=== PATIENT | male | born 1950 | race Two or more races ===

== ENCOUNTER 2016-05-26 11:25 | Emergency (ER) | payer MEDICARE, MEDICAID ==
[2016-05-26] MEDS ORDERED: Sodium Chloride 0.9% 10 ML Syringe FLUSH PRN (11:28)
[2016-05-26 11:50] VITALS: BP 121/64
--- NOTE | 2016-05-26 11:56 | CT ---
Head CT Technique: Multiple axial sections through the brain were obtained. Intravenous contrast was not utilized. Comparison: No previous study. Findings: Artifact identified within the left side of the suprasellar cistern compatible with surgical clip from aneurysm repair. Previous left-sided craniotomy is seen. Encephalomalacia change is noted within the left temporal lobe. Ventricles along with basal cisterns and sulci over convexities are moderately prominent. Low density is noted within the left frontal lobe also felt to represent encephalomalacia. Minimal diminished density is noted within the periventricular white matter compatible with small vessel ischemic demyelination change. No other abnormal parenchymal densities are seen. No evidence of intracranial hemorrhage. Bone window settings were reviewed which shows slight mucosal thickening within the right side of the sphenoid sinus which is felt to be incidental. No acute calvarial abnormality is seen. Impression: 1. Artifact from aneurysm clip located within the left side of the suprasellar cistern. 2. Encephalomalacia within the left frontal and left temporal lobe. Mild small vessel ischemic change is noted within the periventricular white matter. 3. Other incidental findings. Nothing acute is identified. Diagnostic code #2
--- NOTE | 2016-05-26 12:04 | CR ---
Chest: Portable view of the chest was obtained. Comparison: No previous study. Heart size and mediastinum are within normal limits. Lungs are clear with no acute infiltrates. Bony structures are grossly intact. Impression: 1. Nothing acute is identified on portable chest x-ray. Diagnostic code #1
--- NOTE | 2016-05-26 13:11 | EDM.PDOC ---
ED HPI NEURO - General Chief Complaint: Neurological Problem Stated Complaint: [facility] Time Seen by Provider: 05/26/16 11:28 Source of Information: Reports: EMS, [facility] records History Limitations: Reports: Altered mental status - History of Present Illness INITIAL COMMENTS - FREE TEXT/NARRATIVE: The patient presents from [facility] in [place] with neurological complaints. He came by [place] [facility]. He has a history of an cerebral aneurysm and bleed with surgery. He has some cognitive deficits from that. This morning they noted that he was leaning more to the left side when sitting and standing. They were concerned he had another stroke. He has a productive cough but no fever. When I asked him if anything hurts, he said to get out of my room. He had no other complaints here. Timing/Duration: Reports: Hour(s): Location (Neuro Complaint): Reports: other (Leaning to the left) Quality (Neuro Complaint): Reports: weakness Severity: mild Improves with: Reports: None Worsens with: Reports: None Associated Symptoms: Reports: no other symptoms - Related Data Allergies/ADRs: Allergies Allergy/AdvReac Type Severity Reaction Status Date / Time No Known Allergies Allergy Verified 05/26/16 11:34 Home Meds: Home Meds Acetaminophen [Tylenol] 650 mg PO Q4H PRN 05/26/16 [History] Ascorbate Calcium [Vitamin C] 500 mg PO TID 05/26/16 [History] Aspirin 81 mg PO DAILY 05/26/16 [History] Azithromycin [IJD: Azithromycin] 250 mg PO DAILY #6 tab 05/26/16 [Rx] LORazepam [Ativan] 0.5 mg PO BID 05/26/16 [History] Loperamide HCl [Imodium A-D] 4 mg PO ONETIME 05/26/16 [History] Magnesium Hydroxide [Milk of Magnesia] 30 ml PO DAILY PRN 05/26/16 [History] fentaNYL [Duragesic] 25 mcg TOP Q72H 05/26/16 [History] risperiDONE 0.5 mg PO DAILY 05/26/16 [History] risperiDONE 1 mg PO DAILY 05/26/16 [History] Past Medical History Cardiovascular History: Reports: Aneurysm, Blood clots/VTE/DVT Gastrointestinal History: Reports: Chronic constipation Genitourinary History: Reports: Chronic renal insuffiency Neurological History: Reports: Cerebral aneurysms Psychiatric History: Reports: Anxiety, Dementia, Schizophrenia - Past Surgical History Musculoskeletal Surgical History: Reports: Other (see below) Other Musculoskeletal Surgeries/Procedures:: rotator cuff tear Social & Family History - Tobacco Use Smoking Status *Q: Unknown Ever Smoked - Caffeine Use Caffeine Use: Reports: None - Recreational Drug Use Recreational Drug Use: No ED ROS GENERAL - Review of Systems Review Of Systems: See Below Constitutional: Reports: no symptoms HEENT: Reports: No symptoms Respiratory: Reports: No Symptoms Cardiovascular: Reports: No symptoms Endocrine: Reports: no symptoms GI/Abdominal: Reports: No symptoms : Reports: no symptoms Musculoskeletal: Reports: no symptoms Neurological: Reports: Other (Leaning to the left) ED EXAM, NEURO - Physical Exam Exam: See Below Exam Limited By: Altered mental status (slightly confused) Ears: normal external exam Nose: normal inspection Head Exam: atraumatic, normocephalic Neck: normal inspection Respiratory/Chest: no respiratory distress, rhonchi (Cleared after coughing) Cardiovascular: regular rate, rhythm, no edema, no murmur GI/Abdominal: soft, non tender, no organomegaly, no mass Neurological: alert, other (Generalized weakness. He will talke but will not answer my questions.) EKG INTERPRETATION EKG Date: 05/26/16 Time: 11:40 Rhythm: NSR Rate (beats/min): 91 [place]: normal P-wave: present QRS: normal ST-T: normal QT: normal Course - Vital Signs Last Recorded V/S: Last Vital Signs Temp 97.4 F 05/26/16 11:44 Pulse 91 05/26/16 11:44 Resp 16 05/26/16 11:44 BP 121/64 05/26/16 11:44 Pulse Ox 92 L 05/26/16 11:44 - Orders/Labs/Meds Orders: Active Orders 24 hr Category Date Time Status Cardiac Monitoring [RC] . DIRECTED Care 05/26/16 11:28 Active EKG Documentation Completion [RC] STAT Care 05/26/16 11:28 Active Oxygen Therapy [RC] PRN Care 05/26/16 11:28 Active Peripheral IV Care [RC] . DIRECTED Care 05/26/16 11:29 Active Sodium Chloride 0.9% [Saline Flush] Med 05/26/16 11:28 Active 10 ml FLUSH ASDIRECTED PRN Peripheral IV Insertion Adult [OM.PC] Stat Oth 05/26/16 11:28 Ordered Medication Orders Sodium Chloride (Saline Flush) 10 ml FLUSH ASDIRECTED PRN PRN Reason: Keep Vein Open Last Admin: 05/26/16 11:58 Dose: 10 ml Labs: Laboratory Tests 05/26/16 05/26/16 05/26/16 Range/Units 11:54 11:54 12:25 WBC 12.24 H (4.23-9.07) K/mm3 RBC 3.79 L (4.63-6.08) M/mm3 Hgb 12.2 L (13.7-17.5) gm/L Hct 37.8 L (40.1-51.0) % MCV 99.7 H (79.0-92.2) fl MCH 32.2 (25.7-32.2) pg MCHC 32.3 (32.2-35.5) g/dl RDW Std Deviation 45.8 H (35.1-43.9) fL Plt Count 256 (163-337) K/mm3 MPV 9.7 (9.4-12.3) fl Neut % (Auto) 81.3 H (34.0-67.9) % Lymph % (Auto) 8.5 L (21.8-53.1) % [place] % (Auto) 6.9 (5.3-12.2) % Eos % (Auto) 3.0 (0.8-7.0) Baso % (Auto) 0.1 (0.1-1.2) % Neut # (Auto) 9.94 H (1.78-5.38) K/mm3 Lymph # (Auto) 1.04 L (1.32-3.57) K/mm3 [place] # (Auto) 0.85 H (0.30-0.82) K/mm3 Eos # (Auto) 0.37 (0.04-0.54) K/mm3 Baso # (Auto) 0.01 (0.01-0.08) K/mm3 Manual Slide Review Abnormal smear Sodium 142 (136-145) mEq/L Potassium 4.5 (3.5-5.1) mEq/L Chloride 105 (98-107) mEq/L Carbon Dioxide 28 (21-32) mEq/L Anion Gap 13.5 (5-15) BUN 23 H (7-18) mg/dL Creatinine 1.4 H (0.7-1.3) mg/dL Est Cr Clr Drug Dosing TNP Estimated GFR (MDRD) 50 (>60) mL/min BUN/Creatinine Ratio 16.4 (14-18) Glucose 98 (80-115) mg/dL Calcium 9.7 (8.5-10.1) mg/dL Total Bilirubin 0.5 (0.2-1.0) mg/dL AST 32 (15-37) U/L ALT 32 (16-63) U/L Alkaline Phosphatase 47 (46-116) U/L Troponin I < 0.017 (0.00-0.056) ng/mL Total Protein 7.8 (6.4-8.2) g/dl Albumin 3.7 (3.4-5.0) g/dl Globulin 4.1 gm/dL Albumin/Globulin Ratio 0.9 L (1-2) Urine Color Yellow (Yellow) Urine Appearance Clear (Clear) Urine pH 6.0 (5.0-8.0) Ur Specific [place] 1.025 (1.005-1.030) Urine Protein 1+ H (Negative) Urine Glucose (UA) Negative (Negative) Urine Ketones 2+ H (Negative) Urine Occult Blood Trace-lysed H (Negative) Urine Nitrite Negative (Negative) Urine Bilirubin 1+ H (Negative) Urine Urobilinogen 0.2 (0.2-1.0) Ur Leukocyte Esterase Negative (Negative) Urine RBC 0-5 (0-5) /hpf Urine WBC 0-5 (0-5) /hpf Ur Epithelial Cells Not seen (0-5) /hpf Urine Bacteria Few (FEW) /hpf Urine Mucus Few (FEW) /hpf Meds: Medications Generic Name Dose Route Start Last Admin Trade Name Freq PRN Reason Stop Dose Admin Sodium Chloride 10 ml 05/26/16 11:28 05/26/16 11:58 Saline Flush FLUSH 10 ml ASDIRECTED PRN Administration Keep Vein Open - Re-Assessments/Exams Free Text/Narrative Re-Assessment/Exam: 05/26/16 13:12 I ordered an IV saline lock, oxygen, EKG, CXR, CT of his head, labs and UA. His EKG shows a NSR with no acute changes. His CXR shows nothing acute. His CT of his head shows artifact from aneurysm clip located within the left side of the suprasellar cistern. Encephalomalacia within the left frontal and left temporal lobe. Mild small vessel ischemic change is noted within the periventricular white matter. Nothing acute is identified. His WBC was elevated at 12.24. His Hgb was a little low at 12.2. His creatinine was elevated at 1.4. His troponin was negative. His UA was negative for UTI. I feel he has some bronchitis and may benefit from some zithromax. 05/26/16 13:23 The patient is up walking around and doing good. I will discharge him back to the detention. Departure - Departure Time of Disposition: 13:20 Disposition: Home, Self-Care 01 Condition: good Clinical Impression: Weakness, Bronchitis Prescriptions: Azithromycin [IJD: Azithromycin] 250 mg PO DAILY #6 tab Referrals: Eze Steve MD [Primary Care Provider] - 1 Week Forms: ED Department Discharge Additional Instructions: Take the zithromax 2 pills on day 1 and 1 pill on day 2 through 5. Take your medication as prescribed. Please return if you are worse. - My Orders Last 24 Hours: My Active Orders 05/26/16 11:28 Cardiac Monitoring [RC] . DIRECTED EKG Documentation Completion [RC] STAT Oxygen Therapy [RC] PRN Sodium Chloride 0.9% [Saline Flush] 10 ml FLUSH ASDIRECTED PRN Peripheral IV Insertion Adult [OM.PC] Stat 05/26/16 11:29 Peripheral IV Care [RC] . DIRECTED - Assessment/Plan Last 24 Hours: My Active Orders 05/26/16 11:28 Cardiac Monitoring [RC] . DIRECTED EKG Documentation Completion [RC] STAT Oxygen Therapy [RC] PRN Sodium Chloride 0.9% [Saline Flush] 10 ml FLUSH ASDIRECTED PRN Peripheral IV Insertion Adult [OM.PC] Stat 05/26/16 11:29 Peripheral IV Care [RC] . DIRECTED
== END 2016-05-26 14:20 | disposition home or self-care (01) ==
LOC: JD.ED 11:25
DX: R53.1 Weakness (principal); J40 Bronchitis, not specified as acute or chronic; N18.9 Chronic kidney disease, unspecified; F41.9 Anxiety disorder, unspecified; F03.90 Unspecified dementia, unspecified severity, without behavioral disturbance, psychotic disturbance, mood disturbance, and anxiety; F20.9 Schizophrenia, unspecified; Z98.890 Other specified postprocedural states; Z79.2 Long term (current) use of antibiotics; Z79.899 Other long term (current) drug therapy; Z79.82 Long term (current) use of aspirin
CPT/HCPCS: 36415; 70450; 71010; 80053; 81001; 84484; 85025; 93005; 99285; J7050

== ENCOUNTER 2016-08-14 15:22 | Inpatient (IN) | payer MEDICARE, MEDICAID ==
--- NOTE | 2016-08-14 16:33 | EDM.PDOC ---
ED HPI GENERAL MEDICAL PROBLEM - General Chief Complaint: Lower Extremity Injury/Pain Stated Complaint: FEVER, UNABLE TO WALK Time Seen by Provider: 08/14/16 15:50 Source of Information: Reports: Fpc Records History Limitations: Reports: Altered Mental Status - History of Present Illness INITIAL COMMENTS - FREE TEXT/NARRATIVE: Patient is a 66-year-old male with a history of Alzheimer's dementia who presents from [facility] with concerns of inability to walk and having a fever. Staff notes patient had a fever of 100.0F and was given Tylenol earlier in the day. He reports to the ED with temperature on admission of 97.6. Patient has felt warm to touch per staff. In addition patient has a lesion to the right ear. They've been treating with Silvadene. It has only mild redness noted. No drainage noted. Unclear how lesion started. There was no recent fall. Patient is normally able to ambulate on his own accord with no difficulties. Patient has a history of cerebral aneurysms nonruptured with aneurysm clipping, anxiety, dementia, schizophrenia, bipolar, anemia, chronic kidney disease, DVTs , and bilateral rotator cuff tears. He is on a multitude of medications please see list. 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 - Related Data Allergies Allergy/AdvReac Type Severity Reaction Status Date / Time No Known Allergies Allergy Verified 08/14/16 15:58 Home Meds: Home Meds Acetaminophen [Tylenol] 650 mg PO Q4H PRN 05/26/16 [History] Ascorbate Calcium [Vitamin C] 500 mg PO TID 05/26/16 [History] Aspirin 81 mg PO DAILY 05/26/16 [History] Magnesium Hydroxide [Milk of Magnesia] 30 ml PO DAILY PRN 05/26/16 [History] fentaNYL [Duragesic] 12 mcg TOP Q72H 05/26/16 [History] risperiDONE 1 mg PO DAILY 05/26/16 [History] Sennosides/Docusate Sodium [Senna-Docusate Sodium] 1 tab PO QAM 08/14/16 [ History] Silver Sulfadiazine [Silvadene 1% Cream 20 GM] 1 TOP BID 08/15/16 [History] Past Medical History Cardiovascular History: Reports: Aneurysm, Blood Clots/VTE/DVT Gastrointestinal History: Reports: Chronic Constipation Genitourinary History: Reports: Chronic Renal Insuffiency Neurological History: Reports: Cerebral Aneurysms Psychiatric History: Reports: Anxiety, Dementia, Schizophrenia - Past Surgical History Musculoskeletal Surgical History: Reports: Other (See Below) Social & Family History - Tobacco Use Smoking Status *Q: Never Smoker Second Hand Smoke Exposure: No - Caffeine Use Caffeine Use: Reports: None - Recreational Drug Use Recreational Drug Use: No Review of Systems - Review of Systems Review Of Systems: Unable To Obtain ED EXAM, GENERAL - Physical Exam Exam: See Below Exam Limited By: Other (Dementia, uncooperative) General Appearance: Alert, WD/WN, No Apparent Distress, Cachetic Eye Exam: Bilateral Eye: Other (left pupil >right pupil non reactive to light. Right pupil is pinpoint. Patient normally wears a patch over the left eye, presumably blind. Left upper eyelid is droopier in comparison to the right. ) Ears: Hearing Grossly Normal, Other (small open lesion to the right helix with mild erythema. no draining present. ) Ear Exam: Left Ear: TM normal, Bilateral Ear: Canal Normal, Other (right TM obscurred with cerumen) Nose: Normal Inspection, Nasal Drainage, Clear Rhinorrhea Throat/Mouth: Normal Voice, No Airway Compromise, Other (no facial droop or tongue deviation) Neck: Normal Inspection, Supple, Non-Tender, Full Range of Motion. No: Lymphadenopathy (L), Lymphadenopathy (R) Respiratory/Chest: No Respiratory Distress, Lungs Clear, Normal Breath Sounds, No Accessory Muscle Use, Chest Non-Tender Cardiovascular: Normal Peripheral Pulses, Regular Rate, Rhythm Peripheral Pulses: 2+: Radial (R) GI/Abdominal: Normal Bowel Sounds, Soft, Non-Tender, No Organomegaly, No Distention, No Mass, Pelvis Stable (Male) Exam: Normal Inspection, Circumcised Back Exam: Normal Inspection, Full Range of Motion Extremities: Normal Inspection, Normal Range of Motion, Non-Tender, No Pedal Edema, Normal Capillary Refill, Other (Patient was able to weight bare and move via shuffling feet. No assistance required. Moves all extremities. ) Neurological: Alert, CN II-XII Intact, Other (Weakness noted to upper extremities bilaterally. No discrepancy noted. ) Psychiatric: Flat Affect Skin Exam: Warm, Dry, Normal Color Course - Vital Signs Last Recorded V/S: Last Vital Signs Temp 98.2 F 08/15/16 02:46 Pulse 86 08/15/16 02:46 Resp 14 08/15/16 02:46 BP 98/54 L 08/15/16 02:46 Pulse Ox 93 L 08/15/16 10:21 - Orders/Labs/Meds Orders: Active Orders 24 hr Category Date Time Status Chest 1V Frontal [CR] Stat Exams 08/14/16 16:27 Taken CULTURE BLOOD [BC] Stat Lab 08/14/16 17:00 Results CULTURE BLOOD [BC] Stat Lab 08/14/16 18:10 Received Blood Culture x2 Reflex Set [OM.PC] Stat Oth 08/14/16 16:32 Ordered Medication Orders Acetaminophen (Tylenol) 650 mg PO Q6H PRN PRN Reason: Fever Last Admin: 08/15/16 09:35 Dose: 650 mg Albuterol (Proventil Neb Soln) 2.5 mg NEB Q4HRRT PRN PRN Reason: Shortness of Breath Albuterol/Ipratropium (Duoneb 3.0-0.5 Mg/3 Ml) 3 ml NEB QID PRN PRN Reason: Shortness of Breath Aspirin (Aspirin) 81 mg PO DAILY [facility] Last Admin: 08/15/16 09:12 Dose: 81 mg Enoxaparin Sodium (Lovenox) 30 mg SUBCUT DAILY [facility] Last Admin: 08/15/16 09:12 Dose: 30 mg Fentanyl (Duragesic) 25 mcg TOP Q72H [facility] Last Admin: 08/14/16 22:11 Dose: 25 mcg Piperacillin Sod/Tazobactam (Sod 4.5 gm/ Sodium Chloride) 100 mls @ 25 mls/hr IV Q8H [facility] Last Admin: 08/15/16 05:36 Dose: 25 mls/hr Sodium Chloride (Normal Saline) 1,000 mls @ 125 mls/hr IV ASDIRECTED [facility] Last Admin: 08/15/16 05:37 Dose: 125 mls/hr Infusion: 08/15/16 05:37 Dose: 125 mls/hr Admin: 08/14/16 22:03 Dose: 125 mls/hr Ibuprofen (Motrin) 600 mg PO Q8H PRN PRN Reason: Pain (moderate 4-6) Last Admin: 08/14/16 22:05 Dose: 600 mg Miscellaneous Information (Remove Patch) 1 ea TRDERM Q72H [facility] Last Admin: 08/14/16 22:15 Dose: 1 ea Risperidone (Risperidal) 1 mg PO DAILY [facility] Last Admin: 08/15/16 09:12 Dose: 1 mg Senna/Docusate Sodium (Senna Plus) 1 tab PO QAM [facility] Last Admin: 08/15/16 09:12 Dose: 1 tab Labs: Laboratory Tests 08/14/16 08/14/16 08/14/16 Range/Units 17:00 17:00 17:00 WBC 23.74 H (4.23-9.07) K/mm3 RBC 3.96 L (4.63-6.08) M/mm3 Hgb 12.8 L (13.7-17.5) gm/L Hct 39.4 L (40.1-51.0) % MCV 99.5 H (79.0-92.2) fl MCH 32.3 H (25.7-32.2) pg MCHC 32.5 (32.2-35.5) g/dl RDW Std Deviation 47.2 H (35.1-43.9) fL Plt Count 196 (163-337) K/mm3 MPV 9.9 (9.4-12.3) fl Neut % (Auto) 88.2 H (34.0-67.9) % Lymph % (Auto) 4.0 L (21.8-53.1) % [place] % (Auto) 3.8 L (5.3-12.2) % Eos % (Auto) 3.6 (0.8-7.0) Baso % (Auto) 0.1 (0.1-1.2) % Neut # (Auto) 20.92 H (1.78-5.38) K/mm3 Lymph # (Auto) 0.96 L (1.32-3.57) K/mm3 [place] # (Auto) 0.91 H (0.30-0.82) K/mm3 Eos # (Auto) 0.85 H (0.04-0.54) K/mm3 Baso # (Auto) 0.02 (0.01-0.08) K/mm3 Manual Slide Review Abnormal smear Sodium 142 (136-145) mEq/L Potassium 4.6 (3.5-5.1) mEq/L Chloride 104 (98-107) mEq/L Carbon Dioxide 25 (21-32) mEq/L Anion Gap 17.6 H (5-15) BUN 34 H (7-18) mg/dL Creatinine 1.9 H (0.7-1.3) mg/dL Est Cr Clr Drug Dosing TNP Estimated GFR (MDRD) 35 (>60) mL/min BUN/Creatinine Ratio 17.9 (14-18) Glucose 104 (80-115) mg/dL Calcium 10.1 (8.5-10.1) mg/dL Total Bilirubin 0.8 (0.2-1.0) mg/dL AST 50 H (15-37) U/L ALT 35 (16-63) U/L Alkaline Phosphatase 42 L (46-116) U/L C-Reactive Protein 11.7 H* (<1.0) mg/dL Total Protein 7.8 (6.4-8.2) g/dl Albumin 3.6 (3.4-5.0) g/dl Globulin 4.2 gm/dL Albumin/Globulin Ratio 0.9 L (1-2) TSH 3rd Generation 1.797 (0.358-3.74) uIU/mL Urine Color (Yellow) Urine Appearance (Clear) Urine pH (5.0-8.0) Ur Specific [place] (1.005-1.030) Urine Protein (Negative) Urine Glucose (UA) (Negative) Urine Ketones (Negative) Urine Occult Blood (Negative) Urine Nitrite (Negative) Urine Bilirubin (Negative) Urine Urobilinogen (0.2-1.0) Ur Leukocyte Esterase (Negative) Urine RBC (0-5) /hpf Urine WBC (0-5) /hpf Ur Epithelial Cells (0-5) /hpf Amorphous Sediment (NOT SEEN) /hpf Urine Bacteria (FEW) /hpf Hyaline Casts (0-5) /lpf Urine Mucus (FEW) /hpf 08/14/16 Range/Units 17:35 WBC (4.23-9.07) K/mm3 RBC (4.63-6.08) M/mm3 Hgb (13.7-17.5) gm/L Hct (40.1-51.0) % MCV (79.0-92.2) fl MCH (25.7-32.2) pg MCHC (32.2-35.5) g/dl RDW Std Deviation (35.1-43.9) fL Plt Count (163-337) K/mm3 MPV (9.4-12.3) fl Neut % (Auto) (34.0-67.9) % Lymph % (Auto) (21.8-53.1) % [place] % (Auto) (5.3-12.2) % Eos % (Auto) (0.8-7.0) Baso % (Auto) (0.1-1.2) % Neut # (Auto) (1.78-5.38) K/mm3 Lymph # (Auto) (1.32-3.57) K/mm3 [place] # (Auto) (0.30-0.82) K/mm3 Eos # (Auto) (0.04-0.54) K/mm3 Baso # (Auto) (0.01-0.08) K/mm3 Manual Slide Review Sodium (136-145) mEq/L Potassium (3.5-5.1) mEq/L Chloride (98-107) mEq/L Carbon Dioxide (21-32) mEq/L Anion Gap (5-15) BUN (7-18) mg/dL Creatinine (0.7-1.3) mg/dL Est Cr Clr Drug Dosing Estimated GFR (MDRD) (>60) mL/min BUN/Creatinine Ratio (14-18) Glucose (80-115) mg/dL Calcium (8.5-10.1) mg/dL Total Bilirubin (0.2-1.0) mg/dL AST (15-37) U/L ALT (16-63) U/L Alkaline Phosphatase (46-116) U/L C-Reactive Protein (<1.0) mg/dL Total Protein (6.4-8.2) g/dl Albumin (3.4-5.0) g/dl Globulin gm/dL Albumin/Globulin Ratio (1-2) TSH 3rd Generation (0.358-3.74) uIU/mL Urine Color [place] H (Yellow) Urine Appearance Slt cloudy H (Clear) Urine pH 5.5 (5.0-8.0) Ur Specific [place] 1.025 (1.005-1.030) Urine Protein 1+ H (Negative) Urine Glucose (UA) Negative (Negative) Urine Ketones 1+ H (Negative) Urine Occult Blood 1+ H (Negative) Urine Nitrite Negative (Negative) Urine Bilirubin 1+ H (Negative) Urine Urobilinogen 0.2 (0.2-1.0) Ur Leukocyte Esterase Negative (Negative) Urine RBC 20-30 H (0-5) /hpf Urine WBC 0-5 (0-5) /hpf Ur Epithelial Cells 0-5 (0-5) /hpf Amorphous Sediment Few H (NOT SEEN) /hpf Urine Bacteria Moderate H (FEW) /hpf Hyaline Casts 5-10 H (0-5) /lpf Urine Mucus Few (FEW) /hpf Meds: Medications Generic Name Dose Route Start Last Admin Trade Name Freq PRN Reason Stop Dose Admin Acetaminophen 650 mg 08/14/16 20:38 08/15/16 09:35 Tylenol PO 650 mg Q6H PRN Administration Fever Albuterol 2.5 mg 08/14/16 20:45 Proventil Neb Soln NEB Q4HRRT PRN Shortness of Breath Albuterol/Ipratropium 3 ml 08/14/16 20:45 Duoneb 3.0-0.5 Mg/3 Ml NEB QID PRN Shortness of Breath Aspirin 81 mg 08/15/16 09:00 08/15/16 09:12 Aspirin PO 81 mg DAILY KATIE Administration Enoxaparin Sodium 30 mg 08/15/16 09:00 08/15/16 09:12 Lovenox SUBCUT 30 mg DAILY KATIE Administration Fentanyl 25 mcg 08/14/16 21:00 08/14/16 22:11 Duragesic TOP 25 mcg Q72H KATIE Administration Piperacillin Sod/Tazobactam 100 mls @ 25 mls/hr 08/15/16 06:00 08/15/16 05:36 Sod 4.5 gm/ Sodium Chloride IV 25 mls/hr Q8H KATIE Administration Sodium Chloride 1,000 mls @ 125 mls/hr 08/14/16 20:45 08/15/16 05:37 Normal Saline IV 125 mls/hr ASDIRECTED KATIE Administration Ibuprofen 600 mg 08/14/16 20:42 08/14/16 22:05 Motrin PO 600 mg Q8H PRN Administration Pain (moderate 4-6) Miscellaneous Information 1 ea 08/14/16 21:00 08/14/16 22:15 Remove Patch TRDERM 1 ea Q72H KATIE Administration Risperidone 1 mg 08/15/16 09:00 08/15/16 09:12 Risperidal PO 1 mg DAILY KATIE Administration Senna/Docusate Sodium 1 tab 08/15/16 08:00 08/15/16 09:12 Senna Plus PO 1 tab QAM KATIE Administration Discontinued Medications Generic Name Dose Route Start Last Admin Trade Name Freq PRN Reason Stop Dose Admin Acetaminophen 650 mg 08/14/16 20:31 Tylenol Solution PO Q6H PRN Fever Azithromycin 500 mg 08/15/16 18:57 Zithromax PO 08/15/16 18:58 DAILY ONE Azithromycin 500 mg 08/14/16 18:57 08/14/16 22:02 Zithromax PO 08/14/16 18:58 Not Given DAILY ONE Azithromycin 500 mg 08/14/16 20:35 08/14/16 20:42 Zithromax PO 08/14/16 20:36 500 mg ONETIME ONE Administration Azithromycin 500 mg 08/14/16 22:00 08/14/16 22:02 Zithromax PO 08/14/16 22:01 Not Given DAILY ONE Ceftriaxone Sodium 1 gm/ 100 mls @ 200 mls/hr 08/14/16 17:48 08/14/16 17:59 Sodium Chloride IV 08/14/16 18:17 200 mls/hr ONETIME ONE Administration Sodium Chloride 1,000 mls @ 999 mls/hr 08/14/16 17:53 08/14/16 18:03 Normal Saline IV 08/14/16 18:53 999 mls/hr ONETIME ONE Administration Piperacillin Sod/Tazobactam 100 mls @ 200 mls/hr 08/14/16 22:00 08/14/16 22: 03 Sod 4.5 gm/ Sodium Chloride IV 08/14/16 22:29 200 mls/hr ONETIME ONE Administration - Re-Assessments/Exams Free Text/Narrative Re-Assessment/Exam: Ordered peripheral IV with initial labs and studies include CBC, chem 14, CRP, blood cultures 2, UA with Micro, and chest x-ray. X-ray of the chest did reveal an area to the right lower lobe lung field concerning for possible pneumonia. Patient does have leukocytosis with left shift. Awaiting for remainder of labs to be resulted out. Will go ahead and order 1 g of Rocephin IV. UA is pending. Sodium 142, potassium 4.6, CO2 25, AG 17.6, creatinine 1.9, AST 50, alk phosphatase 42, troponin within normal limits, TSH is with normal limits as well. UA revealed 1+ protein, ketones 2+, occult blood trace, bilirubin 1+, no additional findings. Ordered NS 999 mls/hr and rocephin 1 gram IV. 08/14/16 18:57 Ordered Azithromycin 500mg PO in conjunction with rocephin. 08/14/16 19:19Discussed patient with Dr. Waite Hospitalists manager web application. She will see the patient. 08/14/16 20:03 Patient will be admitted to inpatient [facility] with telemetry. Departure - Departure Time of Disposition: 20:03 Disposition: Admitted As Inpatient 64 Condition: Fair Clinical Impression: DEEPIKA (acute kidney injury) Pneumonia Qualifiers: Pneumonia type: due to unspecified organism Laterality: right Lung location: lower lobe of lung Qualified Code(s): J18.1 - Lobar pneumonia, unspecified organism - Discharge Information - My Orders Last 24 Hours: My Active Orders 08/14/16 16:27 Chest 1V Frontal [CR] Stat 08/14/16 16:32 Blood Culture x2 Reflex Set [OM.PC] Stat 08/14/16 17:00 CULTURE BLOOD [BC] Stat 08/14/16 18:10 CULTURE BLOOD [BC] Stat - Assessment/Plan Last 24 Hours: My Active Orders 08/14/16 16:27 Chest 1V Frontal [CR] Stat 08/14/16 16:32 Blood Culture x2 Reflex Set [OM.PC] Stat 08/14/16 17:00 CULTURE BLOOD [BC] Stat 08/14/16 18:10 CULTURE BLOOD [BC] Stat
--- NOTE | 2016-08-14 17:37 | CT ---
Head CT Technique: Multiple axial sections through the brain were obtained. Intravenous contrast was not utilized. Comparison: Prior head CT exam of 05/26/16. Findings: Artifact noted from aneurysm clip located on the left side. Encephalomalacia is noted within the left temporal and frontal regions. Mild diminished density is noted within the periventricular white matter which is compatible with small vessel ischemic demyelination change. No other abnormal areas of signal are seen. Ventricles along with basal cisterns and sulci over convexities are moderately prominent. No evidence of intracranial hemorrhage. Bone window settings were reviewed which shows previous left sided craniotomy. No acute calvarial abnormality is appreciated. Impression: 1. Artifact from aneurysm clip on the left side. 2. Stable encephalomalacia within the left frontal and left temporal lobe. 3. Senescent change as described above. 4. No acute intracranial abnormality is seen. No significant change is seen from prior head CT exam. Diagnostic code #2
[2016-08-14] MEDS ORDERED: cefTRIAXone 1 GM in Sodium Chloride 0.9% 100 ML IV ONE (17:48)
[2016-08-14] MEDS ORDERED: Sodium Chloride 0.9% 1,000 ML IV ONE (17:53)
[2016-08-14] MEDS ORDERED: Azithromycin 250 MG Tab PO ONE ×3 (18:57→22:00)
[2016-08-14] MEDS ORDERED: Acetaminophen Susp 325 MG/10.15 ML UD Cup PO PRN (20:31)
--- NOTE | 2016-08-14 20:37 | PCM.HP ---
H&P History of Present Illness - General Date of Service: 08/14/16 Admit Problem/Dx: Admission Diagnosis/Problem Admission Diagnosis/Problem Pneumonia Source of Information: Provider History Limitations: Reports: No Limitations - History of Present Illness Initial Comments - Free Text/Narative: 66 year old male with a history Alzheimer Dementia presents febrile. He has had a CXR which suggest RLL infiltrate, labs document an acute infection. He will be admitted to [facility]. IV ATBs have been started in the ED. The history is via review of the EMR and provider, his primary complaint was mental status change and an elevated temperature was noted by the SNF staff. Onset of Symptoms: Reports: Unknown/Unsure Duration of Symptoms: Reports: Day(s):, Getting Worse Location: Reports: Generalized Severity: Moderate Improves with: Reports: Medication Worsens with: Reports: None Context: Reports: Sick Contact (unknown) Associated Symptoms: Reports: Confusion, Malaise, Weakness - Related Data Allergies/Adverse Reactions: Allergies Allergy/AdvReac Type Severity Reaction Status Date / Time No Known Allergies Allergy Verified 08/14/16 15:58 Home Medications: Home Meds Acetaminophen [Tylenol] 650 mg PO Q4H PRN 05/26/16 [History] Ascorbate Calcium [Vitamin C] 500 mg PO TID 05/26/16 [History] Aspirin 81 mg PO DAILY 05/26/16 [History] Magnesium Hydroxide [Milk of Magnesia] 30 ml PO DAILY PRN 05/26/16 [History] fentaNYL [Duragesic] 12 mcg TOP Q72H 05/26/16 [History] risperiDONE 1 mg PO DAILY 05/26/16 [History] Sennosides/Docusate Sodium [Senna-Docusate Sodium] 1 tab PO QAM 08/14/16 [ History] Silver Sulfadiazine [Silvadene 1% Cream 20 GM] 1 TOP BID 08/15/16 [History] Past Medical History Cardiovascular History: Reports: Aneurysm, Blood Clots/VTE/DVT Gastrointestinal History: Reports: Chronic Constipation Genitourinary History: Reports: Chronic Renal Insuffiency Neurological History: Reports: Cerebral Aneurysms Psychiatric History: Reports: Anxiety, Dementia, Schizophrenia - Past Surgical History Musculoskeletal Surgical History: Reports: Other (See Below) Social & Family History - Tobacco Use Smoking Status *Q: Never Smoker Second Hand Smoke Exposure: No - Caffeine Use Caffeine Use: Reports: None - Recreational Drug Use Recreational Drug Use: No H&P Review of Systems - Review of Systems: Review Of Systems: See Below General: Reports: Malaise, Weakness HEENT: Reports: No Symptoms Pulmonary: Reports: Shortness of Breath Cardiovascular: Reports: No Symptoms Gastrointestinal: Reports: No Symptoms Genitourinary: Reports: No Symptoms Musculoskeletal: Reports: No Symptoms Skin: Reports: No Symptoms Psychiatric: Reports: Confusion Neurological: Reports: Confusion Hematologic/Lymphatic: Reports: No Symptoms Immunologic: Reports: No Symptoms Exam - Exam Exam: See Below - Vital Signs Vital Signs: Last Vital Signs Temp 36.4 C 08/14/16 15:50 Pulse 114 H 08/14/16 15:50 Resp 16 08/14/16 15:50 BP 110/60 08/14/16 15:50 Pulse Ox 90 L 08/14/16 15:50 Weight: 44.271 kg - Exam Quality Assessment: Supplemental Oxygen, DVT Prophylaxis General: Alert, Oriented, Cooperative HEENT: Nares Patent, Normal Nasal Septum, Pupils Equal, Pupils Reactive Neck: Supple, Trachea Midline Lungs: Normal Respiratory Effort, Decreased Breath Sounds Cardiovascular: Regular Rate Abdomen: Normal Bowel Sounds, Soft (Male) Exam: Deferred Rectal (Males) Exam: Deferred Back Exam: Normal Inspection Extremities: Normal Inspection, Normal Pulses Skin: Warm Neurological: Cranial Nerves Intact Neuro Extensive - Mental Status: Alert Neuro Extensive - Motor, Sensory, Reflexes: CN II-XII Intact Psychiatric: Alert - Patient Data Result Diagrams: 08/14/16 17:00 08/14/16 17:00 *Q Meaningful Use (ADM) - VTE *Q VTE Criteria *Q: - Stroke *Q Stroke Criteria *Q: - AMI *Q AMI Criteria *Q: - Problem List (1) CKD (chronic kidney disease) SNOMED Code(s): 501742591 ICD Code: N18.9 - CHRONIC KIDNEY DISEASE, UNSPECIFIED Status: Acute Current Visit: Yes (2) Alzheimer's dementia SNOMED Code(s): 74376649 ICD Code: G30.9 - ALZHEIMER'S DISEASE, UNSPECIFIED Status: Acute Current Visit: Yes (3) Schizophrenia SNOMED Code(s): 16179022 ICD Code: F20.9 - SCHIZOPHRENIA, UNSPECIFIED Status: Acute Current Visit : Yes (4) Cerebral aneurysm SNOMED Code(s): 799188795, 498803024 ICD Code: I67.1 - CEREBRAL ANEURYSM, NONRUPTURED Status: Acute Current Visit: Yes (5) DEEPIKA (acute kidney injury) SNOMED Code(s): 60580367 ICD Code: N17.9 - ACUTE KIDNEY FAILURE, UNSPECIFIED Status: Acute Current Visit: Yes (6) Pneumonia SNOMED Code(s): 824170807 ICD Code: J18.9 - PNEUMONIA, UNSPECIFIED ORGANISM Status: Acute Current Visit: Yes Qualifiers: Pneumonia type: due to unspecified organism Laterality: right Lung location: lower lobe of lung Qualified Code(s): J18.1 - Lobar pneumonia, unspecified organism Problem List Initiated/Reviewed/Updated: Yes Orders Last 24hrs: Active Orders 24 hr Category Date Time Status Aspiration Precautions [RC] ASDIRECTED Care 08/14/16 20:30 Active Bedrest Bathroom Privileges [RC] ASDIRECTED Care 08/14/16 20:30 Active Vital Signs [RC] PER UNIT ROUTINE Care 08/14/16 20:30 Active CXR [Chest 2V] [CR] Routine Exams 08/16/16 08:00 Ordered LACTIC ACID [CHEM] DAILY Lab 08/15/16 05:00 Ordered LACTIC ACID [CHEM] DAILY Lab 08/16/16 05:00 Ordered LACTIC ACID [CHEM] DAILY Lab 08/17/16 05:00 Ordered LACTIC ACID [CHEM] DAILY Lab 08/18/16 05:00 Ordered Acetaminophen [Tylenol Solution] Med 08/14/16 20:31 Ordered 650 mg PO Q6H PRN Aspirin Med 08/15/16 09:00 Ordered 81 mg PO DAILY Azithromycin [Zithromax] Med 08/14/16 18:57 Once 500 mg PO DAILY ONE Azithromycin [Zithromax] Med 08/14/16 20:35 Once 500 mg PO ONETIME ONE Docusate Sodium/Sennosides [Senna Plus] Med 08/15/16 08:00 Ordered 1 tab PO QAM Piperacillin/Tazobactam [Zosyn] 4.5 gm Med 08/14/16 20:45 Ordered Sodium Chloride 0.9% [Normal Saline] 100 ml IV Q8H fentaNYL [Duragesic] Med 08/14/16 20:30 Ordered 25 mcg TOP Q72H risperiDONE [RisperiDAL] Med 08/15/16 09:00 Ordered 1 mg PO DAILY Medication Orders Acetaminophen (Tylenol Solution) 650 mg PO Q6H PRN PRN Reason: Fever Aspirin (Aspirin) 81 mg PO DAILY KATIE Azithromycin (Zithromax) 500 mg PO DAILY ONE Stop: 08/14/16 18:58 Azithromycin (Zithromax) 500 mg PO ONETIME ONE Stop: 08/14/16 20:36 Fentanyl (Duragesic) 25 mcg TOP Q72H KATIE Piperacillin Sod/Tazobactam (Sod 4.5 gm/ Sodium Chloride) 100 mls @ 25 mls/hr IV Q8H KATIE Risperidone (Risperidal) 1 mg PO DAILY KATIE Senna/Docusate Sodium (Senna Plus) 1 tab PO QAM KATIE Assessment/Plan Comment:: Impression: Query Asp PNA cf HCAP AMS with baseline Alzheimer dementia/schizophrenia and Anxiety Acute on chronic kidney disease Chronic History of Cerebral Aneurysm s/p clipping DVT Plan: IVF Daily labs Home meds IV ATBs Nebs scheduled and prn SW/PT/OT DVT/GI prophylaxis
[2016-08-14] MEDS ORDERED: Albuterol/Ipratropium 3.0-0.5 MG/3 ML Neb Soln NEB PRN (20:45)
[2016-08-14] MEDS ORDERED: Albuterol 0.083% 2.5 MG/3 ML Neb Soln NEB PRN (20:45)
[2016-08-14] MEDS ORDERED: fentaNYL 25 MCG/HR Transdermal Patch TOP SCH (21:00)
[2016-08-14] MEDS ORDERED: Piperacillin/Tazobactam 4.5 GM in Sodium Chloride 0.9% 100 ML IV ONE (22:00)
[2016-08-14] MEDS: Sodium Chloride 0.9% 1,000 ML IV SCH (22:03)
[2016-08-14] MEDS: Ibuprofen 600 MG Tab PO PRN (22:05)
[2016-08-15] MEDS: Piperacillin/Tazobactam 4.5 GM in Sodium Chloride 0.9% 100 ML IV SCH ×3 (05:36→22:55)
[2016-08-15] MEDS: Sodium Chloride 0.9% 1,000 ML IV SCH ×3 (05:37→22:09)
[2016-08-15] MEDS ORDERED: risperiDONE 1 MG Tab PO SCH (09:00)
[2016-08-15] MEDS: Enoxaparin 30 MG/0.3 ML Syringe SUBCUT SCH (09:12)
[2016-08-15] MEDS: Aspirin 81 MG Tab.Chew PO SCH (09:12)
[2016-08-15] MEDS: Acetaminophen 325 MG Tab PO PRN (09:35)
[2016-08-15] MEDS ORDERED: Magnesium Sulfate/Water 2 GM in Premix Bag 1 BAG IV ONE (11:10)
[2016-08-15] MEDS: fentaNYL 12 MCG/HR Transdermal Patch TRDERM SCH (12:25)
[2016-08-15] MEDS: Remove Patch*FENTANYL TRDERM SCH (12:29)
[2016-08-15] MEDS ORDERED: risperiDONE 1 MG Tab PO ONE (12:30)
--- NOTE | 2016-08-15 13:33 | PCM.PN ---
- General Info Date of Service: 08/15/16 Functional Status: Reports: tolerating diet, ambulating, urinating - Review of Systems General: Reports: Weakness, Malaise HEENT: Reports: no symptoms Pulmonary: Reports: shortness of breath Cardiovascular: Reports: No Symptoms Gastrointestinal: Reports: No symptoms Genitourinary: Reports: no symptoms Musculoskeletal: Reports: no symptoms Skin: Reports: no symptoms Neurological: Reports: No Symptoms Psychiatric: Reports: no symptoms - Patient Data Vitals - most recent: Last Vital Signs Temp 36.8 C 08/15/16 02:46 Pulse 86 08/15/16 02:46 Resp 14 08/15/16 02:46 BP 98/54 L 08/15/16 02:46 Pulse Ox 93 L 08/15/16 10:21 Weight - most recent: 44.271 kg I&O - last 24 hours: Intake & Output 08/14/16 08/15/16 08/15/16 22:59 06:59 14:59 Intake Total 1121 Balance 1121 Lab Results last 24 hrs: Laboratory Results - last 24 hr 08/14/16 08/15/16 08/15/16 Range/Units 21:08 05:42 05:42 WBC (4.23-9.07) K/mm3 RBC (4.63-6.08) M/mm3 Hgb (13.7-17.5) gm/L Hct (40.1-51.0) % MCV (79.0-92.2) fl MCH (25.7-32.2) pg MCHC (32.2-35.5) g/dl RDW Std Deviation (35.1-43.9) fL Plt Count (163-337) K/mm3 MPV (9.4-12.3) fl Neut % (Auto) (34.0-67.9) % Lymph % (Auto) (21.8-53.1) % [place] % (Auto) (5.3-12.2) % Eos % (Auto) (0.8-7.0) Baso % (Auto) (0.1-1.2) % Neut # (Auto) (1.78-5.38) K/mm3 Lymph # (Auto) (1.32-3.57) K/mm3 [place] # (Auto) (0.30-0.82) K/mm3 Eos # (Auto) (0.04-0.54) K/mm3 Baso # (Auto) (0.01-0.08) K/mm3 Manual Slide Review Lactic Acid 0.9 (0.4-2.0) mmol/L Magnesium 1.7 L (1.8-2.4) mg/dl Mycoplasma pneumon IgM Negative (NEGATIVE) MRSA (PCR) Negative 08/15/16 Range/Units 13:02 WBC 16.92 H (4.23-9.07) K/mm3 RBC 3.24 L (4.63-6.08) M/mm3 Hgb 10.6 L (13.7-17.5) gm/L Hct 32.6 L (40.1-51.0) % MCV 100.6 H (79.0-92.2) fl MCH 32.7 H (25.7-32.2) pg MCHC 32.5 (32.2-35.5) g/dl RDW Std Deviation 48.6 H (35.1-43.9) fL Plt Count 151 L (163-337) K/mm3 MPV 10.2 (9.4-12.3) fl Neut % (Auto) 87.8 H (34.0-67.9) % Lymph % (Auto) 8.5 L (21.8-53.1) % [place] % (Auto) 3.2 L (5.3-12.2) % Eos % (Auto) 0.1 L (0.8-7.0) Baso % (Auto) 0.1 (0.1-1.2) % Neut # (Auto) 14.86 H (1.78-5.38) K/mm3 Lymph # (Auto) 1.44 (1.32-3.57) K/mm3 [place] # (Auto) 0.54 (0.30-0.82) K/mm3 Eos # (Auto) 0.02 L (0.04-0.54) K/mm3 Baso # (Auto) 0.01 (0.01-0.08) K/mm3 Manual Slide Review Abnormal smear Lactic Acid (0.4-2.0) mmol/L Magnesium (1.8-2.4) mg/dl Mycoplasma pneumon IgM (NEGATIVE) MRSA (PCR) Med Orders - Current: Current Medications Acetaminophen (Tylenol) 650 mg PO Q6H PRN PRN Reason: Fever Last Admin: 08/15/16 09:35 Dose: 650 mg Albuterol (Proventil Neb Soln) 2.5 mg NEB Q4HRRT PRN PRN Reason: Shortness of Breath Albuterol/Ipratropium (Duoneb 3.0-0.5 Mg/3 Ml) 3 ml NEB QID PRN PRN Reason: Shortness of Breath Aspirin (Aspirin) 81 mg PO DAILY [facility] Last Admin: 08/15/16 09:12 Dose: 81 mg Enoxaparin Sodium (Lovenox) 30 mg SUBCUT DAILY [facility] Last Admin: 08/15/16 09:12 Dose: 30 mg Fentanyl (Duragesic) 12 mcg TRDERM Q72H [facility] Last Admin: 08/15/16 12:25 Dose: 12 mcg Piperacillin Sod/Tazobactam (Sod 4.5 gm/ Sodium Chloride) 100 mls @ 25 mls/hr IV Q8H [facility] Last Admin: 08/15/16 05:36 Dose: 25 mls/hr Sodium Chloride (Normal Saline) 1,000 mls @ 70 mls/hr IV ASDIRECTED [facility] Last Admin: 08/15/16 11:22 Dose: 70 mls/hr Ibuprofen (Motrin) 600 mg PO Q8H PRN PRN Reason: Pain (moderate 4-6) Last Admin: 08/14/16 22:05 Dose: 600 mg Miscellaneous Information (Remove Patch) 1 ea TRDERM Q72H [facility] Last Admin: 08/15/16 12:29 Dose: 1 ea Risperidone (Risperidal) 2 mg PO DAILY [facility] Senna/Docusate Sodium (Senna Plus) 1 tab PO QAM [facility] Last Admin: 08/15/16 09:12 Dose: 1 tab Discontinued Medications Acetaminophen (Tylenol Solution) 650 mg PO Q6H PRN PRN Reason: Fever Azithromycin (Zithromax) 500 mg PO DAILY ONE Stop: 08/15/16 18:58 Azithromycin (Zithromax) 500 mg PO DAILY ONE Stop: 08/14/16 18:58 Last Admin: 08/14/16 22:02 Dose: Not Given Azithromycin (Zithromax) 500 mg PO ONETIME ONE Stop: 08/14/16 20:36 Last Admin: 08/14/16 20:42 Dose: 500 mg Azithromycin (Zithromax) 500 mg PO DAILY ONE Stop: 08/14/16 22:01 Last Admin: 08/14/16 22:02 Dose: Not Given Fentanyl (Duragesic) 25 mcg TOP Q72H [facility] Last Admin: 08/14/16 22:11 Dose: 25 mcg Ceftriaxone Sodium 1 gm/ (Sodium Chloride) 100 mls @ 200 mls/hr IV ONETIME ONE Stop: 08/14/16 18:17 Last Admin: 08/14/16 17:59 Dose: 200 mls/hr Sodium Chloride (Normal Saline) 1,000 mls @ 999 mls/hr IV ONETIME ONE Stop: 08/14/16 18:53 Last Admin: 08/14/16 18:03 Dose: 999 mls/hr Piperacillin Sod/Tazobactam (Sod 4.5 gm/ Sodium Chloride) 100 mls @ 200 mls/hr IV ONETIME ONE Stop: 08/14/16 22:29 Last Admin: 08/14/16 22:03 Dose: 200 mls/hr Sodium Chloride (Normal Saline) 1,000 mls @ 125 mls/hr IV ASDIRECTED [facility] Last Admin: 08/15/16 05:37 Dose: 125 mls/hr Magnesium Sulfate 2 gm/ Premix 50 mls @ 25 mls/hr IV ONETIME ONE Stop: 08/15/16 13:09 Last Admin: 08/15/16 11:22 Dose: 25 mls/hr Miscellaneous Information (Remove Patch) 1 ea TRDERM Q72H [facility] Last Admin: 08/14/16 22:15 Dose: 1 ea Risperidone (Risperidal) 1 mg PO DAILY [facility] Last Admin: 08/15/16 09:12 Dose: 1 mg Risperidone (Risperidal) 1 mg PO ONETIME ONE Stop: 08/15/16 12:31 - Exam Quality Assessment: supplemental oxygen, DVT prophylaxis General: alert, oriented, cooperative, no acute distress HEENT: Pupils equal, Pupils reactive, EOMI Neck: supple, trachea midline - Problem List & Annotations (1) CKD (chronic kidney disease) SNOMED Code(s): 241210674 Code(s): N18.9 - CHRONIC KIDNEY DISEASE, UNSPECIFIED Status: Acute Current Visit: Yes (2) Alzheimer's dementia SNOMED Code(s): 78972586 Code(s): G30.9 - ALZHEIMER'S DISEASE, UNSPECIFIED Status: Acute Current Visit: Yes (3) Schizophrenia SNOMED Code(s): 29431925 Code(s): F20.9 - SCHIZOPHRENIA, UNSPECIFIED Status: Acute Current Visit: Yes (4) Cerebral aneurysm SNOMED Code(s): 845706984, 939743483 Code(s): I67.1 - CEREBRAL ANEURYSM, NONRUPTURED Status: Acute Current Visit: Yes (5) DEEPIKA (acute kidney injury) SNOMED Code(s): 79297801 Code(s): N17.9 - ACUTE KIDNEY FAILURE, UNSPECIFIED Status: Acute Current Visit: Yes (6) Pneumonia SNOMED Code(s): 377292763 Code(s): J18.9 - PNEUMONIA, UNSPECIFIED ORGANISM Status: Acute Current Visit: Yes Qualifiers: Pneumonia type: due to unspecified organism Laterality: right Lung location: lower lobe of lung Qualified Code(s): J18.1 - Lobar pneumonia, unspecified organism - My Orders Last 24 Hours: My Active Orders 08/14/16 20:30 Aspiration Precautions [RC] ASDIRECTED Bedrest Bathroom Privileges [RC] 10,22 Vital Signs [RC] 03,09,15,21 08/14/16 20:38 Acetaminophen [Tylenol] 650 mg PO Q6H PRN 08/14/16 20:42 Ibuprofen [Motrin] 600 mg PO Q8H PRN 08/14/16 20:45 RT Aerosol Therapy [RC] ASDIRECTED Albuterol [Proventil Neb Soln] 2.5 mg NEB Q4HRRT PRN Albuterol/Ipratropium [DuoNeb 3.0-0.5 MG/3 ML] 3 ml NEB QID PRN 08/14/16 20:47 CULTURE SPUTUM + SMEAR [RM] Routine 08/14/16 20:48 Antiembolic Devices [RC] PER UNIT ROUTINE LIAN Hose [Antiembolic Hose] [OM.PC] Routine 08/14/16 21:23 Code Status [Resuscitation Status] Routine 08/15/16 03:17 RESPIRATORY PANEL BY PCR [MREF] Routine 08/15/16 06:00 Piperacillin/Tazobactam [Zosyn] 4.5 gm Sodium Chloride 0.9% [Normal Saline] 100 ml IV Q8H 08/15/16 08:00 Docusate Sodium/Sennosides [Senna Plus] 1 tab PO QAM 08/15/16 09:00 Aspirin 81 mg PO DAILY Enoxaparin [Lovenox] 30 mg SUBCUT DAILY 08/15/16 09:35 STREP PNEUMONIAE ANTIGEN [MREF] Routine 08/15/16 11:15 Sodium Chloride 0.9% [Normal Saline] 1,000 ml IV ASDIRECTED 08/15/16 12:00 fentaNYL [Duragesic] 12 mcg TRDERM Q72H 08/15/16 13:02 BMP [BASIC METABOLIC PANEL,BMP] [CHEM] Routine CRP [C-REACTIVE PROTEIN] [CHEM] Routine MYCOPLASMA PNEUMONIAE IGM AB [CHEM] Routine 08/15/16 Breakfast Full Liquid Diet [DIET] 08/16/16 05:00 BMP [BASIC METABOLIC PANEL,BMP] [CHEM] DAILY CBC WITH AUTO DIFF [HEME] DAILY CRP [C-REACTIVE PROTEIN] [CHEM] Routine LACTIC ACID [CHEM] DAILY MAGNESIUM [CHEM] DAILY 08/16/16 08:00 CXR [Chest 2V] [CR] Routine 08/16/16 09:00 risperiDONE [RisperiDAL] 2 mg PO DAILY 08/17/16 05:00 BMP [BASIC METABOLIC PANEL,BMP] [CHEM] DAILY CBC WITH AUTO DIFF [HEME] DAILY LACTIC ACID [CHEM] DAILY MAGNESIUM [CHEM] DAILY 08/18/16 05:00 BMP [BASIC METABOLIC PANEL,BMP] [CHEM] DAILY CBC WITH AUTO DIFF [HEME] DAILY LACTIC ACID [CHEM] DAILY MAGNESIUM [CHEM] DAILY 08/18/16 12:00 Remove Patch 1 ea TRDERM Q72H 08/19/16 05:00 BMP [BASIC METABOLIC PANEL,BMP] [CHEM] DAILY CBC WITH AUTO DIFF [HEME] DAILY - Plan Plan:: Impression: Query Asp PNA cf HCAP AMS with baseline Alzheimer dementia/schizophrenia and Anxiety Acute on chronic kidney disease Chronic History of Cerebral Aneurysm s/p clipping DVT Plan: IVF Daily labs Home meds IV ATBs Nebs scheduled and prn SW/PT/OT DVT/GI prophylaxis
[2016-08-15] MEDS ORDERED: Azithromycin 250 MG Tab PO ONE (18:57)
[2016-08-16] MEDS: Piperacillin/Tazobactam 4.5 GM in Sodium Chloride 0.9% 100 ML IV SCH ×2 (06:13→17:43)
[2016-08-16] MEDS: Aspirin 81 MG Tab.Chew PO SCH (08:45)
[2016-08-16] MEDS: risperiDONE 1 MG Tab PO SCH (08:45)
[2016-08-16] MEDS: Enoxaparin 30 MG/0.3 ML Syringe SUBCUT SCH (08:45)
--- NOTE | 2016-08-16 08:51 | PCM.PN ---
- General Info Date of Service: 08/16/16 Functional Status: Reports: tolerating diet, ambulating, urinating - Review of Systems General: Reports: Weakness HEENT: Reports: no symptoms Pulmonary: Reports: no symptoms Cardiovascular: Reports: No Symptoms Gastrointestinal: Reports: No symptoms, Nausea Musculoskeletal: Reports: no symptoms Skin: Reports: no symptoms Neurological: Reports: No Symptoms Psychiatric: Reports: no symptoms - Patient Data Vitals - most recent: Last Vital Signs Temp 36.6 C 08/15/16 20:21 Pulse 83 08/15/16 20:21 Resp 16 08/15/16 20:21 BP 138/63 08/15/16 20:21 Pulse Ox 94 L 08/15/16 20:21 Weight - most recent: 44.815 kg I&O - last 24 hours: Intake & Output 08/15/16 08/16/16 08/16/16 22:59 06:59 14:59 Intake Total 1270 1040 Balance 1270 1040 Lab Results last 24 hrs: Laboratory Results - last 24 hr 08/15/16 08/15/16 08/16/16 Range/Units 13:02 13:02 05:09 WBC 16.92 H (4.23-9.07) K/mm3 RBC 3.24 L (4.63-6.08) M/mm3 Hgb 10.6 L (13.7-17.5) gm/L Hct 32.6 L (40.1-51.0) % MCV 100.6 H (79.0-92.2) fl MCH 32.7 H (25.7-32.2) pg MCHC 32.5 (32.2-35.5) g/dl RDW Std Deviation 48.6 H (35.1-43.9) fL Plt Count 151 L (163-337) K/mm3 MPV 10.2 (9.4-12.3) fl Neut % (Auto) 87.8 H (34.0-67.9) % Lymph % (Auto) 8.5 L (21.8-53.1) % [place] % (Auto) 3.2 L (5.3-12.2) % Eos % (Auto) 0.1 L (0.8-7.0) Baso % (Auto) 0.1 (0.1-1.2) % Neut # (Auto) 14.86 H (1.78-5.38) K/mm3 Lymph # (Auto) 1.44 (1.32-3.57) K/mm3 [place] # (Auto) 0.54 (0.30-0.82) K/mm3 Eos # (Auto) 0.02 L (0.04-0.54) K/mm3 Baso # (Auto) 0.01 (0.01-0.08) K/mm3 Manual Slide Review Abnormal smear Sodium 142 (136-145) mEq/L Potassium 4.3 (3.5-5.1) mEq/L Chloride 109 H (98-107) mEq/L Carbon Dioxide 24 (21-32) mEq/L Anion Gap 13.3 (5-15) BUN 28 H (7-18) mg/dL Creatinine 1.7 H (0.7-1.3) mg/dL Est Cr Clr Drug Dosing 26.04 mL/min Estimated GFR (MDRD) 40 (>60) mL/min BUN/Creatinine Ratio 16.5 (14-18) Glucose 90 (80-115) mg/dL Lactic Acid 1.0 (0.4-2.0) mmol/L Calcium 9.1 (8.5-10.1) mg/dL Magnesium (1.8-2.4) mg/dl C-Reactive Protein 30.6 H* (<1.0) mg/dL Mycoplasma pneumon IgM Cancelled 08/16/16 08/16/16 Range/Units 05:09 05:09 WBC 10.31 H (4.23-9.07) K/mm3 RBC 3.32 L (4.63-6.08) M/mm3 Hgb 10.7 L (13.7-17.5) gm/L Hct 33.0 L (40.1-51.0) % MCV 99.4 H (79.0-92.2) fl MCH 32.2 (25.7-32.2) pg MCHC 32.4 (32.2-35.5) g/dl RDW Std Deviation 47.4 H (35.1-43.9) fL Plt Count 167 (163-337) K/mm3 MPV 10.2 (9.4-12.3) fl Neut % (Auto) 86.7 H (34.0-67.9) % Lymph % (Auto) 9.0 L (21.8-53.1) % [place] % (Auto) 4.1 L (5.3-12.2) % Eos % (Auto) 0.1 L (0.8-7.0) Baso % (Auto) 0.1 (0.1-1.2) % Neut # (Auto) 8.94 H (1.78-5.38) K/mm3 Lymph # (Auto) 0.93 L (1.32-3.57) K/mm3 [place] # (Auto) 0.42 (0.30-0.82) K/mm3 Eos # (Auto) 0.01 L (0.04-0.54) K/mm3 Baso # (Auto) 0.01 (0.01-0.08) K/mm3 Manual Slide Review Abnormal smear Sodium 138 (136-145) mEq/L Potassium 3.8 (3.5-5.1) mEq/L Chloride 105 (98-107) mEq/L Carbon Dioxide 23 (21-32) mEq/L Anion Gap 13.8 (5-15) BUN 18 (7-18) mg/dL Creatinine 1.3 (0.7-1.3) mg/dL Est Cr Clr Drug Dosing 34.47 mL/min Estimated GFR (MDRD) 55 (>60) mL/min BUN/Creatinine Ratio 13.8 L (14-18) Glucose 83 (80-115) mg/dL Lactic Acid (0.4-2.0) mmol/L Calcium 9.1 (8.5-10.1) mg/dL Magnesium 2.0 (1.8-2.4) mg/dl C-Reactive Protein 21.7 H* (<1.0) mg/dL Mycoplasma pneumon IgM Med Orders - Current: Current Medications Acetaminophen (Tylenol) 650 mg PO Q6H PRN PRN Reason: Fever Last Admin: 08/15/16 09:35 Dose: 650 mg Albuterol (Proventil Neb Soln) 2.5 mg NEB Q4HRRT PRN PRN Reason: Shortness of Breath Albuterol/Ipratropium (Duoneb 3.0-0.5 Mg/3 Ml) 3 ml NEB QID PRN PRN Reason: Shortness of Breath Aspirin (Aspirin) 81 mg PO DAILY [facility] Last Admin: 08/16/16 08:45 Dose: 81 mg Enoxaparin Sodium (Lovenox) 30 mg SUBCUT DAILY [facility] Last Admin: 08/16/16 08:45 Dose: 30 mg Fentanyl (Duragesic) 12 mcg TRDERM Q72H [facility] Last Admin: 08/15/16 12:25 Dose: 12 mcg Piperacillin Sod/Tazobactam (Sod 4.5 gm/ Sodium Chloride) 100 mls @ 25 mls/hr IV Q8H [facility] Last Admin: 08/16/16 06:13 Dose: 25 mls/hr Sodium Chloride (Normal Saline) 1,000 mls @ 70 mls/hr IV ASDIRECTED [facility] Last Admin: 08/15/16 22:09 Dose: 70 mls/hr Ibuprofen (Motrin) 600 mg PO Q8H PRN PRN Reason: Pain (moderate 4-6) Last Admin: 08/14/16 22:05 Dose: 600 mg Miscellaneous Information (Remove Patch) 1 ea TRDERM Q72H [facility] Last Admin: 08/15/16 12:29 Dose: 1 ea Risperidone (Risperidal) 2 mg PO DAILY [facility] Last Admin: 08/16/16 08:45 Dose: 2 mg Senna/Docusate Sodium (Senna Plus) 1 tab PO QAM [facility] Last Admin: 08/16/16 08:45 Dose: 1 tab Discontinued Medications Acetaminophen (Tylenol Solution) 650 mg PO Q6H PRN PRN Reason: Fever Azithromycin (Zithromax) 500 mg PO DAILY ONE Stop: 08/15/16 18:58 Azithromycin (Zithromax) 500 mg PO DAILY ONE Stop: 08/14/16 18:58 Last Admin: 08/14/16 22:02 Dose: Not Given Azithromycin (Zithromax) 500 mg PO ONETIME ONE Stop: 08/14/16 20:36 Last Admin: 08/14/16 20:42 Dose: 500 mg Azithromycin (Zithromax) 500 mg PO DAILY ONE Stop: 08/14/16 22:01 Last Admin: 08/14/16 22:02 Dose: Not Given Fentanyl (Duragesic) 25 mcg TOP Q72H [facility] Last Admin: 08/14/16 22:11 Dose: 25 mcg Ceftriaxone Sodium 1 gm/ (Sodium Chloride) 100 mls @ 200 mls/hr IV ONETIME ONE Stop: 08/14/16 18:17 Last Admin: 08/14/16 17:59 Dose: 200 mls/hr Sodium Chloride (Normal Saline) 1,000 mls @ 999 mls/hr IV ONETIME ONE Stop: 08/14/16 18:53 Last Admin: 08/14/16 18:03 Dose: 999 mls/hr Piperacillin Sod/Tazobactam (Sod 4.5 gm/ Sodium Chloride) 100 mls @ 200 mls/hr IV ONETIME ONE Stop: 08/14/16 22:29 Last Admin: 08/14/16 22:03 Dose: 200 mls/hr Sodium Chloride (Normal Saline) 1,000 mls @ 125 mls/hr IV ASDIRECTED [facility] Last Admin: 08/15/16 05:37 Dose: 125 mls/hr Magnesium Sulfate 2 gm/ Premix 50 mls @ 25 mls/hr IV ONETIME ONE Stop: 08/15/16 13:09 Last Admin: 08/15/16 11:22 Dose: 25 mls/hr Miscellaneous Information (Remove Patch) 1 ea TRDERM Q72H [facility] Last Admin: 08/14/16 22:15 Dose: 1 ea Risperidone (Risperidal) 1 mg PO DAILY [facility] Last Admin: 08/15/16 09:12 Dose: 1 mg Risperidone (Risperidal) 1 mg PO ONETIME ONE Stop: 08/15/16 12:31 Last Admin: 08/15/16 13:52 Dose: 1 mg - Exam Quality Assessment: DVT prophylaxis General: alert, oriented, no acute distress HEENT: Pupils equal, Pupils reactive, EOMI Neck: supple, trachea midline Lungs: Normal respiratory effort Cardiovascular: Regular Rate Abdomen: bowel sounds present, soft, no tenderness, no distension (Male) Exam: Deferred Back Exam: Normal Inspection Extremities: normal pulses Skin: warm Neurological: no new focal deficit Psy/Mental Status: alert - Problem List & Annotations (1) CKD (chronic kidney disease) SNOMED Code(s): 879005318 Code(s): N18.9 - CHRONIC KIDNEY DISEASE, UNSPECIFIED Status: Acute Current Visit: Yes (2) Alzheimer's dementia SNOMED Code(s): 34827279 Code(s): G30.9 - ALZHEIMER'S DISEASE, UNSPECIFIED Status: Acute Current Visit: Yes (3) Schizophrenia SNOMED Code(s): 28133965 Code(s): F20.9 - SCHIZOPHRENIA, UNSPECIFIED Status: Acute Current Visit: Yes (4) Cerebral aneurysm SNOMED Code(s): 065662367, 991412137 Code(s): I67.1 - CEREBRAL ANEURYSM, NONRUPTURED Status: Acute Current Visit: Yes (5) DEEPIKA (acute kidney injury) SNOMED Code(s): 89519088 Code(s): N17.9 - ACUTE KIDNEY FAILURE, UNSPECIFIED Status: Acute Current Visit: Yes (6) Pneumonia SNOMED Code(s): 139798654 Code(s): J18.9 - PNEUMONIA, UNSPECIFIED ORGANISM Status: Acute Current Visit: Yes Qualifiers: Pneumonia type: due to unspecified organism Laterality: right Lung location: lower lobe of lung Qualified Code(s): J18.1 - Lobar pneumonia, unspecified organism - Problem List Review Problem List Initiated/Reviewed/Updated: Yes - My Orders Last 24 Hours: My Active Orders 08/15/16 08:00 Docusate Sodium/Sennosides [Senna Plus] 1 tab PO QAM 08/15/16 09:00 Aspirin 81 mg PO DAILY Enoxaparin [Lovenox] 30 mg SUBCUT DAILY 08/15/16 09:35 STREP PNEUMONIAE ANTIGEN [MREF] Routine 08/15/16 11:15 Sodium Chloride 0.9% [Normal Saline] 1,000 ml IV ASDIRECTED 08/15/16 12:00 fentaNYL [Duragesic] 12 mcg TRDERM Q72H 08/16/16 08:00 CXR [Chest 2V] [CR] Routine 08/16/16 09:00 risperiDONE [RisperiDAL] 2 mg PO DAILY 08/17/16 05:00 BMP [BASIC METABOLIC PANEL,BMP] [CHEM] DAILY CBC WITH AUTO DIFF [HEME] DAILY LACTIC ACID [CHEM] DAILY MAGNESIUM [CHEM] DAILY 08/18/16 05:00 BMP [BASIC METABOLIC PANEL,BMP] [CHEM] DAILY CBC WITH AUTO DIFF [HEME] DAILY LACTIC ACID [CHEM] DAILY MAGNESIUM [CHEM] DAILY 08/18/16 12:00 Remove Patch 1 ea TRDERM Q72H 08/19/16 05:00 BMP [BASIC METABOLIC PANEL,BMP] [CHEM] DAILY CBC WITH AUTO DIFF [HEME] DAILY - Plan Plan:: Impression: Query Asp PNA cf HCAP AMS, resolved with baseline Alzheimer dementia/schizophrenia and Anxiety Acute on chronic kidney disease Chronic History of Cerebral Aneurysm s/p clipping DVT Plan: IVF Daily labs Home meds IV ATBs Nebs scheduled and prn SW/PT/OT DVT/GI prophylaxis DC 24-48 hours
--- NOTE | 2016-08-16 10:52 | CR ---
Chest: 2 views of the chest were obtained. Comparison: Previous chest x-ray of 08/14/16. Mild increasing density is seen within the right lung base from prior exam. This overlies the spine on the lateral view. Lungs otherwise are clear. Lung markings are slightly increased which appear chronic. Heart size and mediastinum are normal. Bony structures are within normal limits for the patient's age. Impression: 1. Right lower lung infiltrate seen on current chest x-ray findings suspicious for pneumonia or aspiration. 2. Mild chronically increased lung markings. Diagnostic code #3
[2016-08-16] MEDS: Acetaminophen 325 MG Tab PO PRN (11:25)
[2016-08-16] MEDS: Sodium Chloride 0.9% 1,000 ML IV SCH (16:18)
[2016-08-17] MEDS: Piperacillin/Tazobactam 4.5 GM in Sodium Chloride 0.9% 100 ML IV SCH ×3 (03:48→17:57)
[2016-08-17] MEDS: Sodium Chloride 0.9% 1,000 ML IV SCH (07:08)
[2016-08-17] MEDS: Enoxaparin 40 MG/0.4 ML Syringe SUBCUT SCH (08:09)
[2016-08-17] MEDS: Aspirin 81 MG Tab.Chew PO SCH (08:09)
[2016-08-17] MEDS: risperiDONE 1 MG Tab PO SCH (08:09)
--- NOTE | 2016-08-17 08:12 | CR ---
Chest: Portable view of the chest was obtained. Comparison: Previous chest x-ray of 05/26/16. Heart size is normal. Mild tortuosity of the thoracic aorta is seen. Lung markings are slightly increased within the inferior right hilar region believed to be chronic. No acute infiltrates are identified. Bony structures are within normal limits for the patient's age. Impression: 1. Incidental findings. Nothing acute is identified on portable chest x-ray. Diagnostic code #2
[2016-08-17] MEDS: Ibuprofen 600 MG Tab PO PRN ×2 (08:46→15:15)
[2016-08-17] MEDS ORDERED: Famotidine 20 MG Tab PO SCH (09:00)
--- NOTE | 2016-08-17 11:46 | PCM.PN ---
<Tanika Hare - Last Filed: 08/17/16 11:34> - General Info Date of Service: 08/17/16 Admission Dx/Problem (Free Text): Admission Diagnosis/Problem Admission Diagnosis/Problem Pneumonia Patient initially seen this morning, was up to [place] with nursing. Returned on team rounding. Pain now more localized to "shoulders". No other concerns. Nursing voices no concerns. Labs significantly improved today. Functional Status: Reports: tolerating diet, ambulating, urinating. Denies: new symptoms - Review of Systems General: Reports: Weakness (generalized- improving). Denies: Fever HEENT: Reports: no symptoms Pulmonary: Reports: cough. Denies: wheezing Cardiovascular: Reports: No Symptoms Gastrointestinal: Reports: No symptoms Genitourinary: Reports: no symptoms Musculoskeletal: Reports: shoulder pain (bilat) Neurological: Reports: Confusion Psychiatric: Reports: confusion - Patient Data Vitals - most recent: Last Vital Signs Temp 98.8 F 08/17/16 08:33 Pulse 89 08/17/16 08:33 Resp 12 08/17/16 08:33 BP 135/52 L 08/17/16 08:33 Pulse Ox 96 08/17/16 08:33 Weight - most recent: 45.722 kg I&O - last 24 hours: Intake & Output 08/16/16 08/17/16 08/17/16 22:59 06:59 14:59 Intake Total 2568 1033 Output Total 600 Balance 1968 1033 Lab Results last 24 hrs: Laboratory Results - last 24 hr 08/17/16 08/17/16 08/17/16 Range/Units 06:31 06:31 06:31 WBC 6.89 (4.23-9.07) K/mm3 RBC 3.66 L (4.63-6.08) M/mm3 Hgb 11.8 L (13.7-17.5) gm/L Hct 36.2 L (40.1-51.0) % MCV 98.9 H (79.0-92.2) fl MCH 32.2 (25.7-32.2) pg MCHC 32.6 (32.2-35.5) g/dl RDW Std Deviation 45.5 H (35.1-43.9) fL Plt Count 184 (163-337) K/mm3 MPV 10.1 (9.4-12.3) fl Neut % (Auto) 81.0 H (34.0-67.9) % Lymph % (Auto) 13.1 L (21.8-53.1) % [place] % (Auto) 5.1 L (5.3-12.2) % Eos % (Auto) 0.6 L (0.8-7.0) Baso % (Auto) 0.1 (0.1-1.2) % Neut # (Auto) 5.58 H (1.78-5.38) K/mm3 Lymph # (Auto) 0.90 L (1.32-3.57) K/mm3 [place] # (Auto) 0.35 (0.30-0.82) K/mm3 Eos # (Auto) 0.04 (0.04-0.54) K/mm3 Baso # (Auto) 0.01 (0.01-0.08) K/mm3 Sodium 143 (136-145) mEq/L Potassium 3.7 (3.5-5.1) mEq/L Chloride 107 (98-107) mEq/L Carbon Dioxide 25 (21-32) mEq/L Anion Gap 14.7 (5-15) BUN 9 (7-18) mg/dL Creatinine 1.2 (0.7-1.3) mg/dL Est Cr Clr Drug Dosing 38.10 mL/min Estimated GFR (MDRD) > 60 (>60) mL/min BUN/Creatinine Ratio 7.5 L (14-18) Glucose 78 L (80-115) mg/dL Lactic Acid 1.3 (0.4-2.0) mmol/L Calcium 9.2 (8.5-10.1) mg/dL Magnesium 1.6 L (1.8-2.4) mg/dl C-Reactive Protein (<1.0) mg/dL 08/17/16 Range/Units 06:31 WBC (4.23-9.07) K/mm3 RBC (4.63-6.08) M/mm3 Hgb (13.7-17.5) gm/L Hct (40.1-51.0) % MCV (79.0-92.2) fl MCH (25.7-32.2) pg MCHC (32.2-35.5) g/dl RDW Std Deviation (35.1-43.9) fL Plt Count (163-337) K/mm3 MPV (9.4-12.3) fl Neut % (Auto) (34.0-67.9) % Lymph % (Auto) (21.8-53.1) % [place] % (Auto) (5.3-12.2) % Eos % (Auto) (0.8-7.0) Baso % (Auto) (0.1-1.2) % Neut # (Auto) (1.78-5.38) K/mm3 Lymph # (Auto) (1.32-3.57) K/mm3 [place] # (Auto) (0.30-0.82) K/mm3 Eos # (Auto) (0.04-0.54) K/mm3 Baso # (Auto) (0.01-0.08) K/mm3 Sodium (136-145) mEq/L Potassium (3.5-5.1) mEq/L Chloride (98-107) mEq/L Carbon Dioxide (21-32) mEq/L Anion Gap (5-15) BUN (7-18) mg/dL Creatinine (0.7-1.3) mg/dL Est Cr Clr Drug Dosing mL/min Estimated GFR (MDRD) (>60) mL/min BUN/Creatinine Ratio (14-18) Glucose (80-115) mg/dL Lactic Acid (0.4-2.0) mmol/L Calcium (8.5-10.1) mg/dL Magnesium (1.8-2.4) mg/dl C-Reactive Protein 10.9 H* (<1.0) mg/dL Med Orders - Current: Current Medications Acetaminophen (Tylenol) 650 mg PO Q6H PRN PRN Reason: Fever Last Admin: 08/16/16 11:25 Dose: 650 mg Albuterol (Proventil Neb Soln) 2.5 mg NEB Q4HRRT PRN PRN Reason: Shortness of Breath Albuterol/Ipratropium (Duoneb 3.0-0.5 Mg/3 Ml) 3 ml NEB QID PRN PRN Reason: Shortness of Breath Aspirin (Aspirin) 81 mg PO DAILY [facility] Last Admin: 08/17/16 08:09 Dose: 81 mg Diphtheria/Tetanus/Acell Pertussis (Boostrix) 0.5 ml IM .ONCE ONE Stop: 08/17/16 12:01 Enoxaparin Sodium (Lovenox) 40 mg SUBCUT DAILY [facility] Last Admin: 08/17/16 08:09 Dose: 40 mg Famotidine (Pepcid) 20 mg PO DAILY [facility] Fentanyl (Duragesic) 12 mcg TRDERM Q72H [facility] Last Admin: 08/15/16 12:25 Dose: 12 mcg Sodium Chloride (Normal Saline) 1,000 mls @ 70 mls/hr IV ASDIRECTED [facility] Last Admin: 08/17/16 07:08 Dose: 70 mls/hr Piperacillin Sod/Tazobactam (Sod 4.5 gm/ Sodium Chloride) 100 mls @ 25 mls/hr IV Q8H [facility] Last Admin: 08/17/16 09:44 Dose: 25 mls/hr Ibuprofen (Motrin) 600 mg PO Q8H PRN PRN Reason: Pain (moderate 4-6) Last Admin: 08/17/16 08:46 Dose: 600 mg Lidocaine (Lidoderm 5%) 700 mg TOP Q24H [facility] Magnesium Oxide (Magnesium Oxide) 400 mg PO DAILY [facility] Miscellaneous Information (Remove Patch) 1 ea TRDERM Q72H [facility] Last Admin: 08/15/16 12:29 Dose: 1 ea Pneumococcal Polyvalent Vaccine (Pneumovax 23) 0.5 ml IM .ONCE ONE Stop: 08/17/16 12:01 Quetiapine Fumarate (Seroquel) 25 mg PO BEDTIME [facility] Risperidone (Risperidal) 2 mg PO DAILY [facility] Last Admin: 08/17/16 08:09 Dose: 2 mg Senna/Docusate Sodium (Senna Plus) 1 tab PO QAM [facility] Last Admin: 08/17/16 08:09 Dose: 1 tab Discontinued Medications Acetaminophen (Tylenol Solution) 650 mg PO Q6H PRN PRN Reason: Fever Azithromycin (Zithromax) 500 mg PO DAILY ONE Stop: 08/15/16 18:58 Azithromycin (Zithromax) 500 mg PO DAILY ONE Stop: 08/14/16 18:58 Last Admin: 08/14/16 22:02 Dose: Not Given Azithromycin (Zithromax) 500 mg PO ONETIME ONE Stop: 08/14/16 20:36 Last Admin: 08/14/16 20:42 Dose: 500 mg Azithromycin (Zithromax) 500 mg PO DAILY ONE Stop: 08/14/16 22:01 Last Admin: 08/14/16 22:02 Dose: Not Given Enoxaparin Sodium (Lovenox) 30 mg SUBCUT DAILY [facility] Last Admin: 08/16/16 08:45 Dose: 30 mg Famotidine (Pepcid) 20 mg PO BID [facility] Last Admin: 08/17/16 08:46 Dose: 20 mg Fentanyl (Duragesic) 25 mcg TOP Q72H [facility] Last Admin: 08/14/16 22:11 Dose: 25 mcg Ceftriaxone Sodium 1 gm/ (Sodium Chloride) 100 mls @ 200 mls/hr IV ONETIME ONE Stop: 08/14/16 18:17 Last Admin: 08/14/16 17:59 Dose: 200 mls/hr Sodium Chloride (Normal Saline) 1,000 mls @ 999 mls/hr IV ONETIME ONE Stop: 08/14/16 18:53 Last Admin: 08/14/16 18:03 Dose: 999 mls/hr Piperacillin Sod/Tazobactam (Sod 4.5 gm/ Sodium Chloride) 100 mls @ 25 mls/hr IV Q8H [facility] Last Admin: 08/16/16 06:13 Dose: 25 mls/hr Piperacillin Sod/Tazobactam (Sod 4.5 gm/ Sodium Chloride) 100 mls @ 200 mls/hr IV ONETIME ONE Stop: 08/14/16 22:29 Last Admin: 08/14/16 22:03 Dose: 200 mls/hr Sodium Chloride (Normal Saline) 1,000 mls @ 125 mls/hr IV ASDIRECTED [facility] Last Admin: 08/15/16 05:37 Dose: 125 mls/hr Magnesium Sulfate 2 gm/ Premix 50 mls @ 25 mls/hr IV ONETIME ONE Stop: 08/15/16 13:09 Last Admin: 08/15/16 11:22 Dose: 25 mls/hr Miscellaneous Information (Remove Patch) 1 ea TRDERM Q72H [facility] Last Admin: 08/14/16 22:15 Dose: 1 ea Risperidone (Risperidal) 1 mg PO DAILY [facility] Last Admin: 08/15/16 09:12 Dose: 1 mg Risperidone (Risperidal) 1 mg PO ONETIME ONE Stop: 08/15/16 12:31 Last Admin: 08/15/16 13:52 Dose: 1 mg - Exam Quality Assessment: supplemental oxygen, DVT prophylaxis General: alert, cooperative, no acute distress HEENT: Pupils equal, Pupils reactive, EOMI, Mucous membr. moist/pink Neck: supple Lungs: Normal respiratory effort, Decreased breath sounds (bases), Rhonchi ( expiratory) Cardiovascular: Regular Rate, Regular Rhythm Abdomen: bowel sounds present, soft, no tenderness, no distension (Male) Exam: Deferred Extremities: no edema Neurological: no new focal deficit Psy/Mental Status: alert, other (confused- baseline dementia) - Problem List & Annotations (1) Pneumonia SNOMED Code(s): 327885904 Code(s): J18.9 - PNEUMONIA, UNSPECIFIED ORGANISM Status: Acute Priority: High Current Visit: Yes Qualifiers: Pneumonia type: due to unspecified organism Laterality: right Lung location: lower lobe of lung Qualified Code(s): J18.1 - Lobar pneumonia, unspecified organism (2) DEEPIKA (acute kidney injury) SNOMED Code(s): 99646951 Code(s): N17.9 - ACUTE KIDNEY FAILURE, UNSPECIFIED Status: Acute Priority : High Current Visit: Yes (3) CKD (chronic kidney disease) SNOMED Code(s): 804901773 Code(s): N18.9 - CHRONIC KIDNEY DISEASE, UNSPECIFIED Status: Chronic Priority: High Current Visit: Yes (4) Alzheimer's dementia SNOMED Code(s): 44731545 Code(s): G30.9 - ALZHEIMER'S DISEASE, UNSPECIFIED Status: Chronic Priority: Medium Current Visit: Yes (5) Cerebral aneurysm SNOMED Code(s): 986303824, 244722121 Code(s): I67.1 - CEREBRAL ANEURYSM, NONRUPTURED Status: Chronic Priority : Medium Current Visit: No (6) Schizophrenia SNOMED Code(s): 95849086 Code(s): F20.9 - SCHIZOPHRENIA, UNSPECIFIED Status: Chronic Priority: Medium Current Visit: Yes - Problem List Review Problem List Initiated/Reviewed/Updated: Yes - My Orders Last 24 Hours: My Active Orders 08/17/16 08:06 OT Evaluation and Treatment [CONS] Routine PT Evaluation and Treatment [CONS] Routine 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 Treatment [CONS] Routine 08/17/16 11:30 Magnesium Oxide 400 mg PO DAILY 08/17/16 11:45 Lidocaine 5% [Lidoderm 5%] 700 mg TOP Q24H 08/17/16 21:00 QUEtiapine [SEROquel] 25 mg PO BEDTIME 08/18/16 08:01 CRP [C-REACTIVE PROTEIN] [CHEM] DAILY 08/18/16 09:00 Famotidine [Pepcid] 20 mg PO DAILY 08/19/16 08:01 CRP [C-REACTIVE PROTEIN] [CHEM] DAILY 08/20/16 08:01 CRP [C-REACTIVE PROTEIN] [CHEM] DAILY 08/21/16 08:01 CRP [C-REACTIVE PROTEIN] [CHEM] DAILY - Plan Plan:: Impression: RLL Pneumonia -Query Asp PNA cf HCAP -Good response to Zosyn- continue -Repeat CXR, unchanged AMS, resolved -with baseline Alzheimer dementia/schizophrenia and Anxiety Acute on chronic kidney disease--improved -Hydrated, acute injury resolved Chronic History of Cerebral Aneurysm s/p clipping DVT Plan: IVF--can DC as is taking in PO now Daily labs Home meds IV ATBs Nebs scheduled and prn SW/PT/OT DVT/GI prophylaxis DC plan: plan for discharge back to [facility] tomorrow on oral antibiotic. <Shivani Waite - Last Filed: 08/17/16 16:44> - Patient Data Vitals - most recent: Last Vital Signs Temp 36.5 C 08/17/16 15:20 Pulse 63 08/17/16 15:20 Resp 12 08/17/16 15:20 BP 139/69 08/17/16 15:20 Pulse Ox 97 08/17/16 15:20 I&O - last 24 hours: Intake & Output 08/17/16 08/17/16 08/17/16 06:59 14:59 22:59 Intake Total 1033 0 Output Total 450 Balance 1033 0 -450 Lab Results last 24 hrs: Laboratory Results - last 24 hr 08/17/16 08/17/16 08/17/16 Range/Units 06:31 06:31 06:31 WBC 6.89 (4.23-9.07) K/mm3 RBC 3.66 L (4.63-6.08) M/mm3 Hgb 11.8 L (13.7-17.5) gm/L Hct 36.2 L (40.1-51.0) % MCV 98.9 H (79.0-92.2) fl MCH 32.2 (25.7-32.2) pg MCHC 32.6 (32.2-35.5) g/dl RDW Std Deviation 45.5 H (35.1-43.9) fL Plt Count 184 (163-337) K/mm3 MPV 10.1 (9.4-12.3) fl Neut % (Auto) 81.0 H (34.0-67.9) % Lymph % (Auto) 13.1 L (21.8-53.1) % [place] % (Auto) 5.1 L (5.3-12.2) % Eos % (Auto) 0.6 L (0.8-7.0) Baso % (Auto) 0.1 (0.1-1.2) % Neut # (Auto) 5.58 H (1.78-5.38) K/mm3 Lymph # (Auto) 0.90 L (1.32-3.57) K/mm3 [place] # (Auto) 0.35 (0.30-0.82) K/mm3 Eos # (Auto) 0.04 (0.04-0.54) K/mm3 Baso # (Auto) 0.01 (0.01-0.08) K/mm3 Sodium 143 (136-145) mEq/L Potassium 3.7 (3.5-5.1) mEq/L Chloride 107 (98-107) mEq/L Carbon Dioxide 25 (21-32) mEq/L Anion Gap 14.7 (5-15) BUN 9 (7-18) mg/dL Creatinine 1.2 (0.7-1.3) mg/dL Est Cr Clr Drug Dosing 38.10 mL/min Estimated GFR (MDRD) > 60 (>60) mL/min BUN/Creatinine Ratio 7.5 L (14-18) Glucose 78 L (80-115) mg/dL Lactic Acid 1.3 (0.4-2.0) mmol/L Calcium 9.2 (8.5-10.1) mg/dL Magnesium 1.6 L (1.8-2.4) mg/dl C-Reactive Protein (<1.0) mg/dL 06/26/17 Range/Units 06:31 WBC (4.23-9.07) K/mm3 RBC (4.63-6.08) M/mm3 Hgb (13.7-17.5) gm/L Hct (40.1-51.0) % MCV (79.0-92.2) fl MCH (25.7-32.2) pg MCHC (32.2-35.5) g/dl RDW Std Deviation (35.1-43.9) fL Plt Count (163-337) K/mm3 MPV (9.4-12.3) fl Neut % (Auto) (34.0-67.9) % Lymph % (Auto) (21.8-53.1) % [place] % (Auto) (5.3-12.2) % Eos % (Auto) (0.8-7.0) Baso % (Auto) (0.1-1.2) % Neut # (Auto) (1.78-5.38) K/mm3 Lymph # (Auto) (1.32-3.57) K/mm3 [place] # (Auto) (0.30-0.82) K/mm3 Eos # (Auto) (0.04-0.54) K/mm3 Baso # (Auto) (0.01-0.08) K/mm3 Sodium (136-145) mEq/L Potassium (3.5-5.1) mEq/L Chloride (98-107) mEq/L Carbon Dioxide (21-32) mEq/L Anion Gap (5-15) BUN (7-18) mg/dL Creatinine (0.7-1.3) mg/dL Est Cr Clr Drug Dosing mL/min Estimated GFR (MDRD) (>60) mL/min BUN/Creatinine Ratio (14-18) Glucose (80-115) mg/dL Lactic Acid (0.4-2.0) mmol/L Calcium (8.5-10.1) mg/dL Magnesium (1.8-2.4) mg/dl C-Reactive Protein 10.9 H* (<1.0) mg/dL Med Orders - Current: Current Medications Acetaminophen (Tylenol) 650 mg PO Q6H PRN PRN Reason: Fever Last Admin: 08/17/16 13:15 Dose: 650 mg Albuterol (Proventil Neb Soln) 2.5 mg NEB Q4HRRT PRN PRN Reason: Shortness of Breath Albuterol/Ipratropium (Duoneb 3.0-0.5 Mg/3 Ml) 3 ml NEB QID PRN PRN Reason: Shortness of Breath Aspirin (Aspirin) 81 mg PO DAILY [facility] Last Admin: 08/17/16 08:09 Dose: 81 mg Enoxaparin Sodium (Lovenox) 40 mg SUBCUT DAILY [facility] Last Admin: 08/17/16 08:09 Dose: 40 mg Famotidine (Pepcid) 20 mg PO DAILY [facility] Fentanyl (Duragesic) 12 mcg TRDERM Q72H [facility] Last Admin: 08/15/16 12:25 Dose: 12 mcg Piperacillin Sod/Tazobactam (Sod 4.5 gm/ Sodium Chloride) 100 mls @ 25 mls/hr IV Q8H [facility] Last Admin: 08/17/16 09:44 Dose: 25 mls/hr Ibuprofen (Motrin) 600 mg PO Q8H PRN PRN Reason: Pain (moderate 4-6) Last Admin: 08/17/16 15:15 Dose: 600 mg Lidocaine (Lidoderm 5%) 700 mg TOP Q24H [facility] Last Admin: 08/17/16 12:15 Dose: 700 mg Magnesium Oxide (Magnesium Oxide) 400 mg PO DAILY [facility] Last Admin: 08/17/16 12:14 Dose: 400 mg Miscellaneous Information (Remove Patch) 1 ea TRDERM Q72H [facility] Last Admin: 08/15/16 12:29 Dose: 1 ea Miscellaneous Information (Remove Patch) 0 ea TRDERM Q24H [facility] Quetiapine Fumarate (Seroquel) 25 mg PO BEDTIME [facility] Risperidone (Risperidal) 2 mg PO DAILY [facility] Last Admin: 08/17/16 08:09 Dose: 2 mg Senna/Docusate Sodium (Senna Plus) 1 tab PO QAM [facility] Last Admin: 08/17/16 08:09 Dose: 1 tab Discontinued Medications Acetaminophen (Tylenol Solution) 650 mg PO Q6H PRN PRN Reason: Fever Azithromycin (Zithromax) 500 mg PO DAILY ONE Stop: 08/15/16 18:58 Azithromycin (Zithromax) 500 mg PO DAILY ONE Stop: 08/14/16 18:58 Last Admin: 08/14/16 22:02 Dose: Not Given Azithromycin (Zithromax) 500 mg PO ONETIME ONE Stop: 08/14/16 20:36 Last Admin: 08/14/16 20:42 Dose: 500 mg Azithromycin (Zithromax) 500 mg PO DAILY ONE Stop: 08/14/16 22:01 Last Admin: 08/14/16 22:02 Dose: Not Given Diphtheria/Tetanus/Acell Pertussis (Boostrix) 0.5 ml IM .ONCE ONE Stop: 08/17/16 12:01 Enoxaparin Sodium (Lovenox) 30 mg SUBCUT DAILY [facility] Last Admin: 08/16/16 08:45 Dose: 30 mg Famotidine (Pepcid) 20 mg PO BID [facility] Last Admin: 08/17/16 08:46 Dose: 20 mg Fentanyl (Duragesic) 25 mcg TOP Q72H [facility] Last Admin: 08/14/16 22:11 Dose: 25 mcg Ceftriaxone Sodium 1 gm/ (Sodium Chloride) 100 mls @ 200 mls/hr IV ONETIME ONE Stop: 08/14/16 18:17 Last Admin: 08/14/16 17:59 Dose: 200 mls/hr Sodium Chloride (Normal Saline) 1,000 mls @ 999 mls/hr IV ONETIME ONE Stop: 08/14/16 18:53 Last Admin: 08/14/16 18:03 Dose: 999 mls/hr Piperacillin Sod/Tazobactam (Sod 4.5 gm/ Sodium Chloride) 100 mls @ 25 mls/hr IV Q8H [facility] Last Admin: 08/16/16 06:13 Dose: 25 mls/hr Piperacillin Sod/Tazobactam (Sod 4.5 gm/ Sodium Chloride) 100 mls @ 200 mls/hr IV ONETIME ONE Stop: 08/14/16 22:29 Last Admin: 08/14/16 22:03 Dose: 200 mls/hr Sodium Chloride (Normal Saline) 1,000 mls @ 125 mls/hr IV ASDIRECTED [facility] Last Admin: 08/15/16 05:37 Dose: 125 mls/hr Magnesium Sulfate 2 gm/ Premix 50 mls @ 25 mls/hr IV ONETIME ONE Stop: 08/15/16 13:09 Last Admin: 08/15/16 11:22 Dose: 25 mls/hr Sodium Chloride (Normal Saline) 1,000 mls @ 70 mls/hr IV ASDIRECTED [facility] Last Admin: 08/17/16 07:08 Dose: 70 mls/hr Miscellaneous Information (Remove Patch) 1 ea TRDERM Q72H [facility] Last Admin: 08/14/16 22:15 Dose: 1 ea Pneumococcal Polyvalent Vaccine (Pneumovax 23) 0.5 ml IM .ONCE ONE Stop: 08/17/16 12:01 Risperidone (Risperidal) 1 mg PO DAILY [facility] Last Admin: 08/15/16 09:12 Dose: 1 mg Risperidone (Risperidal) 1 mg PO ONETIME ONE Stop: 08/15/16 12:31 Last Admin: 08/15/16 13:52 Dose: 1 mg - Problem List & Annotations (1) CKD (chronic kidney disease) SNOMED Code(s): 056851871 Code(s): N18.9 - CHRONIC KIDNEY DISEASE, UNSPECIFIED Status: Chronic Priority: High Current Visit: Yes (2) Alzheimer's dementia SNOMED Code(s): 86103870 Code(s): G30.9 - ALZHEIMER'S DISEASE, UNSPECIFIED Status: Chronic Priority: Medium Current Visit: Yes (3) Schizophrenia SNOMED Code(s): 19371143 Code(s): F20.9 - SCHIZOPHRENIA, UNSPECIFIED Status: Chronic Priority: Medium Current Visit: Yes (4) Cerebral aneurysm SNOMED Code(s): 444686690, 901917704 Code(s): I67.1 - CEREBRAL ANEURYSM, NONRUPTURED Status: Chronic Priority : Medium Current Visit: No (5) DEEPIKA (acute kidney injury) SNOMED Code(s): 76689227 Code(s): N17.9 - ACUTE KIDNEY FAILURE, UNSPECIFIED Status: Acute Priority : High Current Visit: Yes (6) Pneumonia SNOMED Code(s): 712472056 Code(s): J18.9 - PNEUMONIA, UNSPECIFIED ORGANISM Status: Acute Priority: High Current Visit: Yes Qualifiers: Pneumonia type: due to unspecified organism Laterality: right Lung location: lower lobe of lung Qualified Code(s): J18.1 - Lobar pneumonia, unspecified organism - My Orders Last 24 Hours: My Active Orders 08/16/16 18:30 Piperacillin/Tazobactam [Zosyn] 4.5 gm Sodium Chloride 0.9% [Normal Saline] 100 ml IV Q8H 08/16/16 Dinner Regular Diet [DIET] 08/17/16 09:00 Enoxaparin [Lovenox] 40 mg SUBCUT DAILY 08/17/16 11:14 Vaccines to be Administered [RC] PER UNIT ROUTINE 08/18/16 05:00 BMP [BASIC METABOLIC PANEL,BMP] [CHEM] DAILY CBC WITH AUTO DIFF [HEME] DAILY MAGNESIUM [CHEM] DAILY 08/18/16 12:00 Remove Patch 1 ea TRDERM Q72H 08/19/16 05:00 BMP [BASIC METABOLIC PANEL,BMP] [CHEM] DAILY CBC WITH AUTO DIFF [HEME] DAILY - Plan Plan:: DC tomorrow expected, will confirm in the AM.
[2016-08-17] MEDS ORDERED: Pneumococcal Polyvalent-23 Vaccine 0.5 ML SDV IM ONE (12:00)
[2016-08-17] MEDS ORDERED: Diphtheria,Pertussis(Acell),Tetanus Vaccine 0.5 ML SDV inactive IM ONE (12:00)
[2016-08-17] MEDS: Magnesium Oxide 400 MG Tab PO SCH (12:14)
[2016-08-17] MEDS: Lidocaine 5% 700 MG Patch TOP SCH (12:15)
[2016-08-17] MEDS: Acetaminophen 325 MG Tab PO PRN ×2 (13:15→18:08)
[2016-08-17] MEDS ORDERED: QUEtiapine 25 MG Tab PO SCH (21:00)
[2016-08-18] MEDS: Piperacillin/Tazobactam 4.5 GM in Sodium Chloride 0.9% 100 ML IV SCH ×3 (02:33→10:21)
--- NOTE | 2016-08-18 07:34 | PCM.DCSUM1 ---
<Tanika Hare - Last Filed: 08/18/16 07:36> Discharge Summary - Hospital Course Free Text/Narrative:: 66 year old male with a history Alzheimer Dementia presents to ER from [place] febrile and with altered mental status. He has had a CXR which suggest RLL infiltrate, labs document an acute infection. He will be admitted to [facility]. IV ATBs have been started in the ED. The history is via review of the EMR and provider due to his dementia and AMS, his primary complaint was mental status change and an elevated temperature was noted by the SNF staff. Patient was treated with IV abx, zosyn with good response, improvement- resolution of elevated WBC and CRP. Negative resp viral panel and mycoplasma, negative blood cultures. Altered mental status slowly improved, he was more restless, risperdal was increased and seroquel added at bedtime with improvements noted. PT/OT worked with him with recommendations to continue with therapies at [place]. Repeat CXR was unchanged, no worsening of RLL PNA. He will be discharged back to [facility] today on oral abx, augmentin x 10 days with probiotic, DuoNeb QID PRN. He should follow up with PCP within one week of discharge, recommend repeat CXR in 2 weeks to assure resolution of RLL pneumonia. - Discharge Data Discharge Date: 08/18/16 (admit date 08/14/16) Discharge Disposition: DC/Tfer to [facility] 61 Condition: Good - Discharge Diagnosis/Problem(s) (1) Pneumonia SNOMED Code(s): 923483309 ICD Code: J18.9 - PNEUMONIA, UNSPECIFIED ORGANISM Status: Acute Priority : High Qualifiers: Pneumonia type: due to unspecified organism Laterality: right Lung location: lower lobe of lung Qualified Code(s): J18.1 - Lobar pneumonia, unspecified organism (2) DEEPIKA (acute kidney injury) SNOMED Code(s): 56420454 ICD Code: N17.9 - ACUTE KIDNEY FAILURE, UNSPECIFIED Status: Resolved Priority: High (3) CKD (chronic kidney disease) SNOMED Code(s): 379871453 ICD Code: N18.9 - CHRONIC KIDNEY DISEASE, UNSPECIFIED Status: Chronic Priority: High (4) Alzheimer's dementia SNOMED Code(s): 95040143 ICD Code: G30.9 - ALZHEIMER'S DISEASE, UNSPECIFIED Status: Chronic Priority: Medium (5) Cerebral aneurysm SNOMED Code(s): 125511769, 990074752 ICD Code: I67.1 - CEREBRAL ANEURYSM, NONRUPTURED Status: Chronic Priority : Medium (6) Schizophrenia SNOMED Code(s): 34656656 ICD Code: F20.9 - SCHIZOPHRENIA, UNSPECIFIED Status: Chronic Priority: Medium - Patient Summary/Data Operative Procedure(s) Performed: None Complications: None Consults: Consultations 08/17/16 08:06 OT Evaluation and Treatment [CONS] Routine PT Evaluation and Treatment [CONS] Routine ELECTR[employer] APPLIANCE MECHANIC Evaluation and Treatment [CONS] Routine Labs Pending at D/C: None Recommended Follow-up Testing/Procedures: Fup with PCP within one week; repeat CXR in 2 weeks Planned Operative Procedure(s) after DC: None Hospital Course: As above - Patient Instructions Diet: Usual Diet as Tolerated Activity: As Tolerated (PT/OT to continue) Driving: Do Not Drive Showering/Bathing: May Shower Notify Provider of: Fever, Increased Pain, Nausea and/or Vomiting (cough, wheezing, shortness of breath) - Discharge Plan Prescriptions/Med Rec: Amoxicillin/Clavulanate K [Augmentin 875 MG/125 MG] 1 tab PO Q12HR #20 tablet Albuterol/Ipratropium [DuoNeb 3.0-0.5 MG/3 ML] 3 ml NEB QID PRN #1 box PRN Reason: SOB/wheezing Bifidobacter. Bifidum/B.Longum [Florajen Bifidoblend] 460 mg PO BID #20 capsule Famotidine [Pepcid] 20 mg PO DAILY #30 tablet Lidocaine 5% [Lidoderm 5%] 700 mg TOP Q24H #30 patch Magnesium Oxide 400 mg PO DAILY #30 tablet QUEtiapine [SEROquel] 25 mg PO BEDTIME #30 tablet risperiDONE [RisperiDAL] 2 mg PO DAILY #30 tablet Home Medications: Home Meds Acetaminophen [Tylenol] 650 mg PO Q4H PRN 05/26/16 [History] Ascorbate Calcium [Vitamin C] 500 mg PO TID 05/26/16 [History] Aspirin 81 mg PO DAILY 05/26/16 [History] Magnesium Hydroxide [Milk of Magnesia] 30 ml PO DAILY PRN 05/26/16 [History] fentaNYL [Duragesic] 12 mcg TOP Q72H 05/26/16 [History] Sennosides/Docusate Sodium [Senna-Docusate Sodium] 1 tab PO QAM 08/14/16 [ History] Silver Sulfadiazine [Silvadene 1% Cream 20 GM] 1 TOP BID 08/15/16 [History] Albuterol/Ipratropium [DuoNeb 3.0-0.5 MG/3 ML] 3 ml NEB QID PRN #1 box 08/18/16 [Rx] Amoxicillin/Clavulanate K [Augmentin 875 MG/125 MG] 1 tab PO Q12HR #20 tablet [Rx] Bifidobacter. Bifidum/B.Longum [Florajen Bifidoblend] 460 mg PO BID #20 capsule 08/18/16 [Rx] Famotidine [Pepcid] 20 mg PO DAILY #30 tablet 08/18/16 [Rx] Lidocaine 5% [Lidoderm 5%] 700 mg TOP Q24H #30 patch 08/18/16 [Rx] Magnesium Oxide 400 mg PO DAILY #30 tablet 08/18/16 [Rx] QUEtiapine [SEROquel] 25 mg PO BEDTIME #30 tablet 08/18/16 [Rx] risperiDONE [RisperiDAL] 2 mg PO DAILY #30 tablet 08/18/16 [Rx] Patient Handouts: Alzheimer Disease, Dementia, Community-Acquired Pneumonia, Adult, [id number] Forms: ED Department Discharge Referrals: Eze Steve MD [Primary Care Provider] - - Discharge Summary/Plan Comment DC Time >30 min.: Yes (40 min) - General Info Date of Service: 08/18/16 Admission Dx/Problem (Free Text: Admission Diagnosis/Problem Admission Diagnosis/Problem Pneumonia Functional Status: Reports: pain controlled, tolerating diet, ambulating, urinating. Denies: new symptoms - Review of Systems General: Reports: No Symptoms, Weakness (improved ) HEENT: Reports: no symptoms Pulmonary: Reports: cough (improved) Cardiovascular: Reports: No Symptoms Gastrointestinal: Reports: No symptoms Musculoskeletal: Reports: shoulder pain (bilat) Neurological: Reports: Confusion Psychiatric: Reports: confusion - Patient Data Vitals - Most Recent: Last Vital Signs Temp 97.3 F 08/18/16 03:40 Pulse 72 08/18/16 03:40 Resp 16 08/18/16 03:40 BP 128/87 08/18/16 03:40 Pulse Ox 96 08/18/16 03:40 Weight - Most Recent: 45.994 kg I&O - Last 24 hours: Intake & Output 08/17/16 08/18/16 08/18/16 22:59 06:59 14:59 Intake Total 770 700 Output Total 450 Balance 320 700 Lab Results - Last 24 hrs: Laboratory Results - last 24 hr 08/17/16 08/18/16 Range/Units 06:31 06:50 WBC 5.72 (4.23-9.07) K/mm3 RBC 2.96 L (4.63-6.08) M/mm3 Hgb 9.4 L (13.7-17.5) gm/L Hct 29.1 L (40.1-51.0) % MCV 98.3 H (79.0-92.2) fl MCH 31.8 (25.7-32.2) pg MCHC 32.3 (32.2-35.5) g/dl RDW Std Deviation 45.3 H (35.1-43.9) fL Plt Count 224 (163-337) K/mm3 MPV 9.7 (9.4-12.3) fl Neut % (Auto) 74.5 H (34.0-67.9) % Lymph % (Auto) 17.5 L (21.8-53.1) % [place] % (Auto) 6.8 (5.3-12.2) % Eos % (Auto) 0.7 L (0.8-7.0) Baso % (Auto) 0.2 (0.1-1.2) % Neut # (Auto) 4.26 (1.78-5.38) K/mm3 Lymph # (Auto) 1.00 L (1.32-3.57) K/mm3 [place] # (Auto) 0.39 (0.30-0.82) K/mm3 Eos # (Auto) 0.04 (0.04-0.54) K/mm3 Baso # (Auto) 0.01 (0.01-0.08) K/mm3 C-Reactive Protein 10.9 H* (<1.0) mg/dL SKIP Results - Last 24 hrs: Microbiology 08/14/16 22:20 Respiratory Virus Panel (PCR) (SKIP) - Final Nasopharyngeal Swab Med Orders - Current: Current Medications Acetaminophen (Tylenol) 650 mg PO Q6H PRN PRN Reason: Fever Last Admin: 08/17/16 18:08 Dose: 650 mg Albuterol (Proventil Neb Soln) 2.5 mg NEB Q4HRRT PRN PRN Reason: Shortness of Breath Albuterol/Ipratropium (Duoneb 3.0-0.5 Mg/3 Ml) 3 ml NEB QID PRN PRN Reason: Shortness of Breath Aspirin (Aspirin) 81 mg PO DAILY [facility] Last Admin: 08/17/16 08:09 Dose: 81 mg Enoxaparin Sodium (Lovenox) 40 mg SUBCUT DAILY [facility] Last Admin: 08/17/16 08:09 Dose: 40 mg Famotidine (Pepcid) 20 mg PO DAILY [facility] Fentanyl (Duragesic) 12 mcg TRDERM Q72H [facility] Last Admin: 08/15/16 12:25 Dose: 12 mcg Piperacillin Sod/Tazobactam (Sod 4.5 gm/ Sodium Chloride) 100 mls @ 25 mls/hr IV Q8H [facility] Last Admin: 08/18/16 02:33 Dose: 25 mls/hr Ibuprofen (Motrin) 600 mg PO Q8H PRN PRN Reason: Pain (moderate 4-6) Last Admin: 08/17/16 15:15 Dose: 600 mg Lidocaine (Lidoderm 5%) 700 mg TOP Q24H [facility] Last Admin: 08/17/16 12:15 Dose: 700 mg Magnesium Oxide (Magnesium Oxide) 400 mg PO DAILY [facility] Last Admin: 08/17/16 12:14 Dose: 400 mg Miscellaneous Information (Remove Patch) 1 ea TRDERM Q72H [facility] Last Admin: 08/15/16 12:29 Dose: 1 ea Miscellaneous Information (Remove Patch) 0 ea TRDERM Q24H [facility] Last Admin: 08/17/16 23:30 Dose: 1 ea Quetiapine Fumarate (Seroquel) 25 mg PO BEDTIME [facility] Last Admin: 08/17/16 20:45 Dose: 25 mg Risperidone (Risperidal) 2 mg PO DAILY [facility] Last Admin: 08/17/16 08:09 Dose: 2 mg Senna/Docusate Sodium (Senna Plus) 1 tab PO QAM [facility] Last Admin: 08/17/16 08:09 Dose: 1 tab Discontinued Medications Acetaminophen (Tylenol Solution) 650 mg PO Q6H PRN PRN Reason: Fever Azithromycin (Zithromax) 500 mg PO DAILY ONE Stop: 08/15/16 18:58 Azithromycin (Zithromax) 500 mg PO DAILY ONE Stop: 08/14/16 18:58 Last Admin: 08/14/16 22:02 Dose: Not Given Azithromycin (Zithromax) 500 mg PO ONETIME ONE Stop: 08/14/16 20:36 Last Admin: 08/14/16 20:42 Dose: 500 mg Azithromycin (Zithromax) 500 mg PO DAILY ONE Stop: 08/14/16 22:01 Last Admin: 08/14/16 22:02 Dose: Not Given Diphtheria/Tetanus/Acell Pertussis (Boostrix) 0.5 ml IM .ONCE ONE Stop: 08/17/16 12:01 Enoxaparin Sodium (Lovenox) 30 mg SUBCUT DAILY [facility] Last Admin: 08/16/16 08:45 Dose: 30 mg Famotidine (Pepcid) 20 mg PO BID [facility] Last Admin: 08/17/16 08:46 Dose: 20 mg Fentanyl (Duragesic) 25 mcg TOP Q72H [facility] Last Admin: 08/14/16 22:11 Dose: 25 mcg Ceftriaxone Sodium 1 gm/ (Sodium Chloride) 100 mls @ 200 mls/hr IV ONETIME ONE Stop: 08/14/16 18:17 Last Admin: 08/14/16 17:59 Dose: 200 mls/hr Sodium Chloride (Normal Saline) 1,000 mls @ 999 mls/hr IV ONETIME ONE Stop: 08/14/16 18:53 Last Admin: 08/14/16 18:03 Dose: 999 mls/hr Piperacillin Sod/Tazobactam (Sod 4.5 gm/ Sodium Chloride) 100 mls @ 25 mls/hr IV Q8H [facility] Last Admin: 08/16/16 06:13 Dose: 25 mls/hr Piperacillin Sod/Tazobactam (Sod 4.5 gm/ Sodium Chloride) 100 mls @ 200 mls/hr IV ONETIME ONE Stop: 08/14/16 22:29 Last Admin: 08/14/16 22:03 Dose: 200 mls/hr Sodium Chloride (Normal Saline) 1,000 mls @ 125 mls/hr IV ASDIRECTED [facility] Last Admin: 08/15/16 05:37 Dose: 125 mls/hr Magnesium Sulfate 2 gm/ Premix 50 mls @ 25 mls/hr IV ONETIME ONE Stop: 08/15/16 13:09 Last Admin: 08/15/16 11:22 Dose: 25 mls/hr Sodium Chloride (Normal Saline) 1,000 mls @ 70 mls/hr IV ASDIRECTED [facility] Last Admin: 08/17/16 07:08 Dose: 70 mls/hr Miscellaneous Information (Remove Patch) 1 ea TRDERM Q72H [facility] Last Admin: 08/14/16 22:15 Dose: 1 ea Pneumococcal Polyvalent Vaccine (Pneumovax 23) 0.5 ml IM .ONCE ONE Stop: 08/17/16 12:01 Risperidone (Risperidal) 1 mg PO DAILY [facility] Last Admin: 08/15/16 09:12 Dose: 1 mg Risperidone (Risperidal) 1 mg PO ONETIME ONE Stop: 08/15/16 12:31 Last Admin: 08/15/16 13:52 Dose: 1 mg - Exam Quality Assessment: Reports: DVT prophylaxis General: Reports: alert, oriented, cooperative, no acute distress HEENT: Reports: Pupils equal, Pupils reactive, EOMI, Mucous membr. moist/pink Neck: Reports: supple Lungs: Reports: Normal respiratory effort, Decreased breath sounds, Wheezing ( scattered with expiration) Cardiovascular: Reports: Regular Rate, Regular Rhythm Abdomen: Reports: bowel sounds present, soft, no tenderness, no distension (Male) Exam: Deferred Rectal (Males) Exam: Deferred Extremities: Reports: no edema Neurological: Reports: no new focal deficit Psy/Mental Status: Reports: alert, other (confused but pleasant) *Q Meaningful Use (DIS) - VTE *Q VTE Criteria *Q: - Stroke *Q Stroke Criteria *Q: - AMI *Q AMI Criteria *Q: <Shivani Waite - Last Filed: 08/18/16 13:42> Discharge Summary - Hospital Course Free Text/Narrative:: DC aafter Rx for PNA. - Discharge Diagnosis/Problem(s) (1) CKD (chronic kidney disease) SNOMED Code(s): 494892177 ICD Code: N18.9 - CHRONIC KIDNEY DISEASE, UNSPECIFIED Status: Chronic Priority: High (2) Alzheimer's dementia SNOMED Code(s): 57140645 ICD Code: G30.9 - ALZHEIMER'S DISEASE, UNSPECIFIED Status: Chronic Priority: Medium (3) Schizophrenia SNOMED Code(s): 35054618 ICD Code: F20.9 - SCHIZOPHRENIA, UNSPECIFIED Status: Chronic Priority: Medium (4) Cerebral aneurysm SNOMED Code(s): 009895616, 084903611 ICD Code: I67.1 - CEREBRAL ANEURYSM, NONRUPTURED Status: Chronic Priority : Medium (5) DEEPIKA (acute kidney injury) SNOMED Code(s): 04401178 ICD Code: N17.9 - ACUTE KIDNEY FAILURE, UNSPECIFIED Status: Resolved Priority: High (6) Pneumonia SNOMED Code(s): 894297697 ICD Code: J18.9 - PNEUMONIA, UNSPECIFIED ORGANISM Status: Acute Priority : High Qualifiers: Pneumonia type: due to unspecified organism Laterality: right Lung location: lower lobe of lung Qualified Code(s): J18.1 - Lobar pneumonia, unspecified organism - Patient Summary/Data Consults: Consultations 08/17/16 08:06 OT Evaluation and Treatment [CONS] Routine PT Evaluation and Treatment [CONS] Routine ELECT[employer]PLIANCE MECHANIC Evaluation and Treatment [CONS] Routine - Patient Data Vitals - Most Recent: Last Vital Signs Temp 36.9 C 08/18/16 11:23 Pulse 71 08/18/16 11:23 Resp 16 08/18/16 11:23 BP 124/76 08/18/16 11:23 Pulse Ox 95 08/18/16 11:23 I&O - Last 24 hours: Intake & Output 08/17/16 08/18/16 08/18/16 22:59 06:59 14:59 Intake Total 770 700 480 Output Total 450 Balance 320 700 480 Lab Results - Last 24 hrs: Laboratory Results - last 24 hr 08/18/16 08/18/16 08/18/16 Range/Units 06:50 06:50 06:50 WBC 5.72 (4.23-9.07) K/mm3 RBC 2.96 L (4.63-6.08) M/mm3 Hgb 9.4 L (13.7-17.5) gm/L Hct 29.1 L (40.1-51.0) % MCV 98.3 H (79.0-92.2) fl MCH 31.8 (25.7-32.2) pg MCHC 32.3 (32.2-35.5) g/dl RDW Std Deviation 45.3 H (35.1-43.9) fL Plt Count 224 (163-337) K/mm3 MPV 9.7 (9.4-12.3) fl Neut % (Auto) 74.5 H (34.0-67.9) % Lymph % (Auto) 17.5 L (21.8-53.1) % [place] % (Auto) 6.8 (5.3-12.2) % Eos % (Auto) 0.7 L (0.8-7.0) Baso % (Auto) 0.2 (0.1-1.2) % Neut # (Auto) 4.26 (1.78-5.38) K/mm3 Lymph # (Auto) 1.00 L (1.32-3.57) K/mm3 [place] # (Auto) 0.39 (0.30-0.82) K/mm3 Eos # (Auto) 0.04 (0.04-0.54) K/mm3 Baso # (Auto) 0.01 (0.01-0.08) K/mm3 Sodium 145 (136-145) mEq/L Potassium 3.3 L (3.5-5.1) mEq/L Chloride 110 H (98-107) mEq/L Carbon Dioxide 23 (21-32) mEq/L Anion Gap 15.3 H (5-15) BUN 9 (7-18) mg/dL Creatinine 1.2 (0.7-1.3) mg/dL Est Cr Clr Drug Dosing 38.33 mL/min Estimated GFR (MDRD) > 60 (>60) mL/min BUN/Creatinine Ratio 7.5 L (14-18) Glucose 91 (80-115) mg/dL Calcium 9.2 (8.5-10.1) mg/dL Magnesium 1.7 L (1.8-2.4) mg/dl C-Reactive Protein 5.1 H* (<1.0) mg/dL SKIP Results - Last 24 hrs: Microbiology 08/15/16 09:35 Streptococcus pneumoniae Antigen (M - Final Urine 08/14/16 22:20 Respiratory Virus Panel (PCR) (SKIP) - Final Nasopharyngeal Swab Med Orders - Current: Current Medications Discontinued Medications Acetaminophen (Tylenol Solution) 650 mg PO Q6H PRN PRN Reason: Fever Acetaminophen (Tylenol) 650 mg PO Q6H PRN PRN Reason: Fever Last Admin: 08/17/16 18:08 Dose: 650 mg Albuterol (Proventil Neb Soln) 2.5 mg NEB Q4HRRT PRN PRN Reason: Shortness of Breath Albuterol/Ipratropium (Duoneb 3.0-0.5 Mg/3 Ml) 3 ml NEB QID PRN PRN Reason: Shortness of Breath Aspirin (Aspirin) 81 mg PO DAILY [facility] Last Admin: 08/18/16 08:50 Dose: 81 mg Azithromycin (Zithromax) 500 mg PO DAILY ONE Stop: 08/15/16 18:58 Azithromycin (Zithromax) 500 mg PO DAILY ONE Stop: 08/14/16 18:58 Last Admin: 08/14/16 22:02 Dose: Not Given Azithromycin (Zithromax) 500 mg PO ONETIME ONE Stop: 08/14/16 20:36 Last Admin: 08/14/16 20:42 Dose: 500 mg Azithromycin (Zithromax) 500 mg PO DAILY ONE Stop: 08/14/16 22:01 Last Admin: 08/14/16 22:02 Dose: Not Given Diphtheria/Tetanus/Acell Pertussis (Boostrix) 0.5 ml IM .ONCE ONE Stop: 08/17/16 12:01 Last Admin: 08/18/16 09:04 Dose: Not Given Diphtheria/Tetanus/Acell Pertussis (Adacel) 0.5 ml IM .ONCE ONE Stop: 08/18/16 09:31 Last Admin: 08/18/16 09:04 Dose: Not Given Enoxaparin Sodium (Lovenox) 30 mg SUBCUT DAILY [facility] Last Admin: 08/16/16 08:45 Dose: 30 mg Enoxaparin Sodium (Lovenox) 40 mg SUBCUT DAILY [facility] Last Admin: 08/18/16 08:51 Dose: 40 mg Famotidine (Pepcid) 20 mg PO BID [facility] Last Admin: 08/17/16 08:46 Dose: 20 mg Famotidine (Pepcid) 20 mg PO DAILY [facility] Last Admin: 08/18/16 08:50 Dose: 20 mg Fentanyl (Duragesic) 25 mcg TOP Q72H [facility] Last Admin: 08/14/16 22:11 Dose: 25 mcg Fentanyl (Duragesic) 12 mcg TRDERM Q72H [facility] Last Admin: 08/18/16 11:07 Dose: 12 mcg Ceftriaxone Sodium 1 gm/ (Sodium Chloride) 100 mls @ 200 mls/hr IV ONETIME ONE Stop: 08/14/16 18:17 Last Admin: 08/14/16 17:59 Dose: 200 mls/hr Sodium Chloride (Normal Saline) 1,000 mls @ 999 mls/hr IV ONETIME ONE Stop: 08/14/16 18:53 Last Admin: 08/14/16 18:03 Dose: 999 mls/hr Piperacillin Sod/Tazobactam (Sod 4.5 gm/ Sodium Chloride) 100 mls @ 25 mls/hr IV Q8H [facility] Last Admin: 08/16/16 06:13 Dose: 25 mls/hr Piperacillin Sod/Tazobactam (Sod 4.5 gm/ Sodium Chloride) 100 mls @ 200 mls/hr IV ONETIME ONE Stop: 08/14/16 22:29 Last Admin: 08/14/16 22:03 Dose: 200 mls/hr Sodium Chloride (Normal Saline) 1,000 mls @ 125 mls/hr IV ASDIRECTED [facility] Last Admin: 08/15/16 05:37 Dose: 125 mls/hr Magnesium Sulfate 2 gm/ Premix 50 mls @ 25 mls/hr IV ONETIME ONE Stop: 08/15/16 13:09 Last Admin: 08/15/16 11:22 Dose: 25 mls/hr Sodium Chloride (Normal Saline) 1,000 mls @ 70 mls/hr IV ASDIRECTED [facility] Last Admin: 08/17/16 07:08 Dose: 70 mls/hr Piperacillin Sod/Tazobactam (Sod 4.5 gm/ Sodium Chloride) 100 mls @ 25 mls/hr IV Q8H [facility] Last Admin: 08/18/16 10:21 Dose: Not Given Ibuprofen (Motrin) 600 mg PO Q8H PRN PRN Reason: Pain (moderate 4-6) Last Admin: 08/18/16 08:57 Dose: 600 mg Lidocaine (Lidoderm 5%) 700 mg TOP Q24H [facility] Last Admin: 08/18/16 11:08 Dose: 700 mg Magnesium Oxide (Magnesium Oxide) 400 mg PO DAILY [facility] Last Admin: 08/18/16 08:50 Dose: 400 mg Magnesium Oxide (Magnesium Oxide) 400 mg PO ONETIME ONE Stop: 08/18/16 08:48 Last Admin: 08/18/16 08:57 Dose: 400 mg Miscellaneous Information (Remove Patch) 1 ea TRDERM Q72H [facility] Last Admin: 08/14/16 22:15 Dose: 1 ea Miscellaneous Information (Remove Patch) 1 ea TRDERM Q72H [facility] Last Admin: 08/18/16 11:09 Dose: 1 ea Miscellaneous Information (Remove Patch) 0 ea TRDERM Q24H [facility] Last Admin: 08/17/16 23:30 Dose: 1 ea Pneumococcal Polyvalent Vaccine (Pneumovax 23) 0.5 ml IM .ONCE ONE Stop: 08/17/16 12:01 Last Admin: 08/18/16 09:04 Dose: Not Given Potassium Chloride (Klor-Con M20) 40 meq PO ONETIME ONE Stop: 08/18/16 08:32 Last Admin: 08/18/16 08:51 Dose: 40 meq Quetiapine Fumarate (Seroquel) 25 mg PO BEDTIME [facility] Last Admin: 08/17/16 20:45 Dose: 25 mg Risperidone (Risperidal) 1 mg PO DAILY [facility] Last Admin: 08/15/16 09:12 Dose: 1 mg Risperidone (Risperidal) 2 mg PO DAILY [facility] Last Admin: 08/18/16 08:50 Dose: 2 mg Risperidone (Risperidal) 1 mg PO ONETIME ONE Stop: 08/15/16 12:31 Last Admin: 08/15/16 13:52 Dose: 1 mg Senna/Docusate Sodium (Senna Plus) 1 tab PO QAM [facility] Last Admin: 08/18/16 08:50 Dose: 1 tab *Q Meaningful Use (DIS) - VTE *Q VTE Criteria *Q: - Stroke *Q Stroke Criteria *Q: - AMI *Q AMI Criteria *Q:
[2016-08-18] MEDS ORDERED: Diphtheria,Pertussis(Acell),Tetanus Vaccine 0.5 ML Syringe IM ONE (08:05)
[2016-08-18] MEDS ORDERED: Potassium Chloride 20 MEQ Tab.ER PO ONE (08:31)
[2016-08-18] MEDS ORDERED: Magnesium Oxide 400 MG Tab PO ONE (08:47)
[2016-08-18] MEDS: Magnesium Oxide 400 MG Tab PO SCH (08:50)
[2016-08-18] MEDS: risperiDONE 1 MG Tab PO SCH (08:50)
[2016-08-18] MEDS: Aspirin 81 MG Tab.Chew PO SCH (08:50)
[2016-08-18] MEDS: Enoxaparin 40 MG/0.4 ML Syringe SUBCUT SCH (08:51)
[2016-08-18] MEDS: Ibuprofen 600 MG Tab PO PRN (08:57)
[2016-08-18] MEDS ORDERED: Famotidine 20 MG Tab PO SCH (09:00)
[2016-08-18] MEDS ORDERED: Diphtheria,Pertussis(Acell),Tetanus Vaccine 0.5 ML SDV IM ONE (09:30)
--- NOTE | 2016-08-18 11:02 | CR ---
Chest: Two views of the chest are obtained. Comparison: Previous chest x-ray of 08/16/16. Decreasing right-sided parenchymal density is seen from prior exam. Left lung is clear. Heart size and mediastinum are stable. Bony structures are osteopenic. Impression: 1. Improved parenchymal density within the right lung from prior chest x-ray. Nothing acute is otherwise appreciated. Diagnostic code #2
[2016-08-18] MEDS: fentaNYL 12 MCG/HR Transdermal Patch TRDERM SCH (11:07)
[2016-08-18] MEDS: Lidocaine 5% 700 MG Patch TOP SCH (11:08)
[2016-08-18] MEDS: Remove Patch*FENTANYL TRDERM SCH (11:09)
[2016-08-18 11:34] VITALS: BP 124/76
== END 2016-08-18 11:42 | DRG 194 ==
LOC: JD.ED 15:22 → UNDOADMIN 20:03 → JD.MS 20:03 → UNDOADMIN 20:05 → JD.MS 20:05 → UNDODISIN 08-18 11:42
PROVIDERS: ADMIT Internal Medicine Cardiovascular Disease; ATTEND Internal Medicine Cardiovascular Disease
DX: J18.9 Pneumonia, unspecified organism (principal); N17.9 Acute kidney failure, unspecified; N18.9 Chronic kidney disease, unspecified; G30.9 Alzheimer's disease, unspecified; F02.80 Dementia in other diseases classified elsewhere, unspecified severity, without behavioral disturbance, psychotic disturbance, mood disturbance, and anxiety; F41.9 Anxiety disorder, unspecified; F32.9 Major depressive disorder, single episode, unspecified; F20.9 Schizophrenia, unspecified; I67.1 Cerebral aneurysm, nonruptured; D64.9 Anemia, unspecified; Z86.718 Personal history of other venous thrombosis and embolism; K59.09 Other constipation; Z79.82 Long term (current) use of aspirin; Z79.899 Other long term (current) drug therapy
CPT/HCPCS: 36415; 70450; 71010; 80053; 81001; 84443; 85025; 86140; 87040 ×2; 96361; 96365; 99285; J0696; J7030; J7040; 71020; 71020-26; 80048; 83605; 83735; 86738; 87486; 87581; 87633; 87641; 87798; 87899; 92610-GN; 97116-GP; 97161-GP; 97166-GO; 97530-GP; 99222; 99232; 99239; 99284; A9270-GY; J1650; J2543; J3475

== ENCOUNTER 2017-04-02 13:40 | Inpatient (IN) | payer MEDICARE, MEDICAID ==
[2017-04-02] MEDS ORDERED: Sodium Chloride 0.9% 1,000 ML IV ONE (14:04)
[2017-04-02] MEDS ORDERED: Sodium Chloride 0.9% 10 ML Syringe FLUSH PRN (14:04)
[2017-04-02] MEDS ORDERED: Sodium Chloride 0.9% 500 ML IV ONE (14:09)
[2017-04-02] MEDS ORDERED: Acetaminophen 650 MG Supp RECTAL ONE (14:14)
[2017-04-02] MEDS ORDERED: Ketorolac 15 MG/ML SDV IVPUSH ONE (14:18)
[2017-04-02] MEDS ORDERED: Ketorolac 30 MG/ML SDV IVPUSH ONE (14:18)
[2017-04-02] MEDS ORDERED: cefTRIAXone 2 GM in Sodium Chloride 0.9% 100 ML IV ONE ×2 (14:19→15:00)
--- NOTE | 2017-04-02 14:28 | EDM.PDOC ---
ED HPI GENERAL MEDICAL PROBLEM - General Chief Complaint: Fever Stated Complaint: [facility] Time Seen by Provider: 04/02/17 14:03 Source of Information: Reports: Patient History Limitations: Reports: No Limitations - History of Present Illness INITIAL COMMENTS - FREE TEXT/NARRATIVE: 67-year-old male presents from [facility] via [facility] for evaluation and treatment of a fever. The patient is pleasantly demented and is unable to provide any history. Per detention report he has been tachycardic and had a fever as high as 104.4. Symptoms started 3 days ago. He received rectal Tylenol around 11 AM today. No vomiting or diarrhea per their report. He tested negative for influenza last week. Patient reports he is also coughing. Patient is incontinent. patient is a DNR, DNI. - Related Data Allergies Allergy/AdvReac Type Severity Reaction Status Date / Time No Known Allergies Allergy Verified 04/02/17 18:05 Home Meds: Home Meds Acetaminophen [Tylenol] 650 mg PO Q4H PRN 04/02/17 [History] Acetaminophen [Tylenol] 650 mg RECTAL Q4H PRN 04/02/17 [History] Aspirin 81 mg PO DAILY 04/02/17 [History] Famotidine 20 mg PO DAILY 04/02/17 [History] Magnesium Oxide 400 mg PO DAILY 04/02/17 [History] Sennosides/Docusate Sodium [Senna-Docusate Sodium] 2 each PO BID 04/02/17 [ History] fentaNYL [Duragesic] 1 patch TD Q72H 04/02/17 [History] risperiDONE [Risperdal] 1.5 mg PO BEDTIME 04/02/17 [History] Past Medical History Cardiovascular History: Reports: Aneurysm, Blood Clots/VTE/DVT Gastrointestinal History: Reports: Chronic Constipation Genitourinary History: Reports: Chronic Renal Insuffiency Musculoskeletal History: Reports: Other (See Below) Other Musculoskeletal History: chronic pain Neurological History: Reports: Cerebral Aneurysms Psychiatric History: Reports: Anxiety, Bipolar, Dementia, Schizophrenia - Past Surgical History Musculoskeletal Surgical History: Reports: Other (See Below) Dermatological Surgical History: Reports: None Social & Family History - Family History Family Medical History: Noncontributory - Tobacco Use Smoking Status *Q: Unknown Ever Smoked Second Hand Smoke Exposure: No - Caffeine Use Caffeine Use: Reports: None Caffeine Use Comment: unable to eval - Recreational Drug Use Recreational Drug Use: No ED ROS GENERAL - Review of Systems Review Of Systems: See Below (per detention) Constitutional: Reports: Fever Respiratory: Reports: Cough GI/Abdominal: Denies: Diarrhea, Vomiting ED EXAM, SEPSIS - Physical Exam Exam: See Below Exam Limited By: Physical Impairment (dementia) General Appearance: Alert, WD/WN, No Apparent Distress Ears: Normal External Exam, Other (TMS obscured by cerumen) Nose: Normal Inspection Throat/Mouth: Normal Inspection, Normal Lips, Normal Voice, No Airway Compromise , Other (dry mucus membranes) Respiratory/Chest: No Respiratory Distress, Decreased Breath Sounds Cardiovascular: Normal Peripheral Pulses, No Murmur, Tachycardia Peripheral Pulses: 3+: Radial (L), Radial (R), Posterior Tibial (L), Posterior Tibial (R), Dorsalis Pedis (L), Dorsalis Pedis (R) GI/Abdominal Exam: Soft, Non-Tender Neurological: Alert, Confused, Slow to Respond Psychiatric: Flat Affect Skin: Dry, Increased Warmth Course - Vital Signs Last Recorded V/S: Last Vital Signs Temp 37.0 C 04/02/17 21:55 Pulse 121 H 04/02/17 21:55 Resp 14 04/02/17 21:55 BP 136/62 04/02/17 21:55 Pulse Ox 92 L 04/02/17 21:55 - Orders/Labs/Meds Orders: Active Orders 24 hr Category Date Time Status Peripheral IV Care [RC] Q2HR Care 04/02/17 14:05 Active Chest 1V Frontal [CR] Stat Exams 04/02/17 14:05 Taken CULTURE BLOOD [BC] Stat Lab 04/02/17 14:05 Received CULTURE BLOOD [BC] Stat Lab 04/02/17 14:12 Received CULTURE URINE [RM] Stat Lab 04/02/17 16:55 Received Sodium Chloride 0.9% [Normal Saline] 1,000 ml Med 04/02/17 17:00 Active IV ASDIRECTED Sodium Chloride 0.9% [Saline Flush] Med 04/02/17 14:04 Active 10 ml FLUSH ASDIRECTED PRN Blood Culture x2 Reflex Set [OM.PC] Stat Oth 04/02/17 14:04 Ordered Peripheral IV Insertion Adult [OM.PC] Routine Oth 04/02/17 14:04 Ordered Resuscitation Status Routine Resus Stat 04/02/17 18:04 Ordered Medication Orders Acetaminophen (Tylenol) 650 mg PO Q6H PRN PRN Reason: Pain/Fever Albuterol (Proventil Neb Soln) 2.5 mg NEB Q4HRRT PRN PRN Reason: Shortness of Breath Albuterol/Ipratropium (Duoneb 3.0-0.5 Mg/3 Ml) 3 ml NEB QID PRN PRN Reason: Shortness of Breath Enoxaparin Sodium (Lovenox) 30 mg SUBCUT DAILY KATIE Haloperidol Lactate (Haldol) 1 mg IVPUSH Q8H PRN PRN Reason: restlessness Sodium Chloride (Normal Saline) 1,000 mls @ 100 mls/hr IV ASDIRECTED KATIE Last Admin: 04/02/17 21:54 Dose: 100 mls/hr Azithromycin 500 mg/ Sodium (Chloride) 250 mls @ 250 mls/hr IV Q24H REPLACED BY [facility] Last Admin: 04/02/17 20:03 Dose: 250 mls/hr Ceftriaxone Sodium 2 gm/ (Sodium Chloride) 100 mls @ 200 mls/hr IV Q24H REPLACED BY [facility] Sodium Chloride (Saline Flush) 10 ml FLUSH ASDIRECTED PRN PRN Reason: Keep Vein Open Last Admin: 04/02/17 14:37 Dose: 10 ml Temazepam (Restoril) 15 mg PO BEDTIME PRN PRN Reason: Insomnia Labs: Laboratory Tests 04/02/17 04/02/17 04/02/17 Range/Units 14:05 14:05 14:05 WBC 19.82 H (4.23-9.07) K/mm3 RBC 3.49 L (4.63-6.08) M/mm3 Hgb 11.4 L (13.7-17.5) gm/L Hct 35.4 L (40.1-51.0) % MCV 101.4 H (79.0-92.2) fl MCH 32.7 H (25.7-32.2) pg MCHC 32.2 (32.2-35.5) g/dl RDW Std Deviation 47.3 H (35.1-43.9) fL Plt Count 222 (163-337) K/mm3 MPV 10.4 (9.4-12.3) fl Neutrophils % (Manual) 91 H (40-60) % Band Neutrophils % 0 (0-10) % Lymphocytes % (Manual) 4 L (20-40) % Atypical Lymphs % 0 % Monocytes % (Manual) 5 (2-10) % Eosinophils % (Manual) 0 L (0.8-7.0) % Basophils % (Manual) 0 L (0.2-1.2) Platelet Estimate Adequate Plt Morphology Comment Normal RBC Morph Comment Normal Sodium 139 (136-145) mEq/L Potassium 4.2 (3.5-5.1) mEq/L Chloride 104 (98-107) mEq/L Carbon Dioxide 25 (21-32) mEq/L Anion Gap 14.2 (5-15) BUN 28 H (7-18) mg/dL Creatinine 1.4 H (0.7-1.3) mg/dL Est Cr Clr Drug Dosing 33.63 mL/min Estimated GFR (MDRD) 50 (>60) mL/min BUN/Creatinine Ratio 20.0 H (14-18) Glucose 186 H (80-115) mg/dL Lactic Acid 2.1 H (0.4-2.0) mmol/L Calcium 9.4 (8.5-10.1) mg/dL Total Bilirubin 0.4 (0.2-1.0) mg/dL AST 70 H (15-37) U/L ALT 90 H (16-63) U/L Alkaline Phosphatase 81 (46-116) U/L C-Reactive Protein 16.4 H* (<1.0) mg/dL Total Protein 7.3 (6.4-8.2) g/dl Albumin 2.6 L (3.4-5.0) g/dl Globulin 4.7 gm/dL Albumin/Globulin Ratio 0.6 L (1-2) Urine Color (Yellow) Urine Appearance (Clear) Urine pH (5.0-8.0) Ur Specific [place] (1.005-1.030) Urine Protein (Negative) Urine Glucose (UA) (Negative) Urine Ketones (Negative) Urine Occult Blood (Negative) Urine Nitrite (Negative) Urine Bilirubin (Negative) Urine Urobilinogen (0.2-1.0) Ur Leukocyte Esterase (Negative) Urine RBC (0-5) /hpf Urine WBC (0-5) /hpf Ur Epithelial Cells (0-5) /hpf Urine Bacteria (FEW) /hpf Urine Mucus (FEW) /hpf 04/02/17 Range/Units 16:55 WBC (4.23-9.07) K/mm3 RBC (4.63-6.08) M/mm3 Hgb (13.7-17.5) gm/L Hct (40.1-51.0) % MCV (79.0-92.2) fl MCH (25.7-32.2) pg MCHC (32.2-35.5) g/dl RDW Std Deviation (35.1-43.9) fL Plt Count (163-337) K/mm3 MPV (9.4-12.3) fl Neutrophils % (Manual) (40-60) % Band Neutrophils % (0-10) % Lymphocytes % (Manual) (20-40) % Atypical Lymphs % % Monocytes % (Manual) (2-10) % Eosinophils % (Manual) (0.8-7.0) % Basophils % (Manual) (0.2-1.2) Platelet Estimate Plt Morphology Comment RBC Morph Comment Sodium (136-145) mEq/L Potassium (3.5-5.1) mEq/L Chloride (98-107) mEq/L Carbon Dioxide (21-32) mEq/L Anion Gap (5-15) BUN (7-18) mg/dL Creatinine (0.7-1.3) mg/dL Est Cr Clr Drug Dosing mL/min Estimated GFR (MDRD) (>60) mL/min BUN/Creatinine Ratio (14-18) Glucose (80-115) mg/dL Lactic Acid (0.4-2.0) mmol/L Calcium (8.5-10.1) mg/dL Total Bilirubin (0.2-1.0) mg/dL AST (15-37) U/L ALT (16-63) U/L Alkaline Phosphatase (46-116) U/L C-Reactive Protein (<1.0) mg/dL Total Protein (6.4-8.2) g/dl Albumin (3.4-5.0) g/dl Globulin gm/dL Albumin/Globulin Ratio (1-2) Urine Color Red H (Yellow) Urine Appearance Cloudy H (Clear) Urine pH 6.5 (5.0-8.0) Ur Specific [place] 1.025 (1.005-1.030) Urine Protein 2+ H (Negative) Urine Glucose (UA) Negative (Negative) Urine Ketones Negative (Negative) Urine Occult Blood 3+ H (Negative) Urine Nitrite Negative (Negative) Urine Bilirubin Negative (Negative) Urine Urobilinogen 0.2 (0.2-1.0) Ur Leukocyte Esterase Trace H (Negative) Urine RBC >100 H (0-5) /hpf Urine WBC 5-10 H (0-5) /hpf Ur Epithelial Cells 5-10 H (0-5) /hpf Urine Bacteria Few (FEW) /hpf Urine Mucus Not seen (FEW) /hpf Meds: Medications Generic Name Dose Route Start Last Admin Trade Name Freq PRN Reason Stop Dose Admin Acetaminophen 650 mg 04/02/17 18:45 Tylenol PO Q6H PRN Pain/Fever Albuterol 2.5 mg 04/02/17 18:50 Proventil Neb Soln NEB Q4HRRT PRN Shortness of Breath Albuterol/Ipratropium 3 ml 04/02/17 18:49 Duoneb 3.0-0.5 Mg/3 Ml NEB QID PRN Shortness of Breath Enoxaparin Sodium 30 mg 04/03/17 09:00 Lovenox SUBCUT DAILY KATIE Haloperidol Lactate 1 mg 04/02/17 19:50 Haldol IVPUSH Q8H PRN restlessness Sodium Chloride 1,000 mls @ 100 mls/hr 04/02/17 17:00 04/02/17 21:54 Normal Saline IV 100 mls/hr ASDIRECTED KATIE Administration Azithromycin 500 mg/ Sodium 250 mls @ 250 mls/hr 04/02/17 19:00 04/02/17 20: 03 Chloride IV 250 mls/hr Q24H KATIE Administration Ceftriaxone Sodium 2 gm/ 100 mls @ 200 mls/hr 04/03/17 15:00 Sodium Chloride IV Q24H KATIE Sodium Chloride 10 ml 04/02/17 14:04 04/02/17 14:37 Saline Flush FLUSH 10 ml ASDIRECTED PRN Administration Keep Vein Open Temazepam 15 mg 04/02/17 19:50 Restoril PO BEDTIME PRN Insomnia Discontinued Medications Generic Name Dose Route Start Last Admin Trade Name Freq PRN Reason Stop Dose Admin Acetaminophen 650 mg 04/02/17 14:14 04/02/17 20:43 Tylenol RECTAL 04/02/17 14:15 Not Given NOW ONE Sodium Chloride 1,000 mls @ 999 mls/hr 04/02/17 14:04 04/02/17 14:30 Normal Saline IV 04/02/17 15:04 999 mls/hr ONETIME ONE Administration Sodium Chloride 500 mls @ 999 mls/hr 04/02/17 14:09 04/02/17 15:37 Normal Saline IV 04/02/17 14:39 999 mls/hr ONETIME ONE Administration Ceftriaxone Sodium 2 gm/ 100 mls @ 200 mls/hr 04/02/17 15:00 04/02/17 15:07 Sodium Chloride IV 04/02/17 15:29 200 mls/hr ONETIME ONE Administration Ketorolac Tromethamine 30 mg 04/02/17 14:18 Toradol IVPUSH 04/02/17 14:19 ONETIME ONE Ketorolac Tromethamine 15 mg 04/02/17 14:18 04/02/17 14:37 Toradol IVPUSH 04/02/17 14:19 15 mg ONETIME ONE Administration - Radiology Interpretation Free Text/Narrative:: 1 view chest xray shows a right middle and lower lobe pneumonia. Reviewed by myself and Dr. Potter. - Re-Assessments/Exams Free Text/Narrative Re-Assessment/Exam: 04/02/17 17:48 influenza returned negative. I am concerned he is septic. Pneumonia present on xray, formal read pending. 2g Rocephin given. Blood cultures pending. I discussed the case with Dr. Waite. She has come and seen the patient in the ER. He will be admitted to the [facility], med surg. Departure - Departure Time of Disposition: 18:00 Disposition: Admitted As Inpatient 64 Preliminary Cause of *Q: Other_Special Instruction Condition: Serious Clinical Impression: Weakness Pneumonia Qualifiers: Pneumonia type: due to unspecified organism Laterality: right Lung location: lower lobe of lung Qualified Code(s): J18.1 - Lobar pneumonia, unspecified organism - Discharge Information - My Orders Last 24 Hours: My Active Orders 04/02/17 14:04 Sodium Chloride 0.9% [Saline Flush] 10 ml FLUSH ASDIRECTED PRN Blood Culture x2 Reflex Set [OM.PC] Stat Peripheral IV Insertion Adult [OM.PC] Routine 04/02/17 14:05 Peripheral IV Care [RC] Q2HR Chest 1V Frontal [CR] Stat CULTURE BLOOD [BC] Stat 04/02/17 14:12 CULTURE BLOOD [BC] Stat 04/02/17 16:55 CULTURE URINE [RM] Stat 04/02/17 17:00 Sodium Chloride 0.9% [Normal Saline] 1,000 ml IV ASDIRECTED - Assessment/Plan Last 24 Hours: My Active Orders 04/02/17 14:04 Sodium Chloride 0.9% [Saline Flush] 10 ml FLUSH ASDIRECTED PRN Blood Culture x2 Reflex Set [OM.PC] Stat Peripheral IV Insertion Adult [OM.PC] Routine 04/02/17 14:05 Peripheral IV Care [RC] Q2HR Chest 1V Frontal [CR] Stat CULTURE BLOOD [BC] Stat 04/02/17 14:12 CULTURE BLOOD [BC] Stat 04/02/17 16:55 CULTURE URINE [RM] Stat 04/02/17 17:00 Sodium Chloride 0.9% [Normal Saline] 1,000 ml IV ASDIRECTED
--- NOTE | 2017-04-02 18:34 | PCM.HP ---
H&P History of Present Illness - General Date of Service: 04/02/17 Admit Problem/Dx: Admission Diagnosis/Problem Admission Diagnosis/Problem Pneumonia Source of Information: Provider History Limitations: Reports: No Limitations - History of Present Illness Initial Comments - Free Text/Narative: 67 year old SN[facility] resident presents after spiking a temperature. He is unable to give a history. Baseline Alzheimers dementia and possibly Schizophrenia is documented. Decrease activity with elevated temps have reportedly been documented for three days [employer]. He has had a cough, generalized weakness and a decreased appetite. Temperature recorded today is 104.4F at [facility] in [place] ; there appears to be an infiltrate in the right lower lobe. He is being admitted for pneumonia with acute confusion. Onset of Symptoms: Reports: Gradual Symptom Onset Date: 03/30/17 Duration of Symptoms: Reports: Day(s):, Getting Worse Location: Reports: Generalized Quality: Reports: Same as Previous Episode Severity: Moderate Improves with: Reports: Medication Worsens with: Reports: None Associated Symptoms: Reports: Fever/Chills, Loss of Appetite, Malaise, Weakness - Related Data Allergies/Adverse Reactions: Allergies Allergy/AdvReac Type Severity Reaction Status Date / Time No Known Allergies Allergy Verified 04/02/17 18:05 Home Medications: Home Meds Acetaminophen [Tylenol] 650 mg PO Q4H PRN 04/02/17 [History] Acetaminophen [Tylenol] 650 mg RECTAL Q4H PRN 04/02/17 [History] Aspirin 81 mg PO DAILY 04/02/17 [History] Famotidine 20 mg PO DAILY 04/02/17 [History] Magnesium Oxide 400 mg PO DAILY 04/02/17 [History] Sennosides/Docusate Sodium [Senna-Docusate Sodium] 2 each PO BID 04/02/17 [ History] fentaNYL [Duragesic] 1 patch TD Q72H 04/02/17 [History] risperiDONE [Risperdal] 1.5 mg PO BEDTIME 04/02/17 [History] Past Medical History Cardiovascular History: Reports: Aneurysm, Blood Clots/VTE/DVT Gastrointestinal History: Reports: Chronic Constipation Genitourinary History: Reports: Chronic Renal Insuffiency Musculoskeletal History: Reports: Other (See Below) Other Musculoskeletal History: chronic pain Neurological History: Reports: Cerebral Aneurysms Psychiatric History: Reports: Anxiety, Bipolar, Dementia, Schizophrenia - Past Surgical History Musculoskeletal Surgical History: Reports: Other (See Below) Dermatological Surgical History: Reports: None Social & Family History - Family History Family Medical History: Noncontributory - Tobacco Use Smoking Status *Q: Unknown Ever Smoked Second Hand Smoke Exposure: No - Caffeine Use Caffeine Use: Reports: None Caffeine Use Comment: unable to eval - Recreational Drug Use Recreational Drug Use: No H&P Review of Systems - Review of Systems: Review Of Systems: See Below General: Reports: Fever, Chills, Malaise, Weakness, Fatigue, Decreased Appetite HEENT: Reports: No Symptoms Pulmonary: Reports: Shortness of Breath, Cough Cardiovascular: Reports: No Symptoms Gastrointestinal: Reports: No Symptoms Genitourinary: Reports: No Symptoms Musculoskeletal: Reports: No Symptoms Skin: Reports: No Symptoms Psychiatric: Reports: No Symptoms Neurological: Reports: No Symptoms Hematologic/Lymphatic: Reports: No Symptoms Immunologic: Reports: No Symptoms Exam - Exam Exam: See Below - Vital Signs Vital Signs: Last Vital Signs Temp 39.2 C H 04/02/17 13:46 Pulse 127 H 04/02/17 13:46 Resp 22 H 04/02/17 13:46 BP 114/49 L 04/02/17 13:46 Pulse Ox 91 L 04/02/17 13:46 Weight: 47.741 kg - Exam Quality Assessment: Supplemental Oxygen, DVT Prophylaxis General: Alert, Oriented, Cooperative HEENT: Conjunctiva Clear, EOMI, Pupils Equal, Pupils Reactive, PERRLA Neck: Trachea Midline Lungs: Normal Respiratory Effort, Decreased Breath Sounds, Rhonchi, Wheezing Cardiovascular: Regular Rate GI/Abdominal Exam: Normal Bowel Sounds, Soft, Non-Tender, No Organomegaly, No Distention (Male) Exam: Deferred Rectal (Males) Exam: Deferred Back Exam: Normal Inspection Extremities: Normal Inspection Skin: Warm Neurological: Cranial Nerves Intact Neuro Extensive - Mental Status: Alert Neuro Extensive - Motor, Sensory, Reflexes: CN II-XII Intact Psychiatric: Alert - Patient Data Result Diagrams: 04/03/17 05:28 04/03/17 05:28 *Q Meaningful Use (ADM) - VTE *Q VTE Criteria *Q: - Stroke *Q Stroke Criteria *Q: - AMI *Q AMI Criteria *Q: - Problem List (1) Pneumonia SNOMED Code(s): 901841615 ICD Code: J18.9 - PNEUMONIA, UNSPECIFIED ORGANISM Status: Acute Priority : High Current Visit: Yes Qualifiers: Pneumonia type: due to unspecified organism Laterality: right Lung location: lower lobe of lung Qualified Code(s): J18.1 - Lobar pneumonia, unspecified organism (2) Weakness SNOMED Code(s): 91955305 ICD Code: R53.1 - WEAKNESS Status: Acute Current Visit: Yes (3) Alzheimer's dementia SNOMED Code(s): 36508318 ICD Code: G30.9 - ALZHEIMER'S DISEASE, UNSPECIFIED Status: Chronic Priority: Medium Current Visit: No (4) CKD (chronic kidney disease) SNOMED Code(s): 940945998 ICD Code: N18.9 - CHRONIC KIDNEY DISEASE, UNSPECIFIED Status: Chronic Priority: High Current Visit: No (5) Schizophrenia SNOMED Code(s): 56112329 ICD Code: F20.9 - SCHIZOPHRENIA, UNSPECIFIED Status: Chronic Priority: Medium Current Visit: No (6) DEEPIKA (acute kidney injury) SNOMED Code(s): 40267222 ICD Code: N17.9 - ACUTE KIDNEY FAILURE, UNSPECIFIED Status: Resolved Priority: High Current Visit: No Problem List Initiated/Reviewed/Updated: Yes Orders Last 24hrs: Medication Orders Sodium Chloride (Normal Saline) 1,000 mls @ 100 mls/hr IV ASDIRECTED KATIE Sodium Chloride (Saline Flush) 10 ml FLUSH ASDIRECTED PRN PRN Reason: Keep Vein Open Last Admin: 04/02/17 14:37 Dose: 10 ml Assessment/Plan Comment:: Impression: RLL PNA, febrile Leukocytosis AMS with baseline Alzheimer dementia Mental Health Disorders -Bipolar -Schizophrenia Acute on chronic renal insufficiency CKD stage 2-3) Hematuria Plan: Empiric IV ATBs Keep O2 Sat>92% IVF NEBs Daily labs Home meds DVT/GI prophylaxis
[2017-04-02] MEDS ORDERED: Acetaminophen 325 MG Tab PO PRN (18:45)
[2017-04-02] MEDS ORDERED: Albuterol/Ipratropium 3.0-0.5 MG/3 ML Neb Soln NEB PRN (18:49)
[2017-04-02] MEDS ORDERED: Albuterol 0.083% 2.5 MG/3 ML Neb Soln NEB PRN (18:50)
[2017-04-02] MEDS ORDERED: Haloperidol Lactate 5 MG/ML SDV IVPUSH PRN (19:50)
[2017-04-02] MEDS ORDERED: Temazepam 15 MG Cap PO PRN (19:50)
[2017-04-02] MEDS: Azithromycin 500 MG in Sodium Chloride 0.9% 250 ML IV SCH (20:03)
[2017-04-02] MEDS: Sodium Chloride 0.9% 1,000 ML IV SCH (21:54)
[2017-04-03] MEDS: Enoxaparin 30 MG/0.3 ML Syringe SUBCUT SCH (08:51)
[2017-04-03] MEDS: Sodium Chloride 0.9% 1,000 ML IV SCH ×2 (08:51→18:45)
[2017-04-03] MEDS: cefTRIAXone 2 GM in Sodium Chloride 0.9% 100 ML IV SCH (14:11)
[2017-04-03] MEDS ORDERED: cefTRIAXone 2 GM Vial IVPUSH SCH (15:00)
--- NOTE | 2017-04-03 17:11 | PCM.PN ---
- General Info Date of Service: 04/03/17 Functional Status: Reports: Tolerating Diet, Urinating - Review of Systems General: Reports: No Symptoms HEENT: Reports: No Symptoms Pulmonary: Reports: No Symptoms Cardiovascular: Reports: No Symptoms Gastrointestinal: Reports: No Symptoms Genitourinary: Reports: No Symptoms Musculoskeletal: Reports: No Symptoms Skin: Reports: No Symptoms Neurological: Reports: No Symptoms Psychiatric: Reports: No Symptoms - Patient Data Vitals - Most Recent: Last Vital Signs Temp 36.8 C 04/03/17 08:32 Pulse 95 04/03/17 15:22 Resp 16 04/03/17 15:22 BP 158/69 H 04/03/17 15:22 Pulse Ox 95 04/03/17 15:22 Weight - Most Recent: 48.217 kg I&O - Last 24 Hours: Intake & Output 04/03/17 04/03/17 04/03/17 06:59 14:59 22:59 Intake Total 1352 0 1794 Balance 1352 0 1794 Lab Results Last 24 Hours: Laboratory Results - last 24 hr 04/02/17 04/02/17 04/03/17 Range/Units 20:17 20:25 05:28 WBC 17.15 H (4.23-9.07) K/mm3 RBC 3.14 L (4.63-6.08) M/mm3 Hgb 10.2 L (13.7-17.5) gm/L Hct 32.0 L (40.1-51.0) % MCV 101.9 H (79.0-92.2) fl MCH 32.5 H (25.7-32.2) pg MCHC 31.9 L (32.2-35.5) g/dl RDW Std Deviation 47.1 H (35.1-43.9) fL Plt Count 210 (163-337) K/mm3 MPV 10.3 (9.4-12.3) fl Neut % (Auto) 84.9 H (34.0-67.9) % Lymph % (Auto) 6.5 L (21.8-53.1) % [place] % (Auto) 6.5 (5.3-12.2) % Eos % (Auto) 1.7 (0.8-7.0) Baso % (Auto) 0.1 (0.1-1.2) % Neut # (Auto) 14.56 H (1.78-5.38) K/mm3 Lymph # (Auto) 1.12 L (1.32-3.57) K/mm3 [place] # (Auto) 1.12 H (0.30-0.82) K/mm3 Eos # (Auto) 0.29 (0.04-0.54) K/mm3 Baso # (Auto) 0.01 (0.01-0.08) K/mm3 Manual Slide Review Abnormal smear Sodium (136-145) mEq/L Potassium (3.5-5.1) mEq/L Chloride (98-107) mEq/L Carbon Dioxide (21-32) mEq/L Anion Gap (5-15) BUN (7-18) mg/dL Creatinine (0.7-1.3) mg/dL Est Cr Clr Drug Dosing mL/min Estimated GFR (MDRD) (>60) mL/min BUN/Creatinine Ratio (14-18) Glucose (80-115) mg/dL Lactic Acid 1.2 (0.4-2.0) mmol/L Calcium (8.5-10.1) mg/dL Magnesium (1.8-2.4) mg/dl C-Reactive Protein (<1.0) mg/dL Mycoplasma pneumon IgM (NEGATIVE) MRSA (PCR) Negative 04/03/17 04/03/17 Range/Units 05:28 05:28 WBC (4.23-9.07) K/mm3 RBC (4.63-6.08) M/mm3 Hgb (13.7-17.5) gm/L Hct (40.1-51.0) % MCV (79.0-92.2) fl MCH (25.7-32.2) pg MCHC (32.2-35.5) g/dl RDW Std Deviation (35.1-43.9) fL Plt Count (163-337) K/mm3 MPV (9.4-12.3) fl Neut % (Auto) (34.0-67.9) % Lymph % (Auto) (21.8-53.1) % [place] % (Auto) (5.3-12.2) % Eos % (Auto) (0.8-7.0) Baso % (Auto) (0.1-1.2) % Neut # (Auto) (1.78-5.38) K/mm3 Lymph # (Auto) (1.32-3.57) K/mm3 [place] # (Auto) (0.30-0.82) K/mm3 Eos # (Auto) (0.04-0.54) K/mm3 Baso # (Auto) (0.01-0.08) K/mm3 Manual Slide Review Sodium 140 (136-145) mEq/L Potassium 4.1 (3.5-5.1) mEq/L Chloride 108 H (98-107) mEq/L Carbon Dioxide 24 (21-32) mEq/L Anion Gap 12.1 (5-15) BUN 18 (7-18) mg/dL Creatinine 1.0 (0.7-1.3) mg/dL Est Cr Clr Drug Dosing 47.55 mL/min Estimated GFR (MDRD) > 60 (>60) mL/min BUN/Creatinine Ratio 18.0 (14-18) Glucose 98 (80-115) mg/dL Lactic Acid 0.5 (0.4-2.0) mmol/L Calcium 8.8 (8.5-10.1) mg/dL Magnesium 1.9 (1.8-2.4) mg/dl C-Reactive Protein 23.0 H* (<1.0) mg/dL Mycoplasma pneumon IgM Negative (NEGATIVE) MRSA (PCR) Med Orders - Current: Current Medications Acetaminophen (Tylenol) 650 mg PO Q6H PRN PRN Reason: Pain/Fever Albuterol (Proventil Neb Soln) 2.5 mg NEB Q4HRRT PRN PRN Reason: Shortness of Breath Albuterol/Ipratropium (Duoneb 3.0-0.5 Mg/3 Ml) 3 ml NEB QID PRN PRN Reason: Shortness of Breath Aspirin (Aspirin) 81 mg PO DAILY [facility] Enoxaparin Sodium (Lovenox) 30 mg SUBCUT DAILY [facility] Last Admin: 04/03/17 08:51 Dose: 30 mg Famotidine (Pepcid) 20 mg PO DAILY [facility] Fentanyl (Duragesic) 12 mcg TRDERM Q72H [facility] Haloperidol Lactate (Haldol) 1 mg IVPUSH Q8H PRN PRN Reason: restlessness Sodium Chloride (Normal Saline) 1,000 mls @ 100 mls/hr IV ASDIRECTED [facility] Last Admin: 04/03/17 08:51 Dose: 100 mls/hr Azithromycin 500 mg/ Sodium (Chloride) 250 mls @ 250 mls/hr IV Q24H [facility] Last Admin: 04/02/17 20:03 Dose: 250 mls/hr Ceftriaxone Sodium 2 gm/ (Sodium Chloride) 100 mls @ 200 mls/hr IV Q24H [facility] Last Admin: 04/03/17 14:11 Dose: 200 mls/hr Magnesium Oxide (Magnesium Oxide) 400 mg PO DAILY [facility] Miscellaneous Information (Remove Patch) 1 ea TRDERM Q72H [facility] Risperidone (Risperidal) 1.5 mg PO BEDTIME [facility] Senna/Docusate Sodium (Senna Plus) 2 tab PO BID [facility] Sodium Chloride (Saline Flush) 10 ml FLUSH ASDIRECTED PRN PRN Reason: Keep Vein Open Last Admin: 04/02/17 14:37 Dose: 10 ml Temazepam (Restoril) 15 mg PO BEDTIME PRN PRN Reason: Insomnia Discontinued Medications Acetaminophen (Tylenol) 650 mg RECTAL NOW ONE Stop: 04/02/17 14:15 Last Admin: 04/02/17 20:43 Dose: Not Given Sodium Chloride (Normal Saline) 1,000 mls @ 999 mls/hr IV ONETIME ONE Stop: 04/02/17 15:04 Last Admin: 04/02/17 14:30 Dose: 999 mls/hr Sodium Chloride (Normal Saline) 500 mls @ 999 mls/hr IV ONETIME ONE Stop: 04/02/17 14:39 Last Admin: 04/02/17 15:37 Dose: 999 mls/hr Ceftriaxone Sodium 2 gm/ (Sodium Chloride) 100 mls @ 200 mls/hr IV ONETIME ONE Stop: 04/02/17 15:29 Last Admin: 04/02/17 15:07 Dose: 200 mls/hr Ketorolac Tromethamine (Toradol) 30 mg IVPUSH ONETIME ONE Stop: 04/02/17 14:19 Ketorolac Tromethamine (Toradol) 15 mg IVPUSH ONETIME ONE Stop: 04/02/17 14:19 Last Admin: 04/02/17 14:37 Dose: 15 mg - Exam Quality Assessment: Supplemental Oxygen, DVT Prophylaxis General: Alert, Oriented, Cooperative, No Acute Distress HEENT: Pupils Equal, Pupils Reactive, EOMI Neck: Trachea Midline, No JVD Lungs: Normal Respiratory Effort, Decreased Breath Sounds Cardiovascular: Regular Rate, Regular Rhythm GI/Abdominal Exam: Normal Bowel Sounds, Soft, Non-Tender, No Organomegaly (Male) Exam: Deferred Back Exam: Normal Inspection Extremities: Normal Inspection, Normal Range of Motion, Non-Tender, No Pedal Edema Skin: Warm Neurological: No New Focal Deficit Psy/Mental Status: Alert - Problem List Review Problem List Initiated/Reviewed/Updated: Yes - My Orders Last 24 Hours: My Active Orders 04/02/17 18:45 Acetaminophen [Tylenol] 650 mg PO Q6H PRN 04/02/17 18:49 Albuterol/Ipratropium [DuoNeb 3.0-0.5 MG/3 ML] 3 ml NEB QID PRN 04/02/17 18:50 RT Aerosol Therapy [RC] ASDIRECTED Albuterol [Proventil Neb Soln] 2.5 mg NEB Q4HRRT PRN 04/02/17 18:52 STREP PNEUMONIAE ANTIGEN [MREF] Routine 04/02/17 18:53 Isolation [COMM] Routine 04/02/17 19:00 Azithromycin [Zithromax] 500 mg Sodium Chloride 0.9% [Normal Saline] 250 ml IV Q24H 04/02/17 19:50 Haloperidol Lactate [Haldol] 1 mg IVPUSH Q8H PRN Temazepam [Restoril] 15 mg PO BEDTIME PRN 04/02/17 22:15 INFLUENZA A,B, H1N1 BY PCR [MREF] Routine 04/02/17 Dinner Clear Liquid Diet [DIET] 04/03/17 01:10 Activity as Tolerated [RC] .Routine 04/03/17 09:00 Enoxaparin [Lovenox] 30 mg SUBCUT DAILY 04/03/17 14:38 Consult to Speech Language Pathology [[employer] IN[employer] Evaluation and Treatment] [CONS] Routine 04/03/17 15:00 cefTRIAXone [Rocephin] 2 gm Sodium Chloride 0.9% [Normal Saline] 100 ml IV Q24H 04/03/17 18:00 Remove Patch 1 ea TRDERM Q72H fentaNYL [Duragesic] 12 mcg TRDERM Q72H 04/03/17 21:00 Docusate Sodium/Sennosides [Senna Plus] 2 tab PO BID risperiDONE [RisperiDAL] 1.5 mg PO BEDTIME 04/04/17 05:00 BASIC METABOLIC PANEL,BMP [CHEM] DAILY CBC WITH AUTO DIFF [HEME] DAILY CRP [C-REACTIVE PROTEIN] [CHEM] DAILY LACTIC ACID [CHEM] DAILY MAGNESIUM [CHEM] DAILY 04/04/17 09:00 Aspirin 81 mg PO DAILY Famotidine [Pepcid] 20 mg PO DAILY Magnesium Oxide 400 mg PO DAILY 04/05/17 05:00 BASIC METABOLIC PANEL,BMP [CHEM] DAILY CBC WITH AUTO DIFF [HEME] DAILY CRP [C-REACTIVE PROTEIN] [CHEM] DAILY LACTIC ACID [CHEM] DAILY MAGNESIUM [CHEM] DAILY 04/05/17 08:00 CXR [Chest 2V] [CR] Routine 04/06/17 05:00 BASIC METABOLIC PANEL,BMP [CHEM] DAILY CBC WITH AUTO DIFF [HEME] DAILY CRP [C-REACTIVE PROTEIN] [CHEM] DAILY LACTIC ACID [CHEM] DAILY MAGNESIUM [CHEM] DAILY - Plan Plan:: Impression: RLL, PNA; BC are positive with G+ cocci in chains; ID/Sensitivity pending Leukocytosis 19.8-->17.1 AMS--resolved with baseline Alzheimer dementia Mental Health Disorders -Bipolar -Schizophrenia Acute on chronic 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
[2017-04-03] MEDS: fentaNYL 12 MCG/HR Transdermal Patch TRDERM SCH (18:43)
[2017-04-03] MEDS: Azithromycin 500 MG in Sodium Chloride 0.9% 250 ML IV SCH (18:43)
[2017-04-03] MEDS: REMOVE FENTANYL TRDERM SCH (18:44)
[2017-04-03] MEDS: risperiDONE 1 MG Tab PO SCH (21:54)
[2017-04-04] MEDS: Sodium Chloride 0.9% 1,000 ML IV SCH ×2 (05:02→14:38)
[2017-04-04] MEDS: Aspirin 81 MG Tab.Chew PO SCH (08:44)
[2017-04-04] MEDS: Enoxaparin 30 MG/0.3 ML Syringe SUBCUT SCH (08:44)
[2017-04-04] MEDS: Famotidine 20 MG Tab PO SCH (08:45)
[2017-04-04] MEDS: Magnesium Oxide 400 MG Tab PO SCH (08:45)
[2017-04-04] MEDS: cefTRIAXone 2 GM in Sodium Chloride 0.9% 100 ML IV SCH (14:38)
--- NOTE | 2017-04-04 17:47 | CR ---
Chest: Portable view of the chest was obtained. Comparison: Prior chest x-ray of 08/18/16. Increased density is noted within the right mid and right lower lung. Mild interstitial change is seen within the left mid and lower lung. Heart size is normal. Upper mediastinum is within normal limits. Impression: 1. Findings felt compatible with right mid and lower lung pneumonia as well as mild bilateral bronchitis. Diagnostic code #3
[2017-04-04] MEDS: Azithromycin 500 MG in Sodium Chloride 0.9% 250 ML IV SCH (18:41)
--- NOTE | 2017-04-04 20:27 | PCM.PN ---
- General Info Date of Service: 04/04/17 Functional Status: Reports: Tolerating Diet, Urinating - Review of Systems General: Reports: No Symptoms HEENT: Reports: No Symptoms Pulmonary: Reports: No Symptoms Cardiovascular: Reports: No Symptoms Gastrointestinal: Reports: No Symptoms Genitourinary: Reports: No Symptoms Musculoskeletal: Reports: No Symptoms Skin: Reports: No Symptoms Neurological: Reports: No Symptoms Psychiatric: Reports: No Symptoms - Patient Data Vitals - Most Recent: Last Vital Signs Temp 37.3 C 04/04/17 08:31 Pulse 93 04/04/17 15:08 Resp 20 04/04/17 15:08 BP 140/97 H 04/04/17 15:08 Pulse Ox 94 L 04/04/17 15:08 Weight - Most Recent: 50.439 kg I&O - Last 24 Hours: Intake & Output 04/04/17 04/04/17 04/04/17 06:59 14:59 22:59 Intake Total 1679 0 1200 Balance 1679 0 1200 Lab Results Last 24 Hours: Laboratory Results - last 24 hr 04/04/17 04/04/17 04/04/17 Range/Units 06:37 06:37 06:37 WBC 10.68 H (4.23-9.07) K/mm3 RBC 3.23 L (4.63-6.08) M/mm3 Hgb 10.3 L (13.7-17.5) gm/L Hct 32.4 L (40.1-51.0) % MCV 100.3 H (79.0-92.2) fl MCH 31.9 (25.7-32.2) pg MCHC 31.8 L (32.2-35.5) g/dl RDW Std Deviation 43.8 (35.1-43.9) fL Plt Count 223 (163-337) K/mm3 MPV 10.2 (9.4-12.3) fl Neut % (Auto) 75.5 H (34.0-67.9) % Lymph % (Auto) 10.6 L (21.8-53.1) % [place] % (Auto) 8.7 (5.3-12.2) % Eos % (Auto) 4.6 (0.8-7.0) Baso % (Auto) 0.1 (0.1-1.2) % Neut # (Auto) 8.07 H (1.78-5.38) K/mm3 Lymph # (Auto) 1.13 L (1.32-3.57) K/mm3 [place] # (Auto) 0.93 H (0.30-0.82) K/mm3 Eos # (Auto) 0.49 (0.04-0.54) K/mm3 Baso # (Auto) 0.01 (0.01-0.08) K/mm3 Sodium 137 (136-145) mEq/L Potassium 3.7 (3.5-5.1) mEq/L Chloride 104 (98-107) mEq/L Carbon Dioxide 23 (21-32) mEq/L Anion Gap 13.7 (5-15) BUN 13 (7-18) mg/dL Creatinine 0.9 (0.7-1.3) mg/dL Est Cr Clr Drug Dosing 55.27 mL/min Estimated GFR (MDRD) > 60 (>60) mL/min BUN/Creatinine Ratio 14.4 (14-18) Glucose 79 L (80-115) mg/dL Lactic Acid 0.9 (0.4-2.0) mmol/L Calcium 9.2 (8.5-10.1) mg/dL Magnesium 1.5 L (1.8-2.4) mg/dl C-Reactive Protein 15.6 H* (<1.0) mg/dL Med Orders - Current: Current Medications Acetaminophen (Tylenol) 650 mg PO Q6H PRN PRN Reason: Pain/Fever Albuterol (Proventil Neb Soln) 2.5 mg NEB Q4HRRT PRN PRN Reason: Shortness of Breath Albuterol/Ipratropium (Duoneb 3.0-0.5 Mg/3 Ml) 3 ml NEB QID PRN PRN Reason: Shortness of Breath Aspirin (Aspirin) 81 mg PO DAILY [facility] Last Admin: 04/04/17 08:44 Dose: 81 mg Enoxaparin Sodium (Lovenox) 30 mg SUBCUT DAILY [facility] Last Admin: 04/04/17 08:44 Dose: 30 mg Famotidine (Pepcid) 20 mg PO DAILY [facility] Last Admin: 04/04/17 08:45 Dose: 20 mg Fentanyl (Duragesic) 12 mcg TRDERM Q72H [facility] Last Admin: 04/03/17 18:43 Dose: 12 mcg Haloperidol Lactate (Haldol) 1 mg IVPUSH Q8H PRN PRN Reason: restlessness Sodium Chloride (Normal Saline) 1,000 mls @ 100 mls/hr IV ASDIRECTED [facility] Last Admin: 04/04/17 14:38 Dose: 100 mls/hr Azithromycin 500 mg/ Sodium (Chloride) 250 mls @ 250 mls/hr IV Q24H [facility] Last Admin: 04/04/17 18:41 Dose: 250 mls/hr Ceftriaxone Sodium 2 gm/ (Sodium Chloride) 100 mls @ 200 mls/hr IV Q24H [facility] Last Admin: 04/04/17 14:38 Dose: 200 mls/hr Magnesium Oxide (Magnesium Oxide) 400 mg PO DAILY [facility] Last Admin: 04/04/17 08:45 Dose: 400 mg Miscellaneous Information (Remove Patch) 1 ea TRDERM Q72H [facility] Last Admin: 04/03/17 18:44 Dose: 1 ea Risperidone (Risperidal) 1.5 mg PO BEDTIME [facility] Last Admin: 04/03/17 21:54 Dose: 1.5 mg Senna/Docusate Sodium (Senna Plus) 2 tab PO BID [facility] Last Admin: 04/04/17 08:45 Dose: 2 tab Sodium Chloride (Saline Flush) 10 ml FLUSH ASDIRECTED PRN PRN Reason: Keep Vein Open Last Admin: 04/02/17 14:37 Dose: 10 ml Temazepam (Restoril) 15 mg PO BEDTIME PRN PRN Reason: Insomnia Discontinued Medications Acetaminophen (Tylenol) 650 mg RECTAL NOW ONE Stop: 04/02/17 14:15 Last Admin: 04/02/17 20:43 Dose: Not Given Sodium Chloride (Normal Saline) 1,000 mls @ 999 mls/hr IV ONETIME ONE Stop: 04/02/17 15:04 Last Admin: 04/02/17 14:30 Dose: 999 mls/hr Sodium Chloride (Normal Saline) 500 mls @ 999 mls/hr IV ONETIME ONE Stop: 04/02/17 14:39 Last Admin: 04/02/17 15:37 Dose: 999 mls/hr Ceftriaxone Sodium 2 gm/ (Sodium Chloride) 100 mls @ 200 mls/hr IV ONETIME ONE Stop: 02/09/18 15:29 Last Admin: 04/02/17 15:07 Dose: 200 mls/hr Ketorolac Tromethamine (Toradol) 30 mg IVPUSH ONETIME ONE Stop: 04/02/17 14:19 Ketorolac Tromethamine (Toradol) 15 mg IVPUSH ONETIME ONE Stop: 04/02/17 14:19 Last Admin: 04/02/17 14:37 Dose: 15 mg - Exam Quality Assessment: Supplemental Oxygen, DVT Prophylaxis General: Alert, Oriented, No Acute Distress HEENT: Pupils Equal, Pupils Reactive, EOMI Neck: Trachea Midline Lungs: Normal Respiratory Effort, Decreased Breath Sounds Cardiovascular: Regular Rate, Regular Rhythm GI/Abdominal Exam: Normal Bowel Sounds, Soft, Non-Tender, No Organomegaly, No Distention (Male) Exam: Deferred Back Exam: Normal Inspection Extremities: Normal Inspection Skin: Warm Neurological: No New Focal Deficit Psy/Mental Status: Alert - Problem List Review Problem List Initiated/Reviewed/Updated: Yes - My Orders Last 24 Hours: My Active Orders 04/03/17 21:00 Docusate Sodium/Sennosides [Senna Plus] 2 tab PO BID risperiDONE [RisperiDAL] 1.5 mg PO BEDTIME 04/04/17 09:00 Aspirin 81 mg PO DAILY Famotidine [Pepcid] 20 mg PO DAILY Magnesium Oxide 400 mg PO DAILY 04/04/17 11:19 Patient Status [ADT] Routine 04/05/17 05:00 BASIC METABOLIC PANEL,BMP [CHEM] DAILY CBC WITH AUTO DIFF [HEME] DAILY CRP [C-REACTIVE PROTEIN] [CHEM] DAILY LACTIC ACID [CHEM] DAILY MAGNESIUM [CHEM] DAILY 04/05/17 08:00 CXR [Chest 2V] [CR] Routine 04/06/17 05:00 BASIC METABOLIC PANEL,BMP [CHEM] DAILY CBC WITH AUTO DIFF [HEME] DAILY CRP [C-REACTIVE PROTEIN] [CHEM] DAILY LACTIC ACID [CHEM] DAILY MAGNESIUM [CHEM] DAILY - Plan Plan:: Impression: RLL, PNA; BC are positive with G+ cocci in chains; ID/Sensitivity pending Leukocytosis 19.8-->17.1 AMS--resolved with baseline Alzheimer dementia Mental Health Disorders -Bipolar -Schizophrenia Acute on chronic 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
[2017-04-04] MEDS: risperiDONE 1 MG Tab PO SCH (20:56)
[2017-04-05] MEDS: Sodium Chloride 0.9% 1,000 ML IV SCH ×3 (00:40→21:24)
[2017-04-05] MEDS: Famotidine 20 MG Tab PO SCH (10:21)
[2017-04-05] MEDS: Magnesium Oxide 400 MG Tab PO SCH (10:21)
[2017-04-05] MEDS: Aspirin 81 MG Tab.Chew PO SCH (10:22)
[2017-04-05] MEDS: Enoxaparin 40 MG/0.4 ML Syringe SUBCUT SCH (10:31)
[2017-04-05] MEDS ORDERED: Magnesium Sulfate/Water 2 GM in Premix Bag 1 BAG IV ONE (10:55)
[2017-04-05] MEDS: Potassium Chloride 20 MEQ Tab.ER PO SCH ×2 (11:22→21:23)
--- NOTE | 2017-04-05 11:44 | CR ---
Chest: Two views of the chest were obtained. Comparison: Prior chest x-ray of 04/02/17. More consolidation is seen within the right midlung. Other areas of increased density within the right lung remain stable. Left lung shows minimal scarring but is otherwise clear. Heart size and mediastinum are normal. Bony structures are unremarkable. Impression: 1. Slight increased consolidation within the right midlung from prior study. Other portions of the right lung parenchymal density remain stable from most recent exam. Diagnostic code #3
[2017-04-05] MEDS: cefTRIAXone 2 GM in Sodium Chloride 0.9% 100 ML IV SCH (15:19)
[2017-04-05] MEDS ORDERED: Azithromycin 250 MG in Sodium Chloride 0.9% 250 ML IV SCH ×4 (17:00)
--- NOTE | 2017-04-05 17:08 | PCM.PN ---
- General Info Date of Service: 04/05/17 Functional Status: Reports: Tolerating Diet (changes per SP assessment) - Review of Systems General: Reports: No Symptoms HEENT: Reports: No Symptoms Pulmonary: Reports: No Symptoms Cardiovascular: Reports: No Symptoms Gastrointestinal: Reports: No Symptoms Genitourinary: Reports: No Symptoms Musculoskeletal: Reports: No Symptoms Skin: Reports: No Symptoms Neurological: Reports: No Symptoms Psychiatric: Reports: No Symptoms - Patient Data Vitals - Most Recent: Last Vital Signs Temp 37.1 C 04/05/17 08:31 Pulse 91 04/05/17 15:09 Resp 20 04/05/17 15:09 BP 173/77 H 04/05/17 15:09 Pulse Ox 94 L 04/05/17 15:09 Weight - Most Recent: 49.532 kg I&O - Last 24 Hours: Intake & Output 04/05/17 04/05/17 04/05/17 06:59 14:59 22:59 Intake Total 1248 0 Balance 1248 0 Lab Results Last 24 Hours: Laboratory Results - last 24 hr 04/05/17 04/05/17 04/05/17 Range/Units 06:00 06:00 06:00 WBC 6.55 (4.23-9.07) K/mm3 RBC 3.16 L (4.63-6.08) M/mm3 Hgb 10.1 L (13.7-17.5) gm/L Hct 31.3 L (40.1-51.0) % MCV 99.1 H (79.0-92.2) fl MCH 32.0 (25.7-32.2) pg MCHC 32.3 (32.2-35.5) g/dl RDW Std Deviation 42.1 (35.1-43.9) fL Plt Count 277 (163-337) K/mm3 MPV 10.0 (9.4-12.3) fl Neut % (Auto) 74.3 H (34.0-67.9) % Lymph % (Auto) 13.7 L (21.8-53.1) % [place] % (Auto) 10.5 (5.3-12.2) % Eos % (Auto) 0.8 (0.8-7.0) Baso % (Auto) 0.2 (0.1-1.2) % Neut # (Auto) 4.87 (1.78-5.38) K/mm3 Lymph # (Auto) 0.90 L (1.32-3.57) K/mm3 [place] # (Auto) 0.69 (0.30-0.82) K/mm3 Eos # (Auto) 0.05 (0.04-0.54) K/mm3 Baso # (Auto) 0.01 (0.01-0.08) K/mm3 Sodium 137 (136-145) mEq/L Potassium 3.4 L (3.5-5.1) mEq/L Chloride 103 (98-107) mEq/L Carbon Dioxide 19 L (21-32) mEq/L Anion Gap 18.4 H (5-15) BUN 11 (7-18) mg/dL Creatinine 0.8 (0.7-1.3) mg/dL Est Cr Clr Drug Dosing 61.06 mL/min Estimated GFR (MDRD) > 60 (>60) mL/min BUN/Creatinine Ratio 13.8 L (14-18) Glucose 67 L (80-115) mg/dL Lactic Acid 0.8 (0.4-2.0) mmol/L Calcium 9.2 (8.5-10.1) mg/dL Magnesium 1.5 L (1.8-2.4) mg/dl C-Reactive Protein 11.9 H* (<1.0) mg/dL Med Orders - Current: Current Medications Acetaminophen (Tylenol) 650 mg PO Q6H PRN PRN Reason: Pain/Fever Albuterol (Proventil Neb Soln) 2.5 mg NEB Q4HRRT PRN PRN Reason: Shortness of Breath Albuterol/Ipratropium (Duoneb 3.0-0.5 Mg/3 Ml) 3 ml NEB QID PRN PRN Reason: Shortness of Breath Aspirin (Aspirin) 81 mg PO DAILY [facility] Last Admin: 04/05/17 10:22 Dose: 81 mg Enoxaparin Sodium (Lovenox) 40 mg SUBCUT DAILY [facility] Last Admin: 04/05/17 10:31 Dose: 40 mg Famotidine (Pepcid) 20 mg PO DAILY [facility] Last Admin: 04/05/17 10:21 Dose: 20 mg Fentanyl (Duragesic) 12 mcg TRDERM Q72H [facility] Last Admin: 04/03/17 18:43 Dose: 12 mcg Haloperidol Lactate (Haldol) 1 mg IVPUSH Q8H PRN PRN Reason: restlessness Sodium Chloride (Normal Saline) 1,000 mls @ 100 mls/hr IV ASDIRECTED [facility] Last Admin: 04/05/17 11:22 Dose: 100 mls/hr Azithromycin 500 mg/ Sodium (Chloride) 250 mls @ 250 mls/hr IV Q24H [facility] Last Admin: 04/04/17 18:41 Dose: 250 mls/hr Ceftriaxone Sodium 2 gm/ (Sodium Chloride) 100 mls @ 200 mls/hr IV Q24H [facility] Last Admin: 04/05/17 15:19 Dose: 200 mls/hr Magnesium Oxide (Magnesium Oxide) 400 mg PO DAILY [facility] Last Admin: 04/05/17 10:21 Dose: 400 mg Miscellaneous Information (Remove Patch) 1 ea TRDERM Q72H [facility] Last Admin: 04/03/17 18:44 Dose: 1 ea Potassium Chloride (Klor-Con M20) 40 meq PO BID [facility] Stop: 04/05/17 21:01 Last Admin: 04/05/17 11:22 Dose: 40 meq Risperidone (Risperidal) 1.5 mg PO BEDTIME [facility] Last Admin: 04/04/17 20:56 Dose: 1.5 mg Senna/Docusate Sodium (Senna Plus) 2 tab PO BID [facility] Last Admin: 04/05/17 10:20 Dose: 2 tab Sodium Chloride (Saline Flush) 10 ml FLUSH ASDIRECTED PRN PRN Reason: Keep Vein Open Last Admin: 04/02/17 14:37 Dose: 10 ml Temazepam (Restoril) 15 mg PO BEDTIME PRN PRN Reason: Insomnia Discontinued Medications Acetaminophen (Tylenol) 650 mg RECTAL NOW ONE Stop: 04/02/17 14:15 Last Admin: 04/02/17 20:43 Dose: Not Given Enoxaparin Sodium (Lovenox) 30 mg SUBCUT DAILY [facility] Last Admin: 04/04/17 08:44 Dose: 30 mg Sodium Chloride (Normal Saline) 1,000 mls @ 999 mls/hr IV ONETIME ONE Stop: 04/02/17 15:04 Last Admin: 04/02/17 14:30 Dose: 999 mls/hr Sodium Chloride (Normal Saline) 500 mls @ 999 mls/hr IV ONETIME ONE Stop: 04/02/17 14:39 Last Admin: 04/02/17 15:37 Dose: 999 mls/hr Ceftriaxone Sodium 2 gm/ (Sodium Chloride) 100 mls @ 200 mls/hr IV ONETIME ONE Stop: 04/02/17 15:29 Last Admin: 04/02/17 15:07 Dose: 200 mls/hr Magnesium Sulfate 2 gm/ Premix 50 mls @ 25 mls/hr IV ONETIME ONE Stop: 04/05/17 12:54 Last Admin: 04/05/17 11:22 Dose: 25 mls/hr Ketorolac Tromethamine (Toradol) 30 mg IVPUSH ONETIME ONE Stop: 04/02/17 14:19 Ketorolac Tromethamine (Toradol) 15 mg IVPUSH ONETIME ONE Stop: 04/02/17 14:19 Last Admin: 04/02/17 14:37 Dose: 15 mg - Exam Quality Assessment: DVT Prophylaxis General: Alert, Oriented, Cooperative, No Acute Distress HEENT: Pupils Equal, Pupils Reactive, EOMI Neck: Trachea Midline, No JVD Lungs: Normal Respiratory Effort Cardiovascular: Regular Rate, Regular Rhythm GI/Abdominal Exam: Normal Bowel Sounds, Soft, Non-Tender, No Organomegaly, No Distention (Male) Exam: Deferred Back Exam: Normal Inspection Extremities: Normal Inspection Skin: Warm Neurological: No New Focal Deficit Psy/Mental Status: Alert - Problem List Review Problem List Initiated/Reviewed/Updated: Yes - My Orders Last 24 Hours: My Active Orders 04/05/17 09:00 Enoxaparin [Lovenox] 40 mg SUBCUT DAILY 04/05/17 10:57 Aspiration Precautions [RC] DAILY 04/05/17 11:00 Potassium Chloride [Klor-Con M20] 40 meq PO BID 04/05/17 Lunch Regular Diet [DIET] 04/06/17 05:00 BASIC METABOLIC PANEL,BMP [CHEM] DAILY CBC WITH AUTO DIFF [HEME] DAILY CRP [C-REACTIVE PROTEIN] [CHEM] DAILY LACTIC ACID [CHEM] DAILY MAGNESIUM [CHEM] DAILY - Plan Plan:: Impression: RLL, PNA; BC are positive with G+ cocci in chains; ID/Strep Pneumo Leukocytosis 19.8-->17.1 AMS--resolved with baseline Alzheimer dementia Mental Health Disorders -Bipolar -Schizophrenia Acute on chronic renal insufficiency (CKD stage 2-3); Cr 1.4-->1.0 Hematuria Plan: Rocephin 2gm Q 12 H, Zithromax 250 mg QD. Keep O2 Sat>92% IVF NEBs Dietary adjustment per SP Daily labs Home meds DVT/GI prophylaxis
[2017-04-05] MEDS: risperiDONE 1 MG Tab PO SCH (21:24)
--- NOTE | 2017-04-06 07:20 | PCM.PN ---
<Tanika Hare - Last Filed: 04/06/17 11:17> - General Info Date of Service: 04/06/17 Admission Dx/Problem (Free Text): Admission Diagnosis/Problem Admission Diagnosis/Problem Pneumonia Patient is seen this morning, awake and alert. Denies c/o pain/discomfort. Did not eat breakfast yet as he is not hungry. Coughing is minimal this morning. VSS, afebrile Functional Status: Reports: Pain Controlled, Tolerating Diet, Ambulating, Urinating - Review of Systems General: Denies: Fever HEENT: Reports: No Symptoms Pulmonary: Reports: Cough (minimal) Cardiovascular: Reports: No Symptoms. Denies: Chest Pain Gastrointestinal: Reports: No Symptoms. Denies: Abdominal Pain, Nausea Neurological: Reports: Other (baseline- slow to respond to questions) - Patient Data Vitals - Most Recent: Last Vital Signs Temp 98.2 F 04/06/17 05:53 Pulse 89 04/06/17 05:53 Resp 18 04/06/17 05:53 BP 144/71 H 04/06/17 05:53 Pulse Ox 94 L 04/06/17 05:53 Weight - Most Recent: 49.215 kg I&O - Last 24 Hours: Intake & Output 04/05/17 04/06/17 04/06/17 22:59 06:59 14:59 Intake Total 0 825 Balance 0 825 Lab Results Last 24 Hours: Laboratory Results - last 24 hr 04/05/17 04/05/17 Range/Units 06:00 06:00 Sodium 137 (136-145) mEq/L Potassium 3.4 L (3.5-5.1) mEq/L Chloride 103 (98-107) mEq/L Carbon Dioxide 19 L (21-32) mEq/L Anion Gap 18.4 H (5-15) BUN 11 (7-18) mg/dL Creatinine 0.8 (0.7-1.3) mg/dL Est Cr Clr Drug Dosing 61.06 mL/min Estimated GFR (MDRD) > 60 (>60) mL/min BUN/Creatinine Ratio 13.8 L (14-18) Glucose 67 L (80-115) mg/dL Lactic Acid 0.8 (0.4-2.0) mmol/L Calcium 9.2 (8.5-10.1) mg/dL Magnesium 1.5 L (1.8-2.4) mg/dl C-Reactive Protein 11.9 H* (<1.0) mg/dL Juan Results Last 24 Hours: Microbiology 04/02/17 22:15 Influenza Types A & B (PCR) - Final Nasopharynx, Unspecified Med Orders - Current: Current Medications Acetaminophen (Tylenol) 650 mg PO Q6H PRN PRN Reason: Pain/Fever Albuterol (Proventil Neb Soln) 2.5 mg NEB Q4HRRT PRN PRN Reason: Shortness of Breath Albuterol/Ipratropium (Duoneb 3.0-0.5 Mg/3 Ml) 3 ml NEB QID PRN PRN Reason: Shortness of Breath Aspirin (Aspirin) 81 mg PO DAILY [facility] Last Admin: 04/05/17 10:22 Dose: 81 mg Enoxaparin Sodium (Lovenox) 40 mg SUBCUT DAILY [facility] Last Admin: 04/05/17 10:31 Dose: 40 mg Famotidine (Pepcid) 20 mg PO DAILY [facility] Last Admin: 04/05/17 10:21 Dose: 20 mg Fentanyl (Duragesic) 12 mcg TRDERM Q72H [facility] Last Admin: 04/03/17 18:43 Dose: 12 mcg Haloperidol Lactate (Haldol) 1 mg IVPUSH Q8H PRN PRN Reason: restlessness Ceftriaxone Sodium 2 gm/ (Sodium Chloride) 100 mls @ 200 mls/hr IV Q12HR [facility] Azithromycin 250 mg/ Sodium (Chloride) 250 mls @ 250 mls/hr IV Q24H [facility] Last Admin: 04/05/17 18:13 Dose: 250 mls/hr Sodium Chloride (Normal Saline) 1,000 mls @ 50 mls/hr IV ASDIRECTED [facility] Last Admin: 04/05/17 21:24 Dose: 50 mls/hr Magnesium Oxide (Magnesium Oxide) 400 mg PO DAILY [facility] Last Admin: 04/05/17 10:21 Dose: 400 mg Miscellaneous Information (Remove Patch) 1 ea TRDERM Q72H [facility] Last Admin: 04/03/17 18:44 Dose: 1 ea Risperidone (Risperidal) 1.5 mg PO BEDTIME [facility] Last Admin: 04/05/17 21:24 Dose: 1.5 mg Senna/Docusate Sodium (Senna Plus) 2 tab PO BID [facility] Last Admin: 04/05/17 21:23 Dose: 2 tab Sodium Chloride (Saline Flush) 10 ml FLUSH ASDIRECTED PRN PRN Reason: Keep Vein Open Last Admin: 04/02/17 14:37 Dose: 10 ml Temazepam (Restoril) 15 mg PO BEDTIME PRN PRN Reason: Insomnia Discontinued Medications Acetaminophen (Tylenol) 650 mg RECTAL NOW ONE Stop: 04/02/17 14:15 Last Admin: 04/02/17 20:43 Dose: Not Given Enoxaparin Sodium (Lovenox) 30 mg SUBCUT DAILY [facility] Last Admin: 04/04/17 08:44 Dose: 30 mg Sodium Chloride (Normal Saline) 1,000 mls @ 999 mls/hr IV ONETIME ONE Stop: 04/02/17 15:04 Last Admin: 04/02/17 14:30 Dose: 999 mls/hr Sodium Chloride (Normal Saline) 500 mls @ 999 mls/hr IV ONETIME ONE Stop: 04/02/17 14:39 Last Admin: 04/02/17 15:37 Dose: 999 mls/hr Ceftriaxone Sodium 2 gm/ (Sodium Chloride) 100 mls @ 200 mls/hr IV ONETIME ONE Stop: 04/02/17 15:29 Last Admin: 04/02/17 15:07 Dose: 200 mls/hr Sodium Chloride (Normal Saline) 1,000 mls @ 100 mls/hr IV ASDIRECTED [facility] Last Admin: 04/05/17 11:22 Dose: 100 mls/hr Azithromycin 500 mg/ Sodium (Chloride) 250 mls @ 250 mls/hr IV Q24H [facility] Last Admin: 04/04/17 18:41 Dose: 250 mls/hr Ceftriaxone Sodium 2 gm/ (Sodium Chloride) 100 mls @ 200 mls/hr IV Q24H [facility] Last Admin: 04/05/17 15:19 Dose: 200 mls/hr Magnesium Sulfate 2 gm/ Premix 50 mls @ 25 mls/hr IV ONETIME ONE Stop: 04/05/17 12:54 Last Admin: 04/05/17 11:22 Dose: 25 mls/hr Azithromycin 250 mg/ Sodium (Chloride) 250 mls @ 250 mls/hr IV Q24H [facility] Last Admin: 04/05/17 19:42 Dose: Not Given Ketorolac Tromethamine (Toradol) 30 mg IVPUSH ONETIME ONE Stop: 04/02/17 14:19 Ketorolac Tromethamine (Toradol) 15 mg IVPUSH ONETIME ONE Stop: 04/02/17 14:19 Last Admin: 04/02/17 14:37 Dose: 15 mg Potassium Chloride (Klor-Con M20) 40 meq PO BID [facility] Stop: 04/05/17 21:01 Last Admin: 04/05/17 21:23 Dose: 40 meq - Exam Quality Assessment: DVT Prophylaxis General: Alert, Cooperative, No Acute Distress HEENT: Pupils Equal, EOMI, Mucous Membr. Moist/[place] Neck: Supple Lungs: Normal Respiratory Effort, Decreased Breath Sounds Cardiovascular: Regular Rate, Regular Rhythm GI/Abdominal Exam: Normal Bowel Sounds, Soft, Non-Tender (Male) Exam: Deferred Extremities: Normal Inspection, No Pedal Edema, Normal Capillary Refill Peripheral Pulses: 2+: Dorsalis Pedis (L), Dorsalis Pedis (R) Psy/Mental Status: Alert, Normal Affect, Normal Mood - Problem List & Annotations (1) Bacteremia due to Streptococcus pneumoniae SNOMED Code(s): 604649661446 Code(s): R78.81 - BACTEREMIA Status: Acute Priority: High Current Visit : Yes (2) Streptococcus pneumoniae pneumonia SNOMED Code(s): 009781134 Code(s): J13 - PNEUMONIA DUE TO STREPTOCOCCUS PNEUMONIAE Status: Acute Priority: High Current Visit: Yes QualifierTitle: Laterality: right Lung location: middle lobe of lung Qualified Code(s): J13 - Pneumonia due to Streptococcus pneumoniae (3) Alzheimer's dementia SNOMED Code(s): 45419512 Code(s): G30.9 - ALZHEIMER'S DISEASE, UNSPECIFIED Status: Chronic Priority: Medium Current Visit: No QualifierTitle: Alzheimer's disease onset: unspecified onset Dementia behavioral disturbance: without behavioral disturbance Qualified Code(s): G30.9 - Alzheimer's disease, unspecified; F02.80 - Dementia in other diseases classified elsewhere without behavioral disturbance; F02.80 - Dementia in other diseases classified elsewhere without behavioral disturbance; F02.80 - Dementia in other diseases classified elsewhere without behavioral disturbance (4) CKD (chronic kidney disease) SNOMED Code(s): 605905802 Code(s): N18.9 - CHRONIC KIDNEY DISEASE, UNSPECIFIED Status: Chronic Priority: High Current Visit: Yes (5) Schizophrenia SNOMED Code(s): 22399773 Code(s): F20.9 - SCHIZOPHRENIA, UNSPECIFIED Status: Chronic Priority: Medium Current Visit: No - Problem List Review Problem List Initiated/Reviewed/Updated: Yes - My Orders Last 24 Hours: My Active Orders 04/06/17 07:17 CULTURE BLOOD [BC] Stat CULTURE BLOOD [BC] Stat Blood Culture x2 Reflex Set [OM.PC] Stat - Plan Plan:: Impression/Plan: RLL, PNA; BC are positive with G+ cocci in chains; ID=Strep Pneumo Repeat BC today Cont Rocephin/Zithromax, good response thus far RT/IS if able/Nebs IVF: NS @50cc/hr now Negative mycoplasma, negative influenza Repeat CXR done yesterday with increase in consolidation to right lung per reports; will repeat again tomorrow. Leukocytosis 19.8-->17.1-->10.68-->6.55-->6.29 CRP also improving 16-->23-->15.6-->11.9-->9.2 Treatment as above AMS--resolved with baseline Alzheimer dementia Mental Health Disorders -- cont usual home meds -Bipolar -Schizophrenia Acute on chronic renal insufficiency (CKD stage 2-3); Cr 1.4-->1.0 -Creatinine now normalized at 0.8 -Cont to follow daily labs Hematuria--eval/workup as outpatient after discharge Mild hypokalemia--3.4 -Replete and monitor daily labs -Follow magnesium Other: Daily labs Home meds Aspiration precautions DVT/GI prophylaxis SW for assist with DC planning- Plan back to [place] when ready- likely 2-3 more days LOS is >96 hours due to repeat blood cultures for bacteremia pending, slower than expected course of improvement with PNA/Bacteremia. Patient is DNR code status. <Shivani Waite - Last Filed: 04/06/17 14:15> - Patient Data Vitals - Most Recent: Last Vital Signs Temp 36.8 C 04/06/17 11:10 Pulse 103 H 04/06/17 11:10 Resp 14 04/06/17 11:10 BP 143/75 H 04/06/17 11:10 Pulse Ox 95 04/06/17 11:10 I&O - Last 24 Hours: Intake & Output 04/05/17 04/06/17 04/06/17 22:59 06:59 14:59 Intake Total 0 825 80 Balance 0 825 80 Lab Results Last 24 Hours: Laboratory Results - last 24 hr 04/06/17 04/06/17 04/06/17 Range/Units 06:45 06:45 06:45 WBC 6.28 (4.23-9.07) K/mm3 RBC 3.37 L (4.63-6.08) M/mm3 Hgb 10.8 L (13.7-17.5) gm/L Hct 33.3 L (40.1-51.0) % MCV 98.8 H (79.0-92.2) fl MCH 32.0 (25.7-32.2) pg MCHC 32.4 (32.2-35.5) g/dl RDW Std Deviation 42.3 (35.1-43.9) fL Plt Count 331 (163-337) K/mm3 MPV 9.8 (9.4-12.3) fl Neut % (Auto) 69.0 H (34.0-67.9) % Lymph % (Auto) 15.8 L (21.8-53.1) % [place] % (Auto) 12.4 H (5.3-12.2) % Eos % (Auto) 2.1 (0.8-7.0) Baso % (Auto) 0.2 (0.1-1.2) % Neut # (Auto) 4.34 (1.78-5.38) K/mm3 Lymph # (Auto) 0.99 L (1.32-3.57) K/mm3 [place] # (Auto) 0.78 (0.30-0.82) K/mm3 Eos # (Auto) 0.13 (0.04-0.54) K/mm3 Baso # (Auto) 0.01 (0.01-0.08) K/mm3 Sodium 139 (136-145) mEq/L Potassium 3.8 (3.5-5.1) mEq/L Chloride 104 (98-107) mEq/L Carbon Dioxide 22 (21-32) mEq/L Anion Gap 16.8 H (5-15) BUN 10 (7-18) mg/dL Creatinine 0.9 (0.7-1.3) mg/dL Est Cr Clr Drug Dosing 53.92 mL/min Estimated GFR (MDRD) > 60 (>60) mL/min BUN/Creatinine Ratio 11.1 L (14-18) Glucose 90 (80-115) mg/dL Lactic Acid 0.8 (0.4-2.0) mmol/L Calcium 9.5 (8.5-10.1) mg/dL Magnesium 1.9 (1.8-2.4) mg/dl C-Reactive Protein 9.2 H* (<1.0) mg/dL Juan Results Last 24 Hours: Microbiology 04/02/17 22:15 Influenza Types A & B (PCR) - Final Nasopharynx, Unspecified Med Orders - Current: Current Medications Acetaminophen (Tylenol) 650 mg PO Q6H PRN PRN Reason: Pain/Fever Albuterol (Proventil Neb Soln) 2.5 mg NEB Q4HRRT PRN PRN Reason: Shortness of Breath Albuterol/Ipratropium (Duoneb 3.0-0.5 Mg/3 Ml) 3 ml NEB Q6HRRT [facility] Last Admin: 04/06/17 09:38 Dose: 3 ml Aspirin (Aspirin) 81 mg PO DAILY [facility] Last Admin: 04/06/17 09:30 Dose: 81 mg Azithromycin (Zithromax) 500 mg PO Q24H [facility] Enoxaparin Sodium (Lovenox) 40 mg SUBCUT DAILY [facility] Last Admin: 04/06/17 09:31 Dose: 40 mg Famotidine (Pepcid) 20 mg PO DAILY [facility] Last Admin: 04/06/17 09:29 Dose: 20 mg Fentanyl (Duragesic) 12 mcg TRDERM Q72H [facility] Last Admin: 04/03/17 18:43 Dose: 12 mcg Guaifenesin (Mucinex) 1,200 mg PO BID [facility] Last Admin: 04/06/17 09:30 Dose: 1,200 mg Haloperidol Lactate (Haldol) 1 mg IVPUSH Q8H PRN PRN Reason: restlessness Ceftriaxone Sodium 2 gm/ (Sodium Chloride) 100 mls @ 200 mls/hr IV Q12HR [facility] Last Admin: 04/06/17 09:32 Dose: 200 mls/hr Sodium Chloride (Normal Saline) 1,000 mls @ 50 mls/hr IV ASDIRECTED [facility] Last Admin: 04/05/17 21:24 Dose: 50 mls/hr Magnesium Oxide (Magnesium Oxide) 400 mg PO DAILY [facility] Last Admin: 04/06/17 09:30 Dose: 400 mg Miscellaneous Information (Remove Patch) 1 ea TRDERM Q72H [facility] Last Admin: 04/03/17 18:44 Dose: 1 ea Risperidone (Risperidal) 1.5 mg PO BEDTIME [facility] Last Admin: 04/05/17 21:24 Dose: 1.5 mg Saccharomyces Boulardii (Florastor) 250 mg PO BID [facility] Last Admin: 04/06/17 09:29 Dose: 250 mg Senna/Docusate Sodium (Senna Plus) 2 tab PO BID [facility] Last Admin: 04/06/17 09:30 Dose: 2 tab Sodium Chloride (Saline Flush) 10 ml FLUSH ASDIRECTED PRN PRN Reason: Keep Vein Open Last Admin: 04/02/17 14:37 Dose: 10 ml Temazepam (Restoril) 15 mg PO BEDTIME PRN PRN Reason: Insomnia Discontinued Medications Acetaminophen (Tylenol) 650 mg RECTAL NOW ONE Stop: 04/02/17 14:15 Last Admin: 04/02/17 20:43 Dose: Not Given Albuterol/Ipratropium (Duoneb 3.0-0.5 Mg/3 Ml) 3 ml NEB QID PRN PRN Reason: Shortness of Breath Enoxaparin Sodium (Lovenox) 30 mg SUBCUT DAILY [facility] Last Admin: 04/04/17 08:44 Dose: 30 mg Sodium Chloride (Normal Saline) 1,000 mls @ 999 mls/hr IV ONETIME ONE Stop: 04/02/17 15:04 Last Admin: 04/02/17 14:30 Dose: 999 mls/hr Sodium Chloride (Normal Saline) 500 mls @ 999 mls/hr IV ONETIME ONE Stop: 04/02/17 14:39 Last Admin: 04/02/17 15:37 Dose: 999 mls/hr Ceftriaxone Sodium 2 gm/ (Sodium Chloride) 100 mls @ 200 mls/hr IV ONETIME ONE Stop: 04/02/17 15:29 Last Admin: 04/02/17 15:07 Dose: 200 mls/hr Sodium Chloride (Normal Saline) 1,000 mls @ 100 mls/hr IV ASDIRECTED [facility] Last Admin: 04/05/17 11:22 Dose: 100 mls/hr Azithromycin 500 mg/ Sodium (Chloride) 250 mls @ 250 mls/hr IV Q24H [facility] Last Admin: 04/04/17 18:41 Dose: 250 mls/hr Ceftriaxone Sodium 2 gm/ (Sodium Chloride) 100 mls @ 200 mls/hr IV Q24H [facility] Last Admin: 04/05/17 15:19 Dose: 200 mls/hr Magnesium Sulfate 2 gm/ Premix 50 mls @ 25 mls/hr IV ONETIME ONE Stop: 04/05/17 12:54 Last Admin: 04/05/17 11:22 Dose: 25 mls/hr Azithromycin 250 mg/ Sodium (Chloride) 250 mls @ 250 mls/hr IV Q24H [facility] Last Admin: 04/05/17 19:42 Dose: Not Given Azithromycin 250 mg/ Sodium (Chloride) 250 mls @ 250 mls/hr IV Q24H [facility] Last Admin: 04/05/17 18:13 Dose: 250 mls/hr Ketorolac Tromethamine (Toradol) 30 mg IVPUSH ONETIME ONE Stop: 04/02/17 14:19 Ketorolac Tromethamine (Toradol) 15 mg IVPUSH ONETIME ONE Stop: 04/02/17 14:19 Last Admin: 04/02/17 14:37 Dose: 15 mg Potassium Chloride (Klor-Con M20) 40 meq PO BID [facility] Stop: 04/05/17 21:01 Last Admin: 04/05/17 21:23 Dose: 40 meq - My Orders Last 24 Hours: My Active Orders 04/05/17 20:44 Sodium Chloride 0.9% [Normal Saline] 1,000 ml IV ASDIRECTED 04/06/17 09:00 cefTRIAXone [Rocephin] 2 gm Sodium Chloride 0.9% [Normal Saline] 100 ml IV Q12HR
[2017-04-06] MEDS: Famotidine 20 MG Tab PO SCH (09:29)
[2017-04-06] MEDS: Saccharomyces Boulardii (Probiotic) 250 MG Cap PO SCH ×2 (09:29→20:34)
[2017-04-06] MEDS: Magnesium Oxide 400 MG Tab PO SCH (09:30)
[2017-04-06] MEDS: Aspirin 81 MG Tab.Chew PO SCH (09:30)
[2017-04-06] MEDS: guaiFENesin 600 MG Tab.ER PO SCH ×2 (09:30→20:35)
[2017-04-06] MEDS: Enoxaparin 40 MG/0.4 ML Syringe SUBCUT SCH (09:31)
[2017-04-06] MEDS: cefTRIAXone 2 GM in Sodium Chloride 0.9% 100 ML IV SCH ×2 (09:32→20:33)
[2017-04-06] MEDS: Albuterol/Ipratropium 3.0-0.5 MG/3 ML Neb Soln NEB SCH ×3 (09:38→21:50)
[2017-04-06] MEDS ORDERED: Azithromycin 250 MG Tab PO SCH (15:00)
[2017-04-06] MEDS ORDERED: hydrALAZINE 20 MG/ML SDV IVPUSH PRN (16:03)
[2017-04-06] MEDS: Sodium Chloride 0.9% 1,000 ML IV SCH (16:32)
[2017-04-06] MEDS: fentaNYL 12 MCG/HR Transdermal Patch TRDERM SCH (18:29)
[2017-04-06] MEDS: REMOVE FENTANYL TRDERM SCH (18:34)
[2017-04-06] MEDS: risperiDONE 1 MG Tab PO SCH (20:35)
[2017-04-06] MEDS ORDERED: Metoprolol Tartrate 5 MG/5 ML SDV IVPUSH PRN (21:00)
[2017-04-06] MEDS ORDERED: Levofloxacin/Dextrose 5%-Water 750 MG in Premix Bag 1 BAG IV SCH (21:00)
[2017-04-06] MEDS ORDERED: Ibuprofen 600 MG Tab PO PRN (21:02)
[2017-04-06] MEDS ORDERED: Haloperidol Lactate 5 MG/ML SDV IVPUSH PRN (21:10)
[2017-04-07] MEDS: Albuterol/Ipratropium 3.0-0.5 MG/3 ML Neb Soln NEB SCH ×4 (03:10→20:06)
[2017-04-07] MEDS: Famotidine 20 MG Tab PO SCH (08:19)
[2017-04-07] MEDS: Aspirin 81 MG Tab.Chew PO SCH (08:19)
--- NOTE | 2017-04-07 08:19 | PCM.PN ---
- General Info Date of Service: 04/07/17 Admission Dx/Problem (Free Text): Admission Diagnosis/Problem Admission Diagnosis/Problem Pneumonia Patient is seen this morning, awake and alert, resting comfortably in bed. Denies c/o pain/discomfort. Coughing is minimal this morning. He had a bout of increased anxiety last evening, tachycardia. This has all resolved with very stable and improving labs this morning. He is doing well today. VSS, afebrile Functional Status: Reports: Pain Controlled, Tolerating Diet, Urinating. Denies : New Symptoms - Review of Systems General: Reports: Weakness (improving). Denies: Fever HEENT: Reports: No Symptoms Pulmonary: Reports: Cough (improving). Denies: Shortness of Breath, Sputum Cardiovascular: Reports: No Symptoms. Denies: Chest Pain, Palpitations (does not feel tachycardia) Gastrointestinal: Reports: No Symptoms. Denies: Abdominal Pain Psychiatric: Reports: Anxiety (overnight and last evening, is more calm and relaxed this morning.) - Patient Data Vitals - Most Recent: Last Vital Signs Temp 97.9 F 04/07/17 04:31 Pulse 105 H 04/07/17 04:31 Resp 18 04/07/17 04:31 BP 141/68 H 04/07/17 04:31 Pulse Ox 95 04/07/17 04:31 Weight - Most Recent: 106 lb 3 oz I&O - Last 24 Hours: Intake & Output 04/06/17 04/07/17 04/07/17 22:59 06:59 14:59 Intake Total 629 740 Balance 629 740 Lab Results Last 24 Hours: Laboratory Results - last 24 hr 04/06/17 04/06/17 04/07/17 Range/Units 06:45 06:45 06:03 WBC 6.28 8.74 (4.23-9.07) K/mm3 RBC 3.37 L 3.39 L (4.63-6.08) M/mm3 Hgb 10.8 L 11.0 L (13.7-17.5) gm/L Hct 33.3 L 33.4 L (40.1-51.0) % MCV 98.8 H 98.5 H (79.0-92.2) fl MCH 32.0 32.4 H (25.7-32.2) pg MCHC 32.4 32.9 (32.2-35.5) g/dl RDW Std Deviation 42.3 42.2 (35.1-43.9) fL Plt Count 331 340 H (163-337) K/mm3 MPV 9.8 9.5 (9.4-12.3) fl Neut % (Auto) 69.0 H Cancelled (34.0-67.9) % Lymph % (Auto) 15.8 L Cancelled (21.8-53.1) % Hand % (Auto) 12.4 H Cancelled (5.3-12.2) % Eos % (Auto) 2.1 Cancelled (0.8-7.0) Baso % (Auto) 0.2 Cancelled (0.1-1.2) % Neut # (Auto) 4.34 Cancelled (1.78-5.38) K/mm3 Lymph # (Auto) 0.99 L Cancelled (1.32-3.57) K/mm3 Hand # (Auto) 0.78 Cancelled (0.30-0.82) K/mm3 Eos # (Auto) 0.13 Cancelled (0.04-0.54) K/mm3 Baso # (Auto) 0.01 Cancelled (0.01-0.08) K/mm3 Neutrophils % (Manual) 71 H (40-60) % Band Neutrophils % 6 (0-10) % Lymphocytes % (Manual) 18 L (20-40) % Atypical Lymphs % 0 % Monocytes % (Manual) 3 (2-10) % Eosinophils % (Manual) 1 (0.8-7.0) % Basophils % (Manual) 0 L (0.2-1.2) Metamyelocytes % 1 Differential Comment See note Manual Slide Review Cancelled Toxic Granulation 1+ slight Platelet Estimate Adequate RBC Morph Comment Normal Sodium 139 (136-145) mEq/L Potassium 3.8 (3.5-5.1) mEq/L Chloride 104 (98-107) mEq/L Carbon Dioxide 22 (21-32) mEq/L Anion Gap 16.8 H (5-15) BUN 10 (7-18) mg/dL Creatinine 0.9 (0.7-1.3) mg/dL Est Cr Clr Drug Dosing 53.92 mL/min Estimated GFR (MDRD) > 60 (>60) mL/min BUN/Creatinine Ratio 11.1 L (14-18) Glucose 90 (80-115) mg/dL Calcium 9.5 (8.5-10.1) mg/dL Magnesium 1.9 (1.8-2.4) mg/dl C-Reactive Protein 9.2 H* (<1.0) mg/dL 04/07/17 Range/Units 06:03 WBC (4.23-9.07) K/mm3 RBC (4.63-6.08) M/mm3 Hgb (13.7-17.5) gm/L Hct (40.1-51.0) % MCV (79.0-92.2) fl MCH (25.7-32.2) pg MCHC (32.2-35.5) g/dl RDW Std Deviation (35.1-43.9) fL Plt Count (163-337) K/mm3 MPV (9.4-12.3) fl Neut % (Auto) (34.0-67.9) % Lymph % (Auto) (21.8-53.1) % Hand % (Auto) (5.3-12.2) % Eos % (Auto) (0.8-7.0) Baso % (Auto) (0.1-1.2) % Neut # (Auto) (1.78-5.38) K/mm3 Lymph # (Auto) (1.32-3.57) K/mm3 Hand # (Auto) (0.30-0.82) K/mm3 Eos # (Auto) (0.04-0.54) K/mm3 Baso # (Auto) (0.01-0.08) K/mm3 Neutrophils % (Manual) (40-60) % Band Neutrophils % (0-10) % Lymphocytes % (Manual) (20-40) % Atypical Lymphs % % Monocytes % (Manual) (2-10) % Eosinophils % (Manual) (0.8-7.0) % Basophils % (Manual) (0.2-1.2) Metamyelocytes % Differential Comment Manual Slide Review Toxic Granulation Platelet Estimate RBC Morph Comment Sodium 139 (136-145) mEq/L Potassium 3.7 (3.5-5.1) mEq/L Chloride 103 (98-107) mEq/L Carbon Dioxide 23 (21-32) mEq/L Anion Gap 16.7 H (5-15) BUN 9 (7-18) mg/dL Creatinine 1.0 (0.7-1.3) mg/dL Est Cr Clr Drug Dosing 47.50 mL/min Estimated GFR (MDRD) > 60 (>60) mL/min BUN/Creatinine Ratio 9.0 L (14-18) Glucose 96 (80-115) mg/dL Calcium 9.4 (8.5-10.1) mg/dL Magnesium 1.6 L (1.8-2.4) mg/dl C-Reactive Protein 7.9 H* (<1.0) mg/dL Juan Results Last 24 Hours: Microbiology 04/06/17 07:55 Aerobic Blood Culture - Preliminary Blood - Venous NO GROWTH AFTER 1 DAY Anaerobic Blood Culture - Final 04/06/17 08:08 Aerobic Blood Culture - Preliminary Blood - Venous - Lab Draw NO GROWTH AFTER 1 DAY Anaerobic Blood Culture - Preliminary NO GROWTH AFTER 1 DAY Med Orders - Current: Current Medications Acetaminophen (Tylenol) 650 mg PO Q6H PRN PRN Reason: Pain/Fever Last Admin: 04/06/17 20:34 Dose: 650 mg Albuterol (Proventil Neb Soln) 2.5 mg NEB Q4HRRT PRN PRN Reason: Shortness of Breath Albuterol/Ipratropium (Duoneb 3.0-0.5 Mg/3 Ml) 3 ml NEB Q6HRRT PENDING SALE TO [facility] Last Admin: 04/07/17 03:10 Dose: 3 ml Aspirin (Aspirin) 81 mg PO DAILY PENDING SALE TO [facility] Last Admin: 04/06/17 09:30 Dose: 81 mg Azithromycin (Zithromax) 500 mg PO Q24H PENDING SALE TO [facility] Last Admin: 04/06/17 16:27 Dose: 500 mg Enoxaparin Sodium (Lovenox) 40 mg SUBCUT DAILY PENDING SALE TO [facility] Last Admin: 04/06/17 09:31 Dose: 40 mg Famotidine (Pepcid) 20 mg PO DAILY PENDING SALE TO [facility] Last Admin: 04/06/17 09:29 Dose: 20 mg Fentanyl (Duragesic) 12 mcg TRDERM Q72H PENDING SALE TO [facility] Last Admin: 04/06/17 18:29 Dose: 12 mcg Guaifenesin (Mucinex) 1,200 mg PO BID PENDING SALE TO [facility] Last Admin: 04/06/17 20:35 Dose: 1,200 mg Haloperidol Lactate (Haldol) 1 mg IVPUSH Q6H PRN PRN Reason: restlessness Hydralazine HCl (Apresoline) 10 mg IVPUSH Q6H PRN PRN Reason: Hypertension Last Admin: 04/06/17 16:35 Dose: 10 mg Ceftriaxone Sodium 2 gm/ (Sodium Chloride) 100 mls @ 200 mls/hr IV Q12HR PENDING SALE TO [facility] Last Admin: 04/06/17 20:33 Dose: 200 mls/hr Levofloxacin/Dextrose 750 mg/ (Premix) 150 mls @ 100 mls/hr IV Q24H PENDING SALE TO [facility] Last Admin: 04/06/17 21:15 Dose: 100 mls/hr Ibuprofen (Motrin) 600 mg PO Q6H PRN PRN Reason: Pain/Fever Magnesium Oxide (Magnesium Oxide) 400 mg PO DAILY PENDING SALE TO [facility] Last Admin: 04/06/17 09:30 Dose: 400 mg Magnesium Oxide (Magnesium Oxide) 800 mg PO DAILY PENDING SALE TO [facility] Metoprolol Tartrate (Lopressor) 5 mg IVPUSH Q4H PRN PRN Reason: HR >120 Last Admin: 04/06/17 21:15 Dose: 5 mg Miscellaneous Information (Remove Patch) 1 ea TRDERM Q72H PENDING SALE TO [facility] Last Admin: 04/06/17 18:34 Dose: 1 ea Risperidone (Risperidal) 1.5 mg PO BEDTIME PENDING SALE TO [facility] Last Admin: 04/06/17 20:35 Dose: 1.5 mg Saccharomyces Boulardii (Florastor) 250 mg PO BID PENDING SALE TO [facility] Last Admin: 04/06/17 20:34 Dose: 250 mg Senna/Docusate Sodium (Senna Plus) 2 tab PO BID PENDING SALE TO [facility] Last Admin: 04/06/17 20:34 Dose: 2 tab Sodium Chloride (Saline Flush) 10 ml FLUSH ASDIRECTED PRN PRN Reason: Keep Vein Open Last Admin: 04/02/17 14:37 Dose: 10 ml Temazepam (Restoril) 15 mg PO BEDTIME PRN PRN Reason: Insomnia Discontinued Medications Acetaminophen (Tylenol) 650 mg RECTAL NOW ONE Stop: 04/02/17 14:15 Last Admin: 04/02/17 20:43 Dose: Not Given Albuterol/Ipratropium (Duoneb 3.0-0.5 Mg/3 Ml) 3 ml NEB QID PRN PRN Reason: Shortness of Breath Enoxaparin Sodium (Lovenox) 30 mg SUBCUT DAILY PENDING SALE TO [facility] Last Admin: 04/04/17 08:44 Dose: 30 mg Haloperidol Lactate (Haldol) 1 mg IVPUSH Q8H PRN PRN Reason: restlessness Sodium Chloride (Normal Saline) 1,000 mls @ 999 mls/hr IV ONETIME ONE Stop: 04/02/17 15:04 Last Admin: 04/02/17 14:30 Dose: 999 mls/hr Sodium Chloride (Normal Saline) 500 mls @ 999 mls/hr IV ONETIME ONE Stop: 04/02/17 14:39 Last Admin: 04/02/17 15:37 Dose: 999 mls/hr Ceftriaxone Sodium 2 gm/ (Sodium Chloride) 100 mls @ 200 mls/hr IV ONETIME ONE Stop: 04/02/17 15:29 Last Admin: 04/02/17 15:07 Dose: 200 mls/hr Sodium Chloride (Normal Saline) 1,000 mls @ 100 mls/hr IV ASDIRECTED PENDING SALE TO [facility] Last Admin: 04/05/17 11:22 Dose: 100 mls/hr Azithromycin 500 mg/ Sodium (Chloride) 250 mls @ 250 mls/hr IV Q24H PENDING SALE TO [facility] Last Admin: 04/04/17 18:41 Dose: 250 mls/hr Ceftriaxone Sodium 2 gm/ (Sodium Chloride) 100 mls @ 200 mls/hr IV Q24H PENDING SALE TO [facility] Last Admin: 04/05/17 15:19 Dose: 200 mls/hr Magnesium Sulfate 2 gm/ Premix 50 mls @ 25 mls/hr IV ONETIME ONE Stop: 04/05/17 12:54 Last Admin: 04/05/17 11:22 Dose: 25 mls/hr Azithromycin 250 mg/ Sodium (Chloride) 250 mls @ 250 mls/hr IV Q24H PENDING SALE TO [facility] Last Admin: 04/05/17 19:42 Dose: Not Given Azithromycin 250 mg/ Sodium (Chloride) 250 mls @ 250 mls/hr IV Q24H PENDING SALE TO [facility] Last Admin: 04/05/17 18:13 Dose: 250 mls/hr Sodium Chloride (Normal Saline) 1,000 mls @ 50 mls/hr IV ASDIRECTED PENDING SALE TO [facility] Last Admin: 04/06/17 16:32 Dose: 50 mls/hr Ketorolac Tromethamine (Toradol) 30 mg IVPUSH ONETIME ONE Stop: 04/02/17 14:19 Ketorolac Tromethamine (Toradol) 15 mg IVPUSH ONETIME ONE Stop: 04/02/17 14:19 Last Admin: 04/02/17 14:37 Dose: 15 mg Potassium Chloride (Klor-Con M20) 40 meq PO BID KATIE Stop: 04/05/17 21:01 Last Admin: 04/05/17 21:23 Dose: 40 meq - Exam Quality Assessment: DVT Prophylaxis General: Alert, Cooperative, No Acute Distress HEENT: Pupils Equal, EOMI, Mucous Membr. Moist/[place] Neck: Supple Lungs: Normal Respiratory Effort, Decreased Breath Sounds, Other (minimal inspiratory effort- not able to follow command for deep breaths today) Cardiovascular: Regular Rate, Regular Rhythm GI/Abdominal Exam: Normal Bowel Sounds, Soft, Non-Tender (Male) Exam: Deferred Extremities: No Pedal Edema, Normal Capillary Refill Psy/Mental Status: Alert, Normal Affect, Normal Mood - Problem List & Annotations (1) Bacteremia due to Streptococcus pneumoniae SNOMED Code(s): 813283995688 Code(s): R78.81 - BACTEREMIA Status: Acute Priority: High Current Visit : Yes (2) Streptococcus pneumoniae pneumonia SNOMED Code(s): 459618845 Code(s): J13 - PNEUMONIA DUE TO STREPTOCOCCUS PNEUMONIAE Status: Acute Priority: High Current Visit: Yes Qualifiers: Laterality: right Lung location: middle lobe of lung Qualified Code(s): J13 - Pneumonia due to Streptococcus pneumoniae (3) Alzheimer's dementia SNOMED Code(s): 94659385 Code(s): G30.9 - ALZHEIMER'S DISEASE, UNSPECIFIED Status: Chronic Priority: Medium Current Visit: No Qualifiers: Alzheimer's disease onset: unspecified onset Dementia behavioral disturbance: without behavioral disturbance Qualified Code(s): G30.9 - Alzheimer's disease, unspecified; F02.80 - Dementia in other diseases classified elsewhere without behavioral disturbance; F02.80 - Dementia in other diseases classified elsewhere without behavioral disturbance; F02.80 - Dementia in other diseases classified elsewhere without behavioral disturbance (4) CKD (chronic kidney disease) SNOMED Code(s): 674971103 Code(s): N18.9 - CHRONIC KIDNEY DISEASE, UNSPECIFIED Status: Chronic Priority: High Current Visit: Yes (5) Schizophrenia SNOMED Code(s): 23787154 Code(s): F20.9 - SCHIZOPHRENIA, UNSPECIFIED Status: Chronic Priority: Medium Current Visit: No - Problem List Review Problem List Initiated/Reviewed/Updated: Yes - My Orders Last 24 Hours: My Active Orders 04/06/17 07:17 Blood Culture x2 Reflex Set [OM.PC] Stat 04/06/17 07:45 RT Flutter Valve Therapy [RT Acapella] [RESPCARE] Routine 04/06/17 07:46 RT Aerosol Therapy [RC] ASDIRECTED 04/06/17 07:55 CULTURE BLOOD [BC] Stat 04/06/17 08:08 CULTURE BLOOD [BC] Stat 04/06/17 09:00 Albuterol/Ipratropium [DuoNeb 3.0-0.5 MG/3 ML] 3 ml NEB Q6HRRT Saccharomyces Boulardii [Florastor] 250 mg PO BID guaiFENesin [Mucinex] 1,200 mg PO BID 04/06/17 15:00 Azithromycin [Zithromax] 500 mg PO Q24H 04/07/17 08:00 Chest 2V [CR] Routine 04/07/17 12:00 Magnesium Oxide 800 mg PO DAILY 04/08/17 05:11 BASIC METABOLIC PANEL,BMP [CHEM] AM C-REACTIVE PROTEIN [CHEM] AM CBC WITH AUTO DIFF [HEME] AM MAGNESIUM [CHEM] AM 04/08/17 08:00 Chest 2V [CR] Routine 04/09/17 05:11 BASIC METABOLIC PANEL,BMP [CHEM] AM C-REACTIVE PROTEIN [CHEM] AM CBC WITH AUTO DIFF [HEME] AM MAGNESIUM [CHEM] AM - Plan Plan:: Impression/Plan: RLL, PNA; BC are positive with G+ cocci in chains; ID=Strep Pneumo Repeat BC - negative thus far Cont Rocephin/Zithromax, good response thus far; Dr. Waite had added levaquin last evening as patient had low grade temp and tachycardia, now resolved. Will DC levaquin today after review with her on rounding. RT/IS if able/Nebs IVF: NS @50cc/hr now----DC'd last evening, may have contributed to tachycardia with ? mild fluid overload. Negative mycoplasma, negative influenza Repeat CXR done with increase in consolidation to right lung per reports; will repeat again this morning--->>Stable findings. Leukocytosis 19.8-->17.1-->10.68-->6.55-->6.29-->8.74 CRP also improving 16-->23-->15.6-->11.9-->9.2--7.9 Treatment as above AMS--resolved with baseline Alzheimer dementia Mental Health Disorders -- cont usual home meds---no behavioral disturbance thus far during hospital stay -Bipolar -Schizophrenia Acute on chronic renal insufficiency (CKD stage 2-3); Cr 1.4-->1.0 -Creatinine now normalized at 0.8 -Cont to follow daily labs Hematuria--eval/workup as outpatient after discharge Mild hypokalemia--3.4--resolved -Replete and monitor daily labs -Follow magnesium Mild hypomagnesemia--1.6 -Continue daily 400mg dose; add 800mg PO today at noon -Recheck in am Other: Daily labs Home meds Aspiration precautions DVT/GI prophylaxis SW for assist with DC planning- Plan back to [place] when ready- likely DC tomorrow pending final BC results. LOS is >96 hours due to repeat blood cultures for bacteremia pending, slower than expected course of improvement with PNA/Bacteremia. Patient is DNR code status. PCP is Dr. Steve
[2017-04-07] MEDS: Saccharomyces Boulardii (Probiotic) 250 MG Cap PO SCH ×2 (08:21→22:46)
[2017-04-07] MEDS: Magnesium Oxide 400 MG Tab PO SCH ×2 (08:22→11:38)
[2017-04-07] MEDS: guaiFENesin 600 MG Tab.ER PO SCH ×2 (08:23→22:45)
[2017-04-07] MEDS: Enoxaparin 40 MG/0.4 ML Syringe SUBCUT SCH (08:30)
[2017-04-07] MEDS ORDERED: Furosemide 20 MG/2 ML VIAL IVPUSH ONE (08:35)
[2017-04-07] MEDS: cefTRIAXone 2 GM in Sodium Chloride 0.9% 100 ML IV SCH ×2 (09:51→22:45)
--- NOTE | 2017-04-07 10:36 | CR ---
Chest: Two views of the chest were obtained. Comparison: Prior chest x-ray of 04/05/17. Continuing opacity within the right mid and lower lung is seen. Findings remain fairly stable from previous exam. Left lung is clear. Heart size and mediastinum are stable. Bony structures are unremarkable for the patient's age. Impression: 1. Stable findings within the right side of the chest when compared to most recent exam. Diagnostic code #3
[2017-04-07] MEDS: Sodium Chloride 0.45% 1,000 ML IV SCH ×2 (19:18→19:58)
[2017-04-07] MEDS ORDERED: Sodium Chloride 0.45% 500 ML IV ONE (19:45)
[2017-04-07] MEDS: risperiDONE 1 MG Tab PO SCH (22:44)
[2017-04-08] MEDS: Albuterol/Ipratropium 3.0-0.5 MG/3 ML Neb Soln NEB SCH ×2 (03:14→08:43)
--- NOTE | 2017-04-08 07:37 | PCM.DCSUM1 ---
Discharge Summary - Hospital Course Free Text/Narrative:: 67 year old SNF resident presents after spiking a temperature. He is unable to give a history. Baseline Alzheimers dementia and possibly Schizophrenia is documented. Decrease activity with elevated temps have reportedly been documented for three days [employer]IN ENGINE[employer]. He has had a cough, generalized weakness and a decreased appetite. Temperature recorded today is 104.4F at [facility] in [place] ; there appears to be an infiltrate in the right lower lobe. He is being admitted for pneumonia with acute confusion. - Discharge Data Discharge Date: 04/08/17 (admit date 04/02/17) Discharge Disposition: DC/Tfer to SNF 03 Condition: Fair - Discharge Diagnosis/Problem(s) (1) Bacteremia due to Streptococcus pneumoniae SNOMED Code(s): 416952953595 ICD Code: R78.81 - BACTEREMIA Status: Resolved Priority: High Current Visit: Yes (2) Streptococcus pneumoniae pneumonia SNOMED Code(s): 213532677 ICD Code: J13 - PNEUMONIA DUE TO STREPTOCOCCUS PNEUMONIAE Status: Acute Priority: High Current Visit: Yes Qualifiers: Laterality: right Lung location: middle lobe of lung Qualified Code(s): J13 - Pneumonia due to Streptococcus pneumoniae (3) Alzheimer's dementia SNOMED Code(s): 71636539 ICD Code: G30.9 - ALZHEIMER'S DISEASE, UNSPECIFIED Status: Chronic Priority: Medium Current Visit: No Qualifiers: Alzheimer's disease onset: unspecified onset Dementia behavioral disturbance: without behavioral disturbance Qualified Code(s): G30.9 - Alzheimer's disease, unspecified; F02.80 - Dementia in other diseases classified elsewhere without behavioral disturbance; F02.80 - Dementia in other diseases classified elsewhere without behavioral disturbance; F02.80 - Dementia in other diseases classified elsewhere without behavioral disturbance (4) CKD (chronic kidney disease) SNOMED Code(s): 582582568 ICD Code: N18.9 - CHRONIC KIDNEY DISEASE, UNSPECIFIED Status: Chronic Priority: High Current Visit: Yes (5) Schizophrenia SNOMED Code(s): 42311068 ICD Code: F20.9 - SCHIZOPHRENIA, UNSPECIFIED Status: Chronic Priority: Medium Current Visit: No - Patient Summary/Data Operative Procedure(s) Performed: None Complications: None Consults: Consultations 04/03/17 14:38 Consult to Speech Language Pathology [SUPERVISOR MAJOR [employer]PLIANCE ASSEMBLY Evaluation and Treatment] [CONS] Routine Labs Pending at D/C: None Recommended Follow-up Testing/Procedures: Patient DC instructions: Recommend oral intake regular solids, thin liquids, meds crushed with puree/ pudding, 1:1 assist for feeding, upright 90 degrees, slow rate, small bites/sips , alternate bites/sips. PER SUPERVISOR MAJOR APPLIANCE ASSEMBLY, Cont with SUPERVISOR MAJOR APPLIANCE ASSEMBLY/consult SUPERVISOR MAJOR APPLIANCE ASSEMBLY after discharge for continued eval/recommendations. Push Fluids Follow up with PCP, Dr. Steve within one week of discharge. Planned Operative Procedure(s) after DC: None Hospital Course: Impression/Plan: RLL, PNA; BC are positive with G+ cocci in chains; ID=Strep Pneumo---Resolved Repeat BC - negative Cont Rocephin/Zithromax, good response. Will DC on PO Levaquin, also sensitive. RT/IS if able/Nebs Negative mycoplasma, negative influenza Initial Repeat CXR done with increase in consolidation to right lung per reports; Repeat yesterday with--->>Stable findings. Leukocytosis 19.8-->17.1-->10.68-->6.55-->6.29-->8.74 CRP also improving 16-->23-->15.6-->11.9-->9.2--7.9 Treatment as above AMS--resolved with baseline Alzheimer dementia Mental Health Disorders -- cont usual home meds---no behavioral disturbance thus far during hospital stay -Bipolar -Schizophrenia Acute on chronic renal insufficiency (CKD stage 2-3); Cr 1.4-->1.0 -Creatinine now normalized at 0.8 -Cont to follow daily labs Hematuria--eval/workup as outpatient after discharge -Follow up with PCP for this Mild hypokalemia--3.4--resolved -Replete and monitor daily labs -Follow magnesium Mild hypomagnesemia--1.6--resolved -Continue daily 400mg dose; add 800mg PO today at noon---DC dose of mag ox 400mg BID -Recheck in am Other: Daily labs Home meds Aspiration precautions--Cont with SUPERVISOR MAJOR [employer]PLIANCE ASSEMBLY to eval/tx after discharge DVT/GI prophylaxis SW for assist with DC planning- Plan back to [facility] when ready- DC today. LOS is >96 hours due to repeat blood cultures for bacteremia pending, slower than expected course of improvement with PNA/Bacteremia. Patient is DNR code status. PCP is Dr. Steve - Patient Instructions Diet: Usual Diet as Tolerated, Drink 8-10+ Glasses/Day Activity: As Tolerated Driving: Do Not Drive Showering/Bathing: May Shower Notify Provider of: Fever, Increased Pain, Nausea and/or Vomiting - Discharge Plan Prescriptions/Med Rec: Albuterol/Ipratropium [DuoNeb 3.0-0.5 MG/3 ML] 3 ml NEB TID #1 box guaiFENesin [Mucinex] 1,200 mg PO BID #60 tab.er Levofloxacin [Levaquin] 500 mg PO DAILY #10 tab Magnesium Oxide 400 mg PO BID #60 tablet Saccharomyces Boulardii [Florastor] 250 mg PO BID #60 cap Home Medications: Home Meds Acetaminophen [Tylenol] 650 mg PO Q4H PRN 04/02/17 [History] Acetaminophen [Tylenol] 650 mg RECTAL Q4H PRN 04/02/17 [History] Aspirin 81 mg PO DAILY 04/02/17 [History] Famotidine 20 mg PO DAILY 04/02/17 [History] Sennosides/Docusate Sodium [Senna-Docusate Sodium] 2 each PO BID 04/02/17 [ History] fentaNYL [Duragesic] 1 patch TD Q72H 04/02/17 [History] risperiDONE [Risperdal] 1.5 mg PO BEDTIME 04/02/17 [History] Albuterol/Ipratropium [DuoNeb 3.0-0.5 MG/3 ML] 3 ml NEB TID #1 box 04/08/17 [Rx] Ibuprofen [IJD: Ibuprofen] 600 mg PO Q6H PRN tablet 04/08/17 [Rx] Levofloxacin [Levaquin] 500 mg PO DAILY #10 tab 04/08/17 [Rx] Magnesium Oxide 400 mg PO BID #60 tablet 04/08/17 [Rx] Saccharomyces Boulardii [Florastor] 250 mg PO BID #60 cap 04/08/17 [Rx] guaiFENesin [Mucinex] 1,200 mg PO BID #60 tab.er 04/08/17 [Rx] Patient Handouts: Bacteremia, Community-Acquired Pneumonia, Adult, [id number] Forms: ED Department Discharge Referrals: Eze Steve MD [Primary Care Provider] - - Discharge Summary/Plan Comment DC Time >30 min.: Yes (45 min) - General Info Date of Service: 04/08/17 Admission Dx/Problem (Free Text: Admission Diagnosis/Problem Admission Diagnosis/Problem Pneumonia Patient is seen this morning, awake and alert, resting comfortably in bed. Denies c/o pain/discomfort. VSS. Afebrile. Plans for DC back to [facility] today. Functional Status: Reports: Pain Controlled, Tolerating Diet, Urinating ( incontinent) - Review of Systems General: Denies: Fever HEENT: Reports: No Symptoms Pulmonary: Reports: Cough (improved) Cardiovascular: Reports: No Symptoms. Denies: Chest Pain (denies) Gastrointestinal: Reports: No Symptoms. Denies: Abdominal Pain (denies) Neurological: Reports: Confusion (baseline dementia- stable) Psychiatric: Reports: No Symptoms, Anxiety (intermittent, calm this morning) - Patient Data Vitals - Most Recent: Last Vital Signs Temp 99.0 F 04/08/17 03:12 Pulse 98 04/08/17 03:12 Resp 20 04/08/17 03:12 BP 136/60 04/08/17 03:12 Pulse Ox 93 L 04/08/17 03:12 Weight - Most Recent: 104 lb 9.6 oz I&O - Last 24 hours: Intake & Output 04/07/17 04/08/17 04/08/17 22:59 06:59 14:59 Intake Total 1260 250 Balance 1260 250 Lab Results - Last 24 hrs: Laboratory Results - last 24 hr 04/07/17 04/08/17 04/08/17 Range/Units 06:03 06:01 06:01 WBC 10.03 H (4.23-9.07) K/mm3 RBC 3.49 L (4.63-6.08) M/mm3 Hgb 11.2 L (13.7-17.5) gm/L Hct 34.9 L (40.1-51.0) % MCV 100.0 H (79.0-92.2) fl MCH 32.1 (25.7-32.2) pg MCHC 32.1 L (32.2-35.5) g/dl RDW Std Deviation 44.2 H (35.1-43.9) fL Plt Count 384 H (163-337) K/mm3 MPV 9.5 (9.4-12.3) fl Neut % (Auto) Cancelled Lymph % (Auto) Cancelled [place] % (Auto) Cancelled Eos % (Auto) Cancelled Baso % (Auto) Cancelled Neut # (Auto) Cancelled Lymph # (Auto) Cancelled [place] # (Auto) Cancelled Eos # (Auto) Cancelled Baso # (Auto) Cancelled Neutrophils % (Manual) 71 H (40-60) % Band Neutrophils % 6 (0-10) % Lymphocytes % (Manual) 18 L (20-40) % Atypical Lymphs % 0 % Monocytes % (Manual) 3 (2-10) % Eosinophils % (Manual) 1 (0.8-7.0) % Basophils % (Manual) 0 L (0.2-1.2) Metamyelocytes % 1 Differential Comment See note Manual Slide Review Cancelled Toxic Granulation 1+ slight Platelet Estimate Adequate RBC Morph Comment Normal Sodium 140 (136-145) mEq/L Potassium 3.5 (3.5-5.1) mEq/L Chloride 103 (98-107) mEq/L Carbon Dioxide 25 (21-32) mEq/L Anion Gap 15.5 H (5-15) BUN 10 (7-18) mg/dL Creatinine 1.0 (0.7-1.3) mg/dL Est Cr Clr Drug Dosing 46.79 mL/min Estimated GFR (MDRD) > 60 (>60) mL/min BUN/Creatinine Ratio 10.0 L (14-18) Glucose 94 (80-115) mg/dL Lactic Acid (0.4-2.0) mmol/L Calcium 9.7 (8.5-10.1) mg/dL Magnesium 1.7 L (1.8-2.4) mg/dl C-Reactive Protein 6.8 H* (<1.0) mg/dL 04/08/17 Range/Units 06:01 WBC (4.23-9.07) K/mm3 RBC (4.63-6.08) M/mm3 Hgb (13.7-17.5) gm/L Hct (40.1-51.0) % MCV (79.0-92.2) fl MCH (25.7-32.2) pg MCHC (32.2-35.5) g/dl RDW Std Deviation (35.1-43.9) fL Plt Count (163-337) K/mm3 MPV (9.4-12.3) fl Neut % (Auto) Lymph % (Auto) [place] % (Auto) Eos % (Auto) Baso % (Auto) Neut # (Auto) Lymph # (Auto) [place] # (Auto) Eos # (Auto) Baso # (Auto) Neutrophils % (Manual) (40-60) % Band Neutrophils % (0-10) % Lymphocytes % (Manual) (20-40) % Atypical Lymphs % % Monocytes % (Manual) (2-10) % Eosinophils % (Manual) (0.8-7.0) % Basophils % (Manual) (0.2-1.2) Metamyelocytes % Differential Comment Manual Slide Review Toxic Granulation Platelet Estimate RBC Morph Comment Sodium (136-145) mEq/L Potassium (3.5-5.1) mEq/L Chloride (98-107) mEq/L Carbon Dioxide (21-32) mEq/L Anion Gap (5-15) BUN (7-18) mg/dL Creatinine (0.7-1.3) mg/dL Est Cr Clr Drug Dosing mL/min Estimated GFR (MDRD) (>60) mL/min BUN/Creatinine Ratio (14-18) Glucose (80-115) mg/dL Lactic Acid 1.1 (0.4-2.0) mmol/L Calcium (8.5-10.1) mg/dL Magnesium (1.8-2.4) mg/dl C-Reactive Protein (<1.0) mg/dL SKIP Results - Last 24 hrs: Microbiology 04/06/17 07:55 Aerobic Blood Culture - Preliminary Blood - Venous NO GROWTH AFTER 1 DAY Anaerobic Blood Culture - Final 04/06/17 08:08 Aerobic Blood Culture - Preliminary Blood - Venous - Lab Draw NO GROWTH AFTER 1 DAY Anaerobic Blood Culture - Preliminary NO GROWTH AFTER 1 DAY Med Orders - Current: Current Medications Acetaminophen (Tylenol) 650 mg PO Q6H PRN PRN Reason: Pain/Fever Last Admin: 04/06/17 20:34 Dose: 650 mg Albuterol (Proventil Neb Soln) 2.5 mg NEB Q4HRRT PRN PRN Reason: Shortness of Breath Albuterol/Ipratropium (Duoneb 3.0-0.5 Mg/3 Ml) 3 ml NEB Q6HRRT [facility] Last Admin: 04/08/17 03:14 Dose: 3 ml Aspirin (Aspirin) 81 mg PO DAILY [facility] Last Admin: 04/07/17 08:19 Dose: 81 mg Enoxaparin Sodium (Lovenox) 40 mg SUBCUT DAILY [facility] Last Admin: 04/07/17 08:30 Dose: 40 mg Famotidine (Pepcid) 20 mg PO DAILY [facility] Last Admin: 04/07/17 08:19 Dose: 20 mg Fentanyl (Duragesic) 12 mcg TRDERM Q72H [facility] Last Admin: 04/06/17 18:29 Dose: 12 mcg Guaifenesin (Mucinex) 1,200 mg PO BID [facility] Last Admin: 04/07/17 22:45 Dose: 1,200 mg Haloperidol Lactate (Haldol) 1 mg IVPUSH Q6H PRN PRN Reason: restlessness Hydralazine HCl (Apresoline) 10 mg IVPUSH Q6H PRN PRN Reason: Hypertension Last Admin: 04/06/17 16:35 Dose: 10 mg Ceftriaxone Sodium 2 gm/ (Sodium Chloride) 100 mls @ 200 mls/hr IV Q12HR [facility] Last Admin: 04/07/17 22:45 Dose: 200 mls/hr Ibuprofen (Motrin) 600 mg PO Q6H PRN PRN Reason: Pain/Fever Magnesium Oxide (Magnesium Oxide) 400 mg PO DAILY [facility] Last Admin: 04/07/17 08:22 Dose: 400 mg Magnesium Oxide (Magnesium Oxide) 800 mg PO DAILY@1200 [facility] Last Admin: 04/07/17 11:38 Dose: 800 mg Metoprolol Tartrate (Lopressor) 5 mg IVPUSH Q4H PRN PRN Reason: HR >120 Last Admin: 04/06/17 21:15 Dose: 5 mg Miscellaneous Information (Remove Patch) 1 ea TRDERM Q72H [facility] Last Admin: 04/06/17 18:34 Dose: 1 ea Risperidone (Risperidal) 1.5 mg PO BEDTIME [facility] Last Admin: 04/07/17 22:44 Dose: 1.5 mg Saccharomyces Boulardii (Florastor) 250 mg PO BID [facility] Last Admin: 04/07/17 22:46 Dose: 250 mg Senna/Docusate Sodium (Senna Plus) 2 tab PO BID [facility] Last Admin: 04/07/17 22:45 Dose: 2 tab Sodium Chloride (Saline Flush) 10 ml FLUSH ASDIRECTED PRN PRN Reason: Keep Vein Open Last Admin: 04/02/17 14:37 Dose: 10 ml Temazepam (Restoril) 15 mg PO BEDTIME PRN PRN Reason: Insomnia Discontinued Medications Acetaminophen (Tylenol) 650 mg RECTAL NOW ONE Stop: 04/02/17 14:15 Last Admin: 04/02/17 20:43 Dose: Not Given Albuterol/Ipratropium (Duoneb 3.0-0.5 Mg/3 Ml) 3 ml NEB QID PRN PRN Reason: Shortness of Breath Azithromycin (Zithromax) 500 mg PO Q24H [facility] Last Admin: 04/06/17 16:27 Dose: 500 mg Enoxaparin Sodium (Lovenox) 30 mg SUBCUT DAILY [facility] Last Admin: 04/04/17 08:44 Dose: 30 mg Furosemide (Lasix) 10 mg IVPUSH NOW ONE Stop: 04/07/17 08:36 Last Admin: 04/07/17 09:51 Dose: 10 mg Haloperidol Lactate (Haldol) 1 mg IVPUSH Q8H PRN PRN Reason: restlessness Sodium Chloride (Normal Saline) 1,000 mls @ 999 mls/hr IV ONETIME ONE Stop: 04/02/17 15:04 Last Admin: 04/02/17 14:30 Dose: 999 mls/hr Sodium Chloride (Normal Saline) 500 mls @ 999 mls/hr IV ONETIME ONE Stop: 04/02/17 14:39 Last Admin: 04/02/17 15:37 Dose: 999 mls/hr Ceftriaxone Sodium 2 gm/ (Sodium Chloride) 100 mls @ 200 mls/hr IV ONETIME ONE Stop: 04/02/17 15:29 Last Admin: 04/02/17 15:07 Dose: 200 mls/hr Sodium Chloride (Normal Saline) 1,000 mls @ 100 mls/hr IV ASDIRECTED [facility] Last Admin: 04/05/17 11:22 Dose: 100 mls/hr Azithromycin 500 mg/ Sodium (Chloride) 250 mls @ 250 mls/hr IV Q24H [facility] Last Admin: 04/04/17 18:41 Dose: 250 mls/hr Ceftriaxone Sodium 2 gm/ (Sodium Chloride) 100 mls @ 200 mls/hr IV Q24H [facility] Last Admin: 04/05/17 15:19 Dose: 200 mls/hr Magnesium Sulfate 2 gm/ Premix 50 mls @ 25 mls/hr IV ONETIME ONE Stop: 04/05/17 12:54 Last Admin: 04/05/17 11:22 Dose: 25 mls/hr Azithromycin 250 mg/ Sodium (Chloride) 250 mls @ 250 mls/hr IV Q24H [facility] Last Admin: 04/05/17 19:42 Dose: Not Given Azithromycin 250 mg/ Sodium (Chloride) 250 mls @ 250 mls/hr IV Q24H [facility] Last Admin: 04/05/17 18:13 Dose: 250 mls/hr Sodium Chloride (Normal Saline) 1,000 mls @ 50 mls/hr IV ASDIRECTED [facility] Last Admin: 04/06/17 16:32 Dose: 50 mls/hr Levofloxacin/Dextrose 750 mg/ (Premix) 150 mls @ 100 mls/hr IV Q24H [facility] Last Admin: 04/06/17 21:15 Dose: 100 mls/hr Sodium Chloride (Sodium Chloride 0.45%) 1,000 mls @ 100 mls/hr IV ASDIRECTED [facility] Stop: 04/08/17 05:14 Last Admin: 04/07/17 19:58 Dose: 100 mls/hr Sodium Chloride (Sodium Chloride 0.45%) 500 mls @ 999 mls/hr IV ONETIME ONE Stop: 04/07/17 20:15 Last Admin: 04/07/17 19:52 Dose: 999 mls/hr Ketorolac Tromethamine (Toradol) 30 mg IVPUSH ONETIME ONE Stop: 04/02/17 14:19 Ketorolac Tromethamine (Toradol) 15 mg IVPUSH ONETIME ONE Stop: 04/02/17 14:19 Last Admin: 04/02/17 14:37 Dose: 15 mg Potassium Chloride (Klor-Con M20) 40 meq PO BID [facility] Stop: 04/05/17 21:01 Last Admin: 04/05/17 21:23 Dose: 40 meq - Exam Quality Assessment: Reports: DVT Prophylaxis General: Reports: Alert, Cooperative, No Acute Distress HEENT: Reports: Pupils Equal, EOMI, Mucous Membr. Moist/[place] Neck: Reports: Supple Lungs: Reports: Normal Respiratory Effort, Decreased Breath Sounds (mid to lower lobes bilat; poor insp effort) Cardiovascular: Reports: Regular Rate, Regular Rhythm, No Murmurs GI/Abdominal Exam: Normal Bowel Sounds, Soft, Non-Tender. No: Guarding, Rigid, Rebound, Tender (Male) Exam: Deferred Rectal (Males) Exam: Deferred Extremities: No Pedal Edema, Normal Capillary Refill Neurological: Reports: Other (baseline dementia- answers yes/no questions but unable to carry on other conversation--stable) Psy/Mental Status: Reports: Alert, Normal Affect, Normal Mood *Q Meaningful Use (DIS) - VTE *Q VTE Criteria *Q: - Stroke *Q Stroke Criteria *Q: - AMI *Q AMI Criteria *Q:
[2017-04-08] MEDS ORDERED: Sodium Chloride 0.45% 1,000 ML IV SCH (09:30)
[2017-04-08] MEDS: cefTRIAXone 2 GM in Sodium Chloride 0.9% 100 ML IV SCH (09:44)
[2017-04-08] MEDS: Saccharomyces Boulardii (Probiotic) 250 MG Cap PO SCH (09:46)
[2017-04-08] MEDS: Magnesium Oxide 400 MG Tab PO SCH ×2 (09:46→11:37)
[2017-04-08] MEDS: guaiFENesin 600 MG Tab.ER PO SCH (09:47)
[2017-04-08] MEDS: Aspirin 81 MG Tab.Chew PO SCH (09:47)
[2017-04-08] MEDS: Famotidine 20 MG Tab PO SCH (09:48)
[2017-04-08] MEDS: Enoxaparin 40 MG/0.4 ML Syringe SUBCUT SCH (10:08)
[2017-04-08 13:06] VITALS: BP 144/78
== END 2017-04-08 12:30 | DRG 194 ==
LOC: JD.ED 13:40 → UNDOADMIN 17:33 → JD.MS 17:33
PROVIDERS: ADMIT Internal Medicine Cardiovascular Disease; ATTEND Internal Medicine Cardiovascular Disease
DX: J18.9 Pneumonia, unspecified organism (principal); J13 Pneumonia due to Streptococcus pneumoniae; N18.9 Chronic kidney disease, unspecified; K59.09 Other constipation; N17.9 Acute kidney failure, unspecified; R78.81 Bacteremia; R53.1 Weakness; E83.42 Hypomagnesemia; F03.90 Unspecified dementia, unspecified severity, without behavioral disturbance, psychotic disturbance, mood disturbance, and anxiety; E87.6 Hypokalemia; G30.9 Alzheimer's disease, unspecified; F02.80 Dementia in other diseases classified elsewhere, unspecified severity, without behavioral disturbance, psychotic disturbance, mood disturbance, and anxiety; N18.2 Chronic kidney disease, stage 2 (mild); F20.9 Schizophrenia, unspecified; R31.9 Hematuria, unspecified; Z86.718 Personal history of other venous thrombosis and embolism; F41.9 Anxiety disorder, unspecified; Z66 Do not resuscitate; G89.29 Other chronic pain; Z79.82 Long term (current) use of aspirin; Z79.899 Other long term (current) drug therapy
CPT/HCPCS: 36415; 71045; 80053; 81001; 83605; 85025; 86140; 87040 ×2; 87077; 87086; 87181; 87184; 87804 ×2; 96361; 96365; 99285; J0696; J1885; J7030; J7040 ×2; J7050; P9612; 71046; 71046-26; 80048; 83735; 86738; 87502; 87503; 87641; 92610-GN; 93005; 94640; 94668; 99284; A9270-GY; J0360; J0456; J1650; J1956; J3475; J3490

== ENCOUNTER 2017-11-18 19:52 | Emergency (ER) | payer MEDICARE, MEDICAID ==
[2017-11-18 20:02] VITALS: BP 139/67
[2017-11-18] MEDS ORDERED: Sodium Chloride 0.9% 10 ML Syringe FLUSH PRN (20:13)
[2017-11-18] MEDS ORDERED: Albuterol/Ipratropium 3.0-0.5 MG/3 ML Neb Soln NEB ONE (20:14)
--- NOTE | 2017-11-18 20:15 | EDM.PDOC ---
ED HPI GENERAL MEDICAL PROBLEM - General Chief Complaint: Respiratory Problem Stated Complaint: [facility] Time Seen by Provider: 11/18/17 19:57 Source of Information: Reports: EMS, Care Home Records History Limitations: Reports: Altered Mental Status - History of Present Illness INITIAL COMMENTS - FREE TEXT/NARRATIVE: The patient presents from [facility] in [place]. He has a cough and low grade temp. He had rhonchi for lung sounds and his heart rate was elevated. The patient has had pneumonia before. He does not talk but mumbles and does not answer questions. It does not appear like he is in pain. The patient has a history of cerebral aneurysm and schizophrenia. Onset: Gradual Duration: Day(s): Improves with: Reports: None Worsens with: Reports: None Associated Symptoms: Reports: Cough. Denies: Nausea/Vomiting - Related Data Allergies Allergy/AdvReac Type Severity Reaction Status Date / Time No Known Allergies Allergy Verified 04/02/17 18:05 Home Meds: Home Meds Acetaminophen [Tylenol] 650 mg PO Q4H PRN 04/02/17 [History] Aspirin 81 mg PO DAILY 04/02/17 [History] Famotidine 20 mg PO DAILY 04/02/17 [History] Sennosides/Docusate Sodium [Senna-Docusate Sodium] 2 each PO BID 04/02/17 [ History] fentaNYL [Duragesic] 1 patch TD Q72H 04/02/17 [History] Magnesium Oxide 400 mg PO BID #60 tablet 04/08/17 [Rx] Azithromycin [Zithromax] 250 mg PO DAILY #5 tab 11/18/17 [Rx] Metoprolol Tartrate 25 mg PO DAILY 11/18/17 [History] guaiFENesin/Dextromethorphan [Tussin Dm Liquid] 10 ml PO Q4H PRN 11/18/17 [ History] risperiDONE [Risperdal] 1.5 mg PO BEDTIME 11/18/17 [History] Past Medical History Cardiovascular History: Reports: Aneurysm, Blood Clots/VTE/DVT Gastrointestinal History: Reports: Chronic Constipation Genitourinary History: Reports: Chronic Renal Insuffiency Musculoskeletal History: Reports: Other (See Below) Other Musculoskeletal History: chronic pain Neurological History: Reports: Cerebral Aneurysms Other Neuro History: Dementia Psychiatric History: Reports: Anxiety, Bipolar, Dementia, Schizophrenia Other Endocrine/Metabolic History: abnormal weight loss - Past Surgical History Musculoskeletal Surgical History: Reports: Other (See Below) Dermatological Surgical History: Reports: None Social & Family History - Family History Family Medical History: Noncontributory - Tobacco Use Smoking Status *Q: Unknown Ever Smoked - Caffeine Use Caffeine Use: Reports: None Other Caffeine Use: unsure Caffeine Use Comment: unable to eval - Recreational Drug Use Other Recreational Drug Type: unknown; pt currently in [facility] ED ROS GENERAL - Review of Systems Review Of Systems: See Below Constitutional: Reports: No Symptoms HEENT: Reports: No Symptoms Respiratory: Reports: Cough Cardiovascular: Reports: Other (Tachycardia) GI/Abdominal: Denies: Vomiting ED EXAM, GENERAL - Physical Exam Exam: See Below Exam Limited By: Altered Mental Status General Appearance: Alert, No Apparent Distress Ears: Normal External Exam Nose: Normal Inspection Head: Atraumatic, Normocephalic Neck: Normal Inspection Respiratory/Chest: No Respiratory Distress, Decreased Breath Sounds, Rhonchi, Wheezing Cardiovascular: No Edema, No Murmur, Tachycardia GI/Abdominal: Soft, Non-Tender, No Organomegaly, No Mass Extremities: Normal Inspection Course - Vital Signs Last Recorded V/S: Last Vital Signs Temp 98.1 F 11/18/17 20:01 Pulse 100 11/18/17 20:01 Resp 24 H 11/18/17 20:01 BP 139/67 11/18/17 20:01 Pulse Ox 93 L 11/18/17 20:01 - Orders/Labs/Meds Orders: Active Orders 24 hr Category Date Time Status Cardiac Monitoring [RC] . DIRECTED Care 11/18/17 20:13 Active Peripheral IV Care [RC] . DIRECTED Care 11/18/17 20:14 Active RT Aerosol Therapy [RC] ASDIRECTED Care 11/18/17 20:14 Active Chest 1V Frontal [CR] Stat Exams 11/18/17 20:13 Taken Sodium Chloride 0.9% [Saline Flush] Med 11/18/17 20:13 Active 10 ml FLUSH ASDIRECTED PRN Peripheral IV Insertion Adult [OM.PC] Stat Oth 11/18/17 20:13 Ordered Medication Orders Sodium Chloride (Saline Flush) 10 ml FLUSH ASDIRECTED PRN PRN Reason: Keep Vein Open Last Admin: 11/18/17 20:27 Dose: 10 ml Labs: Laboratory Tests 11/18/17 11/18/17 Range/Units 20:25 20:25 WBC 9.70 H (4.23-9.07) K/mm3 RBC 3.94 L (4.63-6.08) M/mm3 Hgb 12.9 L (13.7-17.5) gm/L Hct 39.5 L (40.1-51.0) % MCV 100.3 H (79.0-92.2) fl MCH 32.7 H (25.7-32.2) pg MCHC 32.7 (32.2-35.5) g/dl RDW Std Deviation 44.4 H (35.1-43.9) fL Plt Count 188 (163-337) K/mm3 MPV 10.2 (9.4-12.3) fl Neut % (Auto) 71.5 H (34.0-67.9) % Lymph % (Auto) 12.2 L (21.8-53.1) % Blaine % (Auto) 11.3 (5.3-12.2) % Eos % (Auto) 4.6 (0.8-7.0) Baso % (Auto) 0.1 (0.1-1.2) % Neut # (Auto) 6.93 H (1.78-5.38) K/mm3 Lymph # (Auto) 1.18 L (1.32-3.57) K/mm3 Blaine # (Auto) 1.10 H (0.30-0.82) K/mm3 Eos # (Auto) 0.45 (0.04-0.54) K/mm3 Baso # (Auto) 0.01 (0.01-0.08) K/mm3 Sodium 142 (136-145) mEq/L Potassium 4.1 (3.5-5.1) mEq/L Chloride 106 (98-107) mEq/L Carbon Dioxide 28 (21-32) mEq/L Anion Gap 12.1 (5-15) BUN 26 H (7-18) mg/dL Creatinine 1.3 (0.7-1.3) mg/dL Est Cr Clr Drug Dosing 38.54 mL/min Estimated GFR (MDRD) 55 (>60) mL/min BUN/Creatinine Ratio 20.0 H (14-18) Glucose 128 H (80-115) mg/dL Calcium 9.6 (8.5-10.1) mg/dL Total Bilirubin 0.4 (0.2-1.0) mg/dL AST 20 (15-37) U/L ALT 30 (16-63) U/L Alkaline Phosphatase 54 (46-116) U/L C-Reactive Protein 3.7 H* (<1.0) mg/dL Total Protein 7.9 (6.4-8.2) g/dl Albumin 3.3 L (3.4-5.0) g/dl Globulin 4.6 gm/dL Albumin/Globulin Ratio 0.7 L (1-2) Meds: Medications Generic Name Dose Route Start Last Admin Trade Name Freq PRN Reason Stop Dose Admin Sodium Chloride 10 ml 11/18/17 20:13 11/18/17 20:27 Saline Flush FLUSH 10 ml ASDIRECTED PRN Administration Keep Vein Open Discontinued Medications Generic Name Dose Route Start Last Admin Trade Name Freq PRN Reason Stop Dose Admin Albuterol/Ipratropium 3 ml 11/18/17 20:14 11/18/17 20:30 Duoneb 3.0-0.5 Mg/3 Ml NEB 11/18/17 20:15 3 ml ONETIME ONE Administration Azithromycin 500 mg 11/18/17 21:47 11/18/17 21:51 Zithromax PO 11/18/17 21:48 500 mg ONETIME ONE Administration Ceftriaxone Sodium 2 gm/ 100 mls @ 100 mls/hr 11/18/17 21:03 11/18/17 21:09 Sodium Chloride IV 11/18/17 22:02 100 mls/hr ONETIME ONE Administration - Re-Assessments/Exams Free Text/Narrative Re-Assessment/Exam: 11/18/17 20:21 I ordered an IV saline lock, labs, CXR and duoneb. 11/18/17 22:14 His CXR shows no infiltrates. His WBC was just mildly elevated at 9.7. His CRP was elevated at 3.7. It appears he does not have pneumonia but he has bronchitis and with his history this may rapidly progress to pneumonia. I ordered rocephin 2 grams IV and zithromax 500mg by mouth. I will discharge him home on zithromax for 4 days. The influenza screen was negative. 11/18/17 22:31 Departure - Departure Time of Disposition: 22:35 Disposition: Home, Self-Care 01 Condition: Good Clinical Impression: Bronchitis - Discharge Information *PRESCRIPTION DRUG MONITORING PROGRAM REVIEWED*: No *COPY OF PRESCRIPTION DRUG MONITORING REPORT IN PATIENT YFN: No Prescriptions: Azithromycin [Zithromax] 250 mg PO DAILY #5 tab Referrals: Eze Steve MD [Primary Care Provider] - 1 Week Forms: ED Department Discharge Additional Instructions: Take your medications as prescribed. Take the zithromax daily for 5 days. Please return if you are worse. - My Orders Last 24 Hours: My Active Orders 11/18/17 20:13 Cardiac Monitoring [RC] . DIRECTED Chest 1V Frontal [CR] Stat Sodium Chloride 0.9% [Saline Flush] 10 ml FLUSH ASDIRECTED PRN Peripheral IV Insertion Adult [OM.PC] Stat 11/18/17 20:14 Peripheral IV Care [RC] . DIRECTED RT Aerosol Therapy [RC] ASDIRECTED - Assessment/Plan Last 24 Hours: My Active Orders 11/18/17 20:13 Cardiac Monitoring [RC] . DIRECTED Chest 1V Frontal [CR] Stat Sodium Chloride 0.9% [Saline Flush] 10 ml FLUSH ASDIRECTED PRN Peripheral IV Insertion Adult [OM.PC] Stat 11/18/17 20:14 Peripheral IV Care [RC] . DIRECTED RT Aerosol Therapy [RC] ASDIRECTED
[2017-11-18] MEDS ORDERED: cefTRIAXone 2 GM in Sodium Chloride 0.9% 100 ML IV ONE (21:03)
[2017-11-18] MEDS ORDERED: Azithromycin 250 MG Tab PO ONE (21:47)
--- NOTE | 2017-11-19 13:18 | CR ---
Chest: Frontal view of the chest was obtained. Comparison: Prior chest x-ray of 04/07/17. Mild scarring is seen within the right mid and lower lung. No acute parenchymal change is seen within either lung. Heart size is normal. Tortuous thoracic aorta is seen. Bony structures are grossly intact. Impression: 1. Mild scarring within the right chest. Nothing acute is appreciated. Diagnostic code #2
== END 2017-11-18 22:58 | disposition home or self-care (01) ==
LOC: JD.ED 19:52
DX: J40 Bronchitis, not specified as acute or chronic (principal); N18.9 Chronic kidney disease, unspecified; F31.9 Bipolar disorder, unspecified; F41.9 Anxiety disorder, unspecified; F20.9 Schizophrenia, unspecified; Z79.899 Other long term (current) drug therapy; Z79.82 Long term (current) use of aspirin
CPT/HCPCS: 36415; 71045; 80053; 85025; 86140; 87804; 94640; 96365; 99285; A9270; J0696; J7030; J7050; 99284; J7620-GY